=== PATIENT | female | born 1990 ===

== ENCOUNTER 2021-12-29 08:03 | Outpatient (REF) | payer OTHER, SELFPAY ==
[2021-12-30 03:48] LABS: CT PCR DETECTED (Not Detect.); NG PCR NOT DETECTED (Not Detect.)
[2021-12-30 15:27] LABS: BV Int Neg Control Negative (Negative); BV Int Pos Control Positive (Positive)
[2022-01-01 11:43] LABS: HPV mRNA E6/E7 rflx Not Detected (Not Detected)
== END 2021-12-29 08:04 | disposition home or self-care (01) ==
LOC: HO.LAB 08:03
PROVIDERS: Advanced Practice Midwife; PCP Internal Medicine; Referring Provider Internal Medicine; Visit Provider Physician Assistant
DX: Z01.411 Encounter for gynecological examination (general) (routine) with abnormal findings (principal); Z11.51 Encounter for screening for human papillomavirus (HPV); N92.6 Irregular menstruation, unspecified; N91.1 Secondary amenorrhea; E66.01 Morbid (severe) obesity due to excess calories; Z68.43 Body mass index [BMI] 50.0-59.9, adult; J45.909 Unspecified asthma, uncomplicated; Z20.2 Contact with and (suspected) exposure to infections with a predominantly sexual mode of transmission
CPT/HCPCS: 81025; 87480; 87491; 87510; 87591; 87624; 87660; 88142

== ENCOUNTER 2021-12-31 15:42 | Outpatient (REF) | payer OTHER, SELFPAY ==
--- NOTE | ~2021-12-31 | US_ITS ---
EXAMINATION: US PELVIS CLINICAL INFORMATION: Morbid/severe obesity due to excess calories. COMPARISON: None TECHNIQUE: Ultrasound of the pelvis was performed using both transabdominal and transvaginal transducers along with Doppler. Transvaginal imaging was performed due to inadequate visualization transabdominally. FINDINGS: Uterus: The uterus is anteverted, anteflexed and measures 8.2 x 4.9 x 5.4 cm. The double wall endometrial thickness is 0.5 cm. The uterus is smooth in contour and has normal myometrial echogenicity. No visible fibroid. There are small nabothian cysts seen in the cervix. Adnexa: Both ovaries are visualized. There is normal color flow to the adnexa. There is no ovarian torsion. There is no pelvic ascites or fluid collection. Right ovary measures 2.2 x 2.3 x 2.8 cm and volume 7.4 mL. It appears unremarkable. Left ovary measures 2.5 x 1.7 x 1.8 cm and volume 4.0 mL. There is an exophytic anechoic cyst measuring 2.3 x 2.2 x 2.3 cm. Differential diagnosis may represent adnexal cyst. There is no free fluid in cul-de-sac. US/US pelvic and transvaginal IMPRESSION: Multiple small nabothian cysts. The uterus is unremarkable. Exophytic left ovarian or paraovarian cyst.
[2021-12-31 17:29] LABS: Hematocrit 39.2 % (37.0-47.0); Hemoglobin 12.3 g/dl (12.0-16.0); Mean Corpuscular HGB Conc 31.4 g/dl (31.0-35.0); Mean Corpuscular Hemoglobin 26.8 pg (27.0-33.0); Mean Corpuscular Volume 85.4 fL (80.0-98.0); Platelet Count 344 X10*3/uL (160-400); Red Blood Count 4.59 X10*6/uL (4.20-5.50); Red Cell Distribution Width 14.8 % (11.0-16.0); White Blood Count 7.8 X10*3/uL (4.8-10.8)
[2021-12-31 17:42] LABS: Estimated Average Glucose 103 mg/dL; Hemoglobin A1c % 5.2 %
[2021-12-31 18:09] LABS: Syphilis Screen Nonreactive (Nonreactive)
[2021-12-31 18:11] LABS: Thyroid Stimulating Hormone 1.56 uIU/mL (0.32-4.0)
[2022-01-01 08:34] LABS: ~Hepatitis C Antibody Nonreactive (Nonreactive)
[2022-01-01 08:46] LABS: HBsAGNum1 0.17 S/CO (0.00-0.99); HIV AB/AG Nonreactive (Nonreactive); HIV Num 1 0.06 S/CO (0.00-0.99); Hepatitis B Surface Antigen Negative (Negative)
== END 2021-12-31 15:43 | disposition home or self-care (01) ==
LOC: HO.US 15:42
PROVIDERS: PCP Internal Medicine; Visit Provider Advanced Practice Midwife
DX: Z01.419 Encounter for gynecological examination (general) (routine) without abnormal findings (principal); E66.01 Morbid (severe) obesity due to excess calories; N91.1 Secondary amenorrhea; N92.6 Irregular menstruation, unspecified; J45.909 Unspecified asthma, uncomplicated; Z20.2 Contact with and (suspected) exposure to infections with a predominantly sexual mode of transmission
CPT/HCPCS: 36415; 76830; 76856; 83036; 84443; 85027; 86780; 86803; 87340; 87389

== ENCOUNTER → 2022-01-02 12:52 | Outpatient (BNVA) | payer OTHER, SELFPAY | PROVIDERS: PCP Internal Medicine; Referring Provider Internal Medicine; Visit Provider Physician Assistant | DX: E66.01 Morbid (severe) obesity due to excess calories (principal); J45.909 Unspecified asthma, uncomplicated; R40.0 Somnolence | CPT/HCPCS: 99202 ==

== ENCOUNTER → 2022-01-07 09:10 | Outpatient (BNVA) | payer OTHER, SELFPAY | PROVIDERS: PCP Internal Medicine; Visit Provider Advanced Practice Midwife | DX: N76.0 Acute vaginitis (principal); B96.89 Other specified bacterial agents as the cause of diseases classified elsewhere; Z30.09 Encounter for other general counseling and advice on contraception; A74.9 Chlamydial infection, unspecified; E66.01 Morbid (severe) obesity due to excess calories; Z68.43 Body mass index [BMI] 50.0-59.9, adult | CPT/HCPCS: 99212 ==

== ENCOUNTER 2022-01-09 08:28 | Outpatient (REF) | payer OTHER, SELFPAY ==
--- NOTE | ~2022-01-09 | XR_ITS ---
EXAMINATION: XR CHEST CLINICAL INFORMATION: Somnolence. COMPARISON: Chest done on 07/06/2017. TECHNIQUE: 2 views of the chest were obtained. FINDINGS: No significant abnormality is noted involving the heart, lungs, mediastinum, bony thorax or soft tissues. No significant change. XR/XR chest 2V IMPRESSION: Unremarkable examination.
[2022-01-09 09:04] LABS: MANUAL DIFF FLAG NO
--- NOTE | 2022-01-09 09:05 | ECG_ITS ---
Test Reason : R40.0 Blood Pressure : / mmHG Vent. Rate : 073 BPM Atrial Rate : 073 BPM P-R Int : 180 ms QRS Dur : 088 ms QT Int : 384 ms P-R-T Axes : 030 032 022 degrees QTc Int : 423 ms Normal sinus rhythm Normal ECG No previous ECGs available Referred By: Ashely Lockhart Electronically Signed By:Davi Loaiza
[2022-01-09 09:24] LABS: Basophils Percent Auto 0.1 % (0-2); Eosinophils Absolute Auto 0.4 X10*3/uL (0.0-0.4); Eosinophils Percent Auto 6.2 % (0-4); Hematocrit 38.3 % (37.0-47.0); Hemoglobin 12.2 g/dl (12.0-16.0); Imm Gran Abs Auto 0.01 X10*3/uL (0.00-0.03); Imm Gran Pct Auto 0.1 % (0.0-0.4); Lymphocytes Percent Auto 29.1 % (20-40); Mean Corpuscular HGB Conc 31.9 g/dl (31.0-35.0); Mean Corpuscular Hemoglobin 26.7 pg (27.0-33.0); Mean Corpuscular Volume 83.8 fL (80.0-98.0); Mean Platelet Volume 8.8 fL (9.4-12.3); Monocytes Absolute Auto 0.5 X10*3/uL (0.1-1.2); Monocytes Percent Auto 6.7 % (2-11); Neutrophils Absolute Auto 3.9 x10*3/uL (2.0-8.3); Neutrophils Percent Auto 57.8 % (45-73); Platelet Count 321 X10*3/uL (160-400); Red Blood Count 4.57 X10*6/uL (4.20-5.50); Red Cell Distribution Width 14.7 % (11.0-16.0); White Blood Count 6.8 X10*3/uL (4.8-10.8)
[2022-01-09 09:29] LABS: Estimated Average Glucose 100 mg/dL; Hemoglobin A1c % 5.1 %
[2022-01-09 09:52] LABS: Alanine Aminotransferase 31 U/L (0-31); Albumin Level 4.2 g/dL (3.5-5.0); Alkaline Phosphatase 51 U/L (39-117); Anion Gap 13 (12-20); Aspartate Amino Transferase 28 U/L (5-31); Bilirubin Total 0.5 mg/dL (0.0-1.0); Blood Urea Nitrogen 14 mg/dL (9-16); C Reactive Protein 0.61 mg/dL (< or = 0.50); Calcium 9.2 mg/dL (8.4-10.2); Carbon Dioxide 23 mmol/L (22-29); Chloride 107 mmol/L (96-108); Cholesterol 165 mg/dL; Estimated Glomerular Filt Rate > 60; Glucose Random 82 mg/dL (60-115); HDL Cholesterol 49 mg/dL; Iron 37 mcg/dL (30-160); LDL Cholesterol Calculated 105 mg/dl; Percent Iron Saturation 8 % (15-50); Potassium 4.8 mmol/L (3.3-5.1); Sodium 138 mmol/L (135-145); Total Iron Binding Capacity 449 mcg/dL (228-428); Total Protein 7.4 g/dL (6.5-8.0); Triglycerides 56 mg/dL; Unsaturated Iron Binding 412 ug/dL
[2022-01-09 10:18] LABS: Ferritin 26 ng/mL (10-122); TSH reflex Free T4 0.71 uIU/mL (0.32-4.0); Vitamin D 25-OH Total 10.1 ng/mL (>30)
[2022-01-09 10:25] LABS: Folate 17.5 ng/mL (> or = 4.0); Vitamin B12 216 pg/mL (200-900)
[2022-01-09 10:44] LABS: Insulin 11 uU/mL (2-29)
[2022-01-12 13:56] LABS: Calcium (PTHI) 9.5 mg/dL (8.6-10.2); PTHI 132 pg/mL (16-77)
[2022-01-13 16:01] LABS: Zinc 76 mcg/dL (60-130)
[2022-01-14 08:56] LABS: Vitamin A 61 mcg/dL (38-98)
[2022-01-17 12:12] LABS: Vitamin B1 9 nmol/L (8-30)
== END 2022-01-09 08:29 | disposition home or self-care (01) ==
LOC: HO.LAB 08:28
PROVIDERS: PCP Internal Medicine; Visit Provider Physician Assistant
DX: Z01.818 Encounter for other preprocedural examination (principal); E66.01 Morbid (severe) obesity due to excess calories; J45.909 Unspecified asthma, uncomplicated; R40.0 Somnolence
CPT/HCPCS: 36415; 71046; 80053; 80061; 82306; 82607; 82728; 82746; 83036; 83525; 83540; 83970; 84425; 84443; 84590; 84630; 85025; 86140; 93005

== ENCOUNTER → 2022-01-23 12:54 | Outpatient (BNVA) | payer OTHER, SELFPAY | PROVIDERS: PCP Internal Medicine; Referring Provider Internal Medicine; Visit Provider Physician Assistant | DX: E66.01 Morbid (severe) obesity due to excess calories (principal); Z68.43 Body mass index [BMI] 50.0-59.9, adult | CPT/HCPCS: 83013; 99211; 99212 ==

== ENCOUNTER 2022-01-23 15:50 | Outpatient (REF) | payer OTHER, SELFPAY ==
[2022-01-25 11:22] LABS: H Pylori Breath Test Positive (Negative)
== END 2022-01-23 15:51 | disposition home or self-care (01) ==
LOC: HO.LNP 15:50
PROVIDERS: Visit Provider Physician Assistant
DX: Z13.89 Encounter for screening for other disorder (principal)
CPT/HCPCS: 83013

== ENCOUNTER → 2022-01-27 12:50 | Outpatient (BNVA) | payer OTHER, SELFPAY | PROVIDERS: PCP Internal Medicine; Referring Provider Internal Medicine; Visit Provider Dietitian, Registered | DX: E66.01 Morbid (severe) obesity due to excess calories (principal) | CPT/HCPCS: 97802 ==

== ENCOUNTER 2022-02-06 11:37 | Outpatient (REF) | payer OTHER, SELFPAY ==
[2022-02-06 17:15] LABS: CT PCR NOT DETECTED (Not Detect.); NG PCR NOT DETECTED (Not Detect.)
[2022-02-07 09:47] LABS: BV Int Neg Control Negative (Negative); BV Int Pos Control Positive (Positive)
[2022-02-27 02:17] LABS: HPV mRNA E6/E7 rflx Not Detected (Not Detected)
== END 2022-02-06 11:38 | disposition home or self-care (01) ==
LOC: HO.LAB 11:37
PROVIDERS: PCP Internal Medicine; Visit Provider Advanced Practice Midwife
DX: Z30.430 Encounter for insertion of intrauterine contraceptive device (principal); A74.9 Chlamydial infection, unspecified; B96.89 Other specified bacterial agents as the cause of diseases classified elsewhere; N76.0 Acute vaginitis; N91.1 Secondary amenorrhea; E66.01 Morbid (severe) obesity due to excess calories
CPT/HCPCS: 58300; 81025; 87480; 87491; 87510; 87591; 87624; 87660; 88142; 99212; J7298

== ENCOUNTER 2022-02-18 09:27 | Outpatient (REF) | payer OTHER, SELFPAY ==
--- NOTE | ~2022-02-18 | US_ITS ---
EXAMINATION: US COMPLETE ABDOMEN WITH LIVER ELASTOGRAPHY CLINICAL INFORMATION: Preoperative exam. Obesity. COMPARISON: Ultrasound abdomen 07/25/2008. TECHNIQUE: Real-time imaging of the abdominal viscera. Noninvasive ultrasound liver fibrosis assessment is performed using John ElastPQ point quantification shear wave elastography (2D-SWE) with a C5-2 MHz transducer. Multiple elastography samples are obtained. FINDINGS: PANCREAS: The visualized pancreatic head and body are normal in appearance. The tail of the pancreas is obscured from visualization by the overlying bowel gas. ABDOMINAL AORTA: The proximal, middle, and distal aortic segments are normal in caliber. INFERIOR VENA CAVA: Visualized portions are normal. LIVER: The liver demonstrates normal size, contour and echogenicity. No focal lesion or intrahepatic biliary duct dilatation. The right lobe measures 16.1 cm in length. The left lobe measures 13.6 cm in length. Portal flow is hepatopetal. Shear wave liver elastography median stiffness is 2.40 m/s (reference: normal median stiffness is 1.3 m/s or less). IQR/median stiffness to assess sampling precision is 0.08 (reference: good quality data set is IQR/median stiffness of 0.15 or less). GALLBLADDER: The gallbladder has been surgically removed. COMMON BILE DUCT: Normal in caliber measuring 0.67 cm in diameter. RIGHT KIDNEY: Normal. No hydronephrosis. No renal calculi or focal parenchymal lesions. The kidney measures 12.1 cm in maximum dimension. LEFT KIDNEY: Normal. No hydronephrosis. No renal calculi or focal parenchymal lesions. The kidney measures 11.5 cm in maximum dimension. SPLEEN: The spleen is enlarged. The spleen measures 15.1 cm in maximum dimension. FREE FLUID: None. US/US abdomen comp w elastography IMPRESSION: 1. Diffuse hepatic steatosis without focal lesion. 2. The rest of the abdominal ultrasound is unremarkable. 3. Liver elastography: Median liver stiffness 2.40 m/s corresponds to cACLD (ruled in). REFERENCE: Society of Radiologists in Ultrasound Liver Stiffness Thresholds (2020): LIVER STIFFNESS THRESHOLDS: *Liver Stiffness equal or less than 1.3 m/s: High probability of being normal. *Liver Stiffness less than 1.7 m/s: In the absence of other known clinical signs, rules out compensated advanced chronic liver disease. *Liver Stiffness 1.7-2.1 m/s: Suggestive of compensated advanced chronic liver disease but need further test for confirmation. *Liver Stiffness over 2.1 m/s: Rules in compensated advanced chronic liver disease. *Liver Stiffness over 2.4 m/s: Suggestive of clinically significant portal hypertension. QUALITY OF DATA SET: *IQR/Median value equal or less than 0.15 implies a quality data set. *IQR/Median value over 0.15 implies a poor quality data set. SIGNIFICANT CHANGE FROM PRIOR EXAM: Significant change if liver stiffness measurement is 10% or greater from prior exam. OTHER CONSIDERATIONS: The stage of liver fibrosis may be overestimated in the setting of acute hepatitis, liver inflammation, elevated liver function tests, hepatic vascular congestion, obstructive cholestasis, non-fasting state, and infiltrative diseases such as amyloidosis and lymphoma. In some patients with NAFLD, the liver stiffness thresholds for compensated advanced chronic liver disease may be lower. In causes other than viral hepatitis and NAFLD, liver stiffness thresholds are not well established.
--- NOTE | ~2022-02-18 | FL_ITS ---
EXAMINATION: XR FLUOROSCOPY UPPER GI WITH AIR CLINICAL INFORMATION: Upper GI air-contrast study. COMPARISON: Obesity. Preop exam. TECHNIQUE: Routine upper GI air-contrast study was performed in upright and lying position. FINDINGS: Following oral administration of thick barium and effervescent granules, there is normal propagation of bolus from the oral cavity through the pharynx, esophagus into stomach without any evidence of obstruction, narrowing or stricture. The course, caliber and peristalsis of the stomach, duodenal bulb and the sweep are normal. The mucosal pattern of the stomach and duodenum is normal. There is no gastroesophageal reflux or hiatal hernia. FLUOROSCOPY TIME: 1.8 minutes DOSE AREA PRODUCT: 70.064 uGy-m2 (microgray-meter squared) FL/FL upper GI w air IMPRESSION: Unremarkable upper GI air-contrast study.
== END 2022-02-18 09:28 | disposition home or self-care (01) ==
LOC: HO.US 09:27
PROVIDERS: Visit Provider Physician Assistant
DX: Z01.818 Encounter for other preprocedural examination (principal); E66.01 Morbid (severe) obesity due to excess calories; R40.0 Somnolence; J45.909 Unspecified asthma, uncomplicated
CPT/HCPCS: 74246; 76705; 76981

== ENCOUNTER 2022-02-25 10:10 | Outpatient (REF) | payer OTHER, SELFPAY | END 2022-02-25 10:11 | disposition home or self-care (01) | LOC: HO.LAB 10:10 | PROVIDERS: Visit Provider Advanced Practice Midwife | DX: Z13.89 Encounter for screening for other disorder (principal) ==

== ENCOUNTER → 2022-02-27 15:03 | Outpatient (BNVA) | payer OTHER, SELFPAY | PROVIDERS: PCP Internal Medicine; Referring Provider Internal Medicine; Visit Provider Physician Assistant | DX: E66.01 Morbid (severe) obesity due to excess calories (principal); A04.8 Other specified bacterial intestinal infections; Z68.43 Body mass index [BMI] 50.0-59.9, adult | CPT/HCPCS: 99212 ==

== ENCOUNTER → 2022-03-06 12:51 | Outpatient (BNVA) | payer OTHER, SELFPAY | PROVIDERS: PCP Internal Medicine; Visit Provider Physician Assistant | DX: Z11.0 Encounter for screening for intestinal infectious diseases (principal) | CPT/HCPCS: 99211 ==

== ENCOUNTER 2022-03-06 15:13 | Outpatient (REF) | payer OTHER, SELFPAY ==
[2022-03-07 13:51] LABS: H Pylori Breath Test Negative (Negative)
== END 2022-03-06 15:14 | disposition home or self-care (01) ==
LOC: HO.LNP 15:13
PROVIDERS: Visit Provider Physician Assistant
DX: Z01.818 Encounter for other preprocedural examination (principal)
CPT/HCPCS: 83013

== ENCOUNTER → 2022-04-06 12:50 | Outpatient (BNVA) | payer OTHER, SELFPAY | PROVIDERS: PCP Internal Medicine; Visit Provider Physician Assistant | DX: E66.01 Morbid (severe) obesity due to excess calories (principal); Z68.43 Body mass index [BMI] 50.0-59.9, adult; I10 Essential (primary) hypertension | CPT/HCPCS: 99212 ==

== ENCOUNTER → 2022-04-27 14:01 | Outpatient (BNVA) | payer OTHER, SELFPAY | PROVIDERS: PCP Internal Medicine; Visit Provider Physician Assistant | DX: E66.01 Morbid (severe) obesity due to excess calories (principal); Z68.43 Body mass index [BMI] 50.0-59.9, adult | CPT/HCPCS: 99212 ==

== ENCOUNTER 2022-06-09 08:08 | Inpatient (IN) | payer OTHER, SELFPAY ==
[2022-05-26 15:23] VITALS: BMI 50.9
[2022-05-27 09:22] LABS: MANUAL DIFF FLAG NO
[2022-05-27 09:37] LABS: Basophils Percent Auto 0.3 % (0-2); Eosinophils Absolute Auto 0.3 X10*3/uL (0.0-0.4); Eosinophils Percent Auto 4.1 % (0-4); Hematocrit 38.4 % (37.0-47.0); Hemoglobin 12.7 g/dl (12.0-16.0); Imm Gran Abs Auto 0.02 X10*3/uL (0.00-0.03); Imm Gran Pct Auto 0.3 % (0.0-0.4); Lymphocytes Absolute Auto 1.6 X10*3/uL (1.2-4.9); Lymphocytes Percent Auto 22.5 % (20-40); Mean Corpuscular HGB Conc 33.1 g/dl (31.0-35.0); Mean Corpuscular Hemoglobin 27.1 pg (27.0-33.0); Mean Corpuscular Volume 81.9 fL (80.0-98.0); Mean Platelet Volume 9.2 fL (9.4-12.3); Monocytes Absolute Auto 0.5 X10*3/uL (0.1-1.2); Monocytes Percent Auto 6.4 % (2-11); Neutrophils Absolute Auto 4.6 x10*3/uL (2.0-8.3); Neutrophils Percent Auto 66.4 % (45-73); Platelet Count 365 X10*3/uL (160-400); Red Blood Count 4.69 X10*6/uL (4.20-5.50); Red Cell Distribution Width 14.2 % (11.0-16.0)
[2022-05-27 09:46] LABS: Estimated Average Glucose 97 mg/dL
[2022-05-27 09:52] LABS: Prothrombin Time 11.7 SEC (10.0-13.1)
[2022-05-27 09:54] LABS: Partial Thromboplastin Time 36.3 SEC (26.0-36.4)
[2022-05-27 10:04] LABS: Alanine Aminotransferase 19 U/L (0-31); Albumin Level 4.5 g/dL (3.5-5.0); Alkaline Phosphatase 49 U/L (39-117); Anion Gap 15 (12-20); Aspartate Amino Transferase 27 U/L (5-31); Bilirubin Total 0.7 mg/dL (0.0-1.0); Blood Urea Nitrogen 20 mg/dL (9-16); C Reactive Protein 0.97 mg/dL (< or = 0.50); Calcium 9.6 mg/dL (8.4-10.2); Carbon Dioxide 23 mmol/L (22-29); Chloride 106 mmol/L (96-108); Cholesterol 186 mg/dL; Creatinine Clr Calc Pharmacy 130.2; Estimated Glomerular Filt Rate > 60; Glucose Random 84 mg/dL (60-115); HDL Cholesterol 44 mg/dL; LDL Cholesterol Calculated 130 mg/dl; Potassium 4.3 mmol/L (3.3-5.1); Sodium 140 mmol/L (135-145); Total Protein 7.5 g/dL (6.5-8.0); Triglycerides 60 mg/dL
[2022-05-27 10:35] LABS: TSH reflex Free T4 0.97 uIU/mL (0.32-4.0)
[2022-05-27 11:10] LABS: Insulin 15 uU/mL (2-29)
--- NOTE | 2022-06-05 20:10 | MHC.SHP ---
Pre-Procedural Eval Section A Date of Service: 06/05/22 The patient is an INPATIENT: Yes The History & Physical has been completed within 30 days and I have reviewed it.: Yes Section B Chief Complaint: obesity Relevant Family History (Specify if Yes): No Relevant Social History: None Present Medications: None Medical History: No relevant PMH History of Previous Operations: No relevant previous surgery Allergies: Allergies Allergy/AdvReac Type Severity Reaction Status Date / Time No Known Allergies Allergy Mild NKA Verified 04/27/22 14:09 Review of Systems Sugical H&P ROS: Negative: Constitution, Cardiovascular, Respiratory, Neurological, Psychiatric, Hem-Onc, Allergic/Immunologic, Gastrointestinal, Genitourinary, Musculoskeletal, Integumentary, Endocrine and Eyes/Ears/Nose/Throat Exam Surgical H&P Exam: Normal: HEENT, Normal: Heart, Normal: Lungs, Normal: Extremities, Normal: Abdomen, Normal: Skin and Normal: Neurological Plan Diagnosis/Plan: Unchanged I have reviewed the history and physical and performed a pertinent physical examination on my patient. No changes have occurred unless specified.
--- NOTE | 2022-06-08 10:34 | P.CONAN_ITS ---
Documented by User: Carmen Zhou NP 06/08/22 10:36 HPI - Anesthesia Eval Consult details Narrative: 32yo F for Gastrectomy Sleeve,Possible diaphragmatic hernia,possible ventral hernia,possible open PMFSH Active Problems Active Problems: All Active Problems (Updated 05/26/22 @ 15:26 by Linda Uriarte RN) Potential exposure to STD (Acute) Well woman exam with routine gynecological exam (Acute) Amenorrhea, secondary (Acute) Menstrual periods irregular (Acute) Obesity, morbid, BMI 50 or higher (Acute) Daytime somnolence (Acute) Pre-op evaluation (Acute) Chlamydia infection (Acute) Bacterial vaginosis (Acute) control counseling (Acute) Cervical cancer screening (Acute) H. pylori infection (Acute) Hypertension (Acute) GERD (gastroesophageal reflux disease) (Acute) Moderate asthma (Acute) Past Medical History Medical History GERD (gastroesophageal reflux disease) HTN (hypertension) Moderate asthma Family History Family History Father Hypertension Glaucoma Mother Hypertension Asthma Son In good health Sister In good health Sister No problems noted. Brother No problems noted. Surgical History Surgical History History of laparoscopic cholecystectomy Social History Social History Are you a primary health care marketing specialist to a significant other at home: No Do you presently have visiting nurse or other home services: No Alcohol intake: current Alcohol intake frequency: holidays/special occasions only Patient Tobacco Use Status: Former Tobacco user Quit Date: 04/27/22 Tobacco use type: Cigarette Cigarettes Per Day: 5 Use of substances other than those prescribed or required for medical reasons: No Have you been hit, kicked, punched, or otherwise hurt by someone within the past year? If so, by whom?: No Are you DNR?: No Advance Directives: No Advance Directives Information Provided: Yes (brochure mailed) Advance Directives on File: No Recently lost weight without trying: No Eating poorly because of decreased appetite: No Nutrition Risks: No Nutritional Risk Patient : No FDLMP: 05/21/22 : No Poor oral hygiene: No Meds Allergies Allergy/AdvReac Type Severity Reaction Status Date / Time No Known Allergies Allergy Mild NKA Verified 04/27/22 14:09 Exam Exam Date and Time: June 08, 2022 1034 Height,Weight and Vital Signs: Height 5 ft 5 in Weight 138.799 kg Pertinent Lab Results Pertinent Lab Results: Laboratory Tests 05/27/22 05/27/22 05/27/22 09:20 09:20 09:20 WBC 7.0 RBC 4.69 Hgb 12.7 Hct 38.4 MCV 81.9 MCH 27.1 MCHC 33.1 RDW 14.2 Plt Count 365 MPV 9.2 L Immature Gran % (Auto) 0.3 Neut % (Auto) 66.4 Lymph % (Auto) 22.5 [place] % (Auto) 6.4 Eos % (Auto) 4.1 H Baso % (Auto) 0.3 Lymph # (Auto) 1.6 [place] # (Auto) 0.5 Eos # (Auto) 0.3 Baso # (Auto) 0.0 Abs Immat Gran (auto) 0.02 Absolute Neuts (auto) 4.6 Absolute Nucleated RBC 0.000 Nucleated RBC % (auto) 0.0 PT 11.7 INR 1.0 APTT 36.3 Sodium 140 Potassium 4.3 Chloride 106 Carbon Dioxide 23 Anion Gap 15 BUN 20 H Creatinine 0.87 Estim Creat Clear Calc 130.2 Estimated GFR > 60 Random Glucose 84 Estimat Average Glucose Hemoglobin A1c % Insulin Level 15 Calcium 9.6 Total Bilirubin 0.7 AST 27 ALT 19 Alkaline Phosphatase 49 C-Reactive Protein 0.97 H Total Protein 7.5 Albumin 4.5 Triglycerides 60 Cholesterol 186 LDL Cholesterol, Calc 130 HDL Cholesterol 44 TSH 0.97 Blood Type Antibody Screen 05/27/22 05/27/22 09:20 09:20 WBC RBC Hgb Hct MCV MCH MCHC RDW Plt Count MPV Immature Gran % (Auto) Neut % (Auto) Lymph % (Auto) [place] % (Auto) Eos % (Auto) Baso % (Auto) Lymph # (Auto) [place] # (Auto) Eos # (Auto) Baso # (Auto) Abs Immat Gran (auto) Absolute Neuts (auto) Absolute Nucleated RBC Nucleated RBC % (auto) PT INR APTT Sodium Potassium Chloride Carbon Dioxide Anion Gap BUN Creatinine Estim Creat Clear Calc Estimated GFR Random Glucose Estimat Average Glucose 97 Hemoglobin A1c % 5.0 Insulin Level Calcium Total Bilirubin AST ALT Alkaline Phosphatase C-Reactive Protein Total Protein Albumin Triglycerides Cholesterol LDL Cholesterol, Calc HDL Cholesterol TSH Blood Type A Positive Antibody Screen NEGATIVE Narrative Narrative: EKG 12/2021 Vent. Rate : 073 BPM ? ? Atrial Rate : 073 BPM ?? P-R Int : 180 ms? QRS Dur : 088 ms ? ? QT Int : 384 ms ? ? ? P-R-T Axes : 030 032 022 degrees ?? QTc Int : 423 ms ? Normal sinus rhythm Normal ECG No previous ECGs available Documented by User: Umesh Wilkinson MD 06/09/22 10:59 PMFSH Past Medical History Medical History GERD (gastroesophageal reflux disease) HTN (hypertension) Moderate asthma Family History Family History Father Hypertension Glaucoma Mother Hypertension Asthma Son In good health Sister In good health Sister No problems noted. Brother No problems noted. Family history of problems with anesthesia: No Surgical History Surgical History History of laparoscopic cholecystectomy History of Problems with Anesthesia: No Social History Social History Are you a primary health care marketing specialist to a significant other at home: No Do you presently have visiting nurse or other home services: No Alcohol intake: current Alcohol intake frequency: holidays/special occasions only Patient Tobacco Use Status: Former Tobacco user Quit Date: 04/27/22 Tobacco use type: Cigarette Cigarettes Per Day: 5 Use of substances other than those prescribed or required for medical reasons: No Have you been hit, kicked, punched, or otherwise hurt by someone within the past year? If so, by whom?: No Are you DNR?: No Advance Directives: No Advance Directives Information Provided: Yes (brochure mailed) Advance Directives on File: No Recently lost weight without trying: No Eating poorly because of decreased appetite: No Nutrition Risks: No Nutritional Risk Patient : No FDLMP: 05/21/22 : No Poor oral hygiene: No Meds Allergies Allergy/AdvReac Type Severity Reaction Status Date / Time No Known Allergies Allergy Mild NKA Verified 04/27/22 14:09 Exam Airway Mallampati Class: III TM Dist: >3cm Neck ROM: Full Loose/Missing/Broken Teeth: No Heart: rrr+[id number] Lungs: cta b/l Assessment and Plan Assessment Anesthesia Assessment: Anesthesia Plan Discussed and Chart Reviewed Final Anesthetic Review Family History of Problems with Anesthesia: No History of Problems with Anesthesia: No NPO: Yes ASA Class: III Final Preanesthetic Review: No Changes in Pt Med Stat, Meds/Allgs Chart Reviewed, Consent Obtained/Reviewed and Anes Risks/Benef Reviewed Patient Risk: Intermediate Procedure Risk: Intermediate Assessment/Block/Sedation in SS: Assess/Block/Sedation-SS Anesthetic Plan Anesthetic Plan: GA and Agree w/ Assess. and Plan Disposition: Standard PACU
[2022-06-08 12:55] LABS: COVID-19 Test Negative (Negative)
[2022-06-09] VITALS (20 sets, daily range): BP systolic 129–167; BP diastolic 65–105; PULSE 85–102; RESP 16–20; TEMP 36.2–37.3; O2SAT 93–99
[2022-06-09 08:26] LABS: UPreg QC Valid YES; Urine Pregnancy NEGATIVE (NEGATIVE)
--- NOTE | 2022-06-09 08:26 | PHA.MEDREC ---
Pharmacy Consult ? Medication Reconciliation Pharmacy has completed the medication reconciliation. Reviewed med rec done by nursing
[2022-06-09] MEDS: Lactated Ringers 1,000 ML 999 ML IV (08:50)
[2022-06-09] MEDS: Lactated Ringers 1,000 ML 100 ML IVCONT ×2 (08:51→14:53)
--- NOTE | 2022-06-09 11:06 | PM.OP ---
Brief Operative Note Date of Service: 06/09/22 Pre-op diagnosis: Morbid obesity and comorbidities (see below) Post-op diagnosis: same Procedure: INITIAL PATIENT BMI ON PRESENTATION AT OUR OFFICE: 57.2 kg/m2 LAST BMI BEFORE SURGERY: 50.2 kg/m2 COMORBIDITIES: asthma, hypertension, liver steatosis, liver fibrosis ?The patient presented to the Weight Management Program with significant obesity that was negatively impacting the patient's comorbidities as listed above.? The program is a phased program with a special focus on preoperative medical weight management to promote substantial weight loss and prepare the patients for the second phase of the program: bariatric surgery. The patient participated in an intensive weekly lifestyle ?intervention and exercise program during which the patient ?has lost between the initial office visit and the last preoperative visit 41.6 lbs, or 12.11% of initial actual body weight. It was deemed appropriate for the patient to now have bariatric surgery. In light of the current Covid-19 pandemic and the well documented strong association of obesity and increased risk of worse outcomes if infected with Covid-19 (REFERENCES:https://pubmed.ncbi.nlm.nih.gov/58213111/,?https://pubmed.ncbi.nlm.nih.gov/38012972/), any delay in undergoing bariatric surgery may lead to the patient's worsening health condition and increased?risk of more severe Covid-19 disease if infected. In addition a recent?study from [facility] published in [employer] on 09/22/2021 ([email or web address]) found that, among patients with obesity, substantial weight loss achieved with surgery was associated with improved outcomes of COVID-19 infection. The findings suggest that obesity can be a modifiable risk factor for the severity of COVID-19 infection. In addition, the patient met the BMI-criteria for bariatric surgery based on the BMI on initial presentation. The patient should not be penalized for achieving such weight loss because ?it is not sustainable long-term without surgical intervention and it was achieved in preparation for bariatric surgery ?under my direction and based on my published research ([email or web address] and?[email or web address].soard.org/article/[email or web address](84)03549-X/pdf) ?that a 10% preoperative weight loss improves long-term weight loss after surgery and reduces perioperative complications.? Insurance carriers such as [facility] have endorsed my recommendations ?and have included in their policies criteria to include a 10% preoperative weight loss requirement. PROCEDURE: Esophago-gastroscopy, laparoscopic lysis of adhesions, laparoscopic sleeve gastrectomy and laparoscopic gastropexy INDICATIONS: This is a 32 year-old female who was electively scheduled for laparoscopic, possibly open sleeve gastrectomy. The risks and complications of the procedure were discussed with the patient in advance, particularly the possibility of ; pulmonary embolism; staple line leak; bleeding; GERD; cardiac, pulmonary, or renal complications; as well as long-term problems such as insufficient weight loss, vitamin deficiency, strictures, or ulcers. The patient understood all the risks, and was in agreement to proceed with surgery. DESCRIPTION OF PROCEDURE: After informed consent was obtained from the patient, the patient was given preoperative antibiotics, and was transferred to the operating room. After successful induction of general anesthesia, pneumatic compression devices were placed on both lower extremities. An upper endoscopy was performed next. The oropharynx and esophagus appeared to be within normal limits. There was no diaphragmatic hernia present consistent with the findings of the preoperative upper GI. The stomach was entered. Then after all fluid and air were suctioned and the stomach was fully decompressed, the scope was withdrawn and secured in the mid esophagus. The patient was then prepped and draped in the usual sterile manner, and abdominal access was established at the right upper quadrant with the Adal technique. A 12 mm blunt port was inserted, and the abdomen was insufflated with CO2 to a pressure of 15 mmHg. Under direct visualization, additional ports were placed, specifically two 5 mm Versi-step ports to the left upper quadrant, and a 5 mm Versi-Step port to the right upper quadrant. 1% lidocaine plain was used to infiltrate all port sites as well as all fascia defects. Following that, the patient was placed in a steep reverse Trendelenburg position. An additional 5 mm port was placed to the right flank for the Mediflex retractor that was used to retract the left lobe of the liver. The gastro-esophageal fat pad was opened with the ultrasonic device (Thunderbeat, Olympus) and the anterior esophagus and hiatus were exposed. The angle of His was opened with the ultrasonic device the fundus of the stomach from any diaphragmatic and splenic attachments. I then opened the gastrocolic ligament between the transverse colon and the greater curvature of the stomach with the ultrasonic device to enter the lesser sac and facilitate the ligation of the short gastric vessels. I started at a mid-point along the greater curvature and using the Thunderbeat, all short gastric vessels were divided all the way to the angle of His until the left otf was completely dissected at its entirety. I then divided the gastro-colic ligament distally to a distance of about 3-4 cm proximal to the pylorus. There were extensive congenital adhesions between the pancreas and posterior gastric wall. Those were lysed completely with the ultrasonic device. Adhesiolysis took approximately 45 min to complete. The stomach was then divided transversely with one Endo JESSIE-45 purple, one JESSIE-45 orange load, one JESSIE-60 purple load and three JESSIE-60 articulating orange loads using the AEON stapler and loads. Every effort was made that the gastric sleeve had a tubular shape and an even caliber throughout. Once the sleeve resection was completed, the staple line of the gastric sleeve was reinforced with Hemoclips. The resected stomach was retrieved without difficulty from the Adal port. A gastropexy was then performed in order to prevent postoperative GERD and partial gastric volvulus. Several interrupted 2.0 Surgidac sutures were placed between the sleeve's staple line and the previously divided greater omentum and gastro-colic ligament using the Endo-Stitch device. ?An upper endoscopy was performed. There was no narrowing at the GE junction. The scope was easily advanced all the way to the pylorus which was clearly visualized. There was no narrowing anywhere and the sleeve's caliber was even throughout. The sleeve's staple line was inspected and there was no evidence of ischemia, bleeding or dehiscence. At that point the gastroscope was withdrawn from the patient?s mouth while we were decompressing the bowel and the stomach from any remaining air. I looked into the lesser sac to see how the sleeve was situating and it was situating well. There was no bleeding from the staple line, spleen, or short gastric vessels. The Mediflex retractor was removed, and the undersurface of the liver was inspected and there was no bleeding. The patient was placed in supine position. I closed the fascial defect of the 12 mm port site with a figure of eight #1 Polysorb suture. Then 30cc Ropivacaine plain with 10 mg of Dexamethasone were used to infiltrate the fascial closure as well as all skin incisions. A total of 7ml of Zynrelef was applied in the Adal wound. At this point, the abdomen was deflated, all ports were removed under direct vision, and no bleeding was noted from any of the port sites. The skin incisions were irrigated with saline and were closed with 4-0 absorbable monofilament sutures. Steri-Strips and OpSites were used to cover all incisions. The patient was extubated and was transferred in stable condition to the recovery room for further care. I was present and performed all cody parts of the procedure. Richy was the educational/development assistant. There were no residents to assist with this case. Xu Newton MD, PhD, FACS Surgeon: Flavio Newton MD Anesthesia: GETA, local and other (TAP block and ml of Zynrelef) Was an Balance Engineer used for this Procedure?: No Balance Engineer: Ashely Lockhart Estimated blood loss (mL): 10 Urine output (mL): 0 (No Patel to record) Pathology: other (Stomach) Condition: stable Disposition: PACU
--- NOTE | 2022-06-09 11:08 | PM.PNGS ---
Subjective Subjective Date of Service: 06/10/22 Interval history: Patient has mild incisional pain, but was able to ambulate and use the incentive spirometer. She is tolerating phase 1 bariatric diet Physical Exam Vital Signs: Vital Signs: Last Vital Signs Temp 97.1 F 06/09/22 08:24 Pulse 98 06/09/22 08:24 Resp 18 06/09/22 08:24 BP 151/88 H 06/09/22 08:24 Pulse Ox 98 06/09/22 08:24 O2 Del Method 06/09/22 08:24 BMI result Body Mass Index 50.9 GI: Inspection: Yes normal to inspection, Yes incision (clean, dry and intact) and Yes obesity Extrem: Right lower extremity: normal to inspection (no calf tenderness) Left lower extremity: normal to inspection (no calf tenderness) Objective Data Active Medications Albuterol Sulfate (Albuterol Sulfate (0.083%) 2.5 Mg/3 Ml Vial.Neb) 2.5 mg INHALE ONCE PRN PRN Reason: Shortness of Breath/Wheezing Fentanyl (Fentanyl Citrate/Pf 100 Mcg/2 Ml Vial) 50 mcg IVPUSH Q5M PRN; Protocol PRN Reason: Pain, Moderate (Pain Scale 4-6 Hydromorphone HCl (Hydromorphone Hcl 0.5 Mg/0.5 Ml Syringe) 0.5 mg IVPUSH Q5M PRN; Protocol PRN Reason: Pain, Severe (Pain Scale 7-10) Lactated Ringer's (Lr) 1,000 mls @ 100 mls/hr IVCONT .Q10H MARY BETH Last Admin: 06/09/22 08:51 Dose: 100 mls/hr Documented By: MICHELLE Promethazine HCl 6.25 mg/ (Sodium Chloride) 50.25 mls @ 201 mls/hr IV ONCE PRN PRN Reason: Nausea and Vomiting Ondansetron HCl (Ondansetron Hcl 4 Mg/2 Ml Vial) 4 mg IVPUSH ONCE PRN PRN Reason: Nausea and Vomiting Labs CBC & Chem 7: 06/10/22 06:03 06/10/22 06:03 Labs: Laboratory Results - last 24 hr 06/08/22 06/09/22 12:28 08:09 Urine Test NEGATIVE COVID-19 (YONIS) Negative COVID-19 Clin Com See Note Procedures Date of Service Date of Service: 06/10/22 Progress Note: A&P Assessment and plan (1) Obesity, morbid, BMI 50 or higher: Status: Acute Assessment and Plan: s/p laparoscopic sleeve gastrectomy, lysis of adhesions and gastropexy Doing well Check am labs. If OK, will discharge home (2) GERD (gastroesophageal reflux disease): Status: Acute (3) Moderate asthma: Status: Acute (4) Hypertension: Status: Acute (5) Steatosis, liver: Status: Acute (6) Liver fibrosis: Status: Acute (7) S/P laparoscopic sleeve gastrectomy: Status: Acute (8) Congenital intra-abdominal adhesions: Status: Acute Time Spent With Patient Time: Total time spent is greater than 50% in coordination of care (as documented) at patient's floor/unit and/or counseling patient: Quality Stroke Does the patient have a stroke diagnosis?: No VTE Prior VTE?: No VTE Risk Level:: Surgical - moderate VTE Device Contraindication: N/A - Device Ordered VTE Drug Contraindication: Treatment Not Indicated
--- NOTE | 2022-06-09 13:53 | P.DS_ITS ---
DS: Providers Provider Date of Service: 06/10/22 Date of admission: 06/09/22 08:08 Primary care physician: Unknown Physician DS: Diagnosis Discharge Diagnosis (1) Obesity, morbid, BMI 50 or higher: Status: Acute (2) GERD (gastroesophageal reflux disease): Status: Acute (3) Moderate asthma: Status: Acute (4) Hypertension: Status: Acute (5) Steatosis, liver: Status: Acute (6) Liver fibrosis: Status: Acute DS: Summary Hospital Course Hospital Course: ADMITTING DIAGNOSIS: morbid obesity, asthma DISCHARGE DIAGNOSIS: same, s/p laparoscopic sleeve gastrectomy PAST SURGICAL HISTORY: lap cholecystectomy PROCEDURE: upper endoscopy, laparoscopic sleeve gastrectomy DISCHARGE SUMMARY: History of Present Illness: The patient is a 32 year-old woman with a BMI of 57.2 kg/m2 and associated co- morbidities as described above. The patient had extensive work-up,lost 32 lbs preoperatively and was electively scheduled for laparoscopic, possible open sleeve gastrectomy and gastropexy. Risks and complications of the surgery were discussed with the patient in advance, particularly the possibility of , pulmonary embolism, anastomotic leak, bleeding, bowel injury, GERD, cardiac, renal or pulmonary complications. The patient understood all the risks and was in agreement with the surgical plan. Hospital Course: The patient underwent an uneventful laparoscopic sleeve gastrectomy with gastropexy on the day of admission. Postoperatively, the patient was transferred to the surgical floor. The patient received IV Acetaminophen and IV dilaudid for pain control. Patient was started on bariatric phase 1 diet POD #0. On postoperative day one, the patient was feeling well without nausea, vomiting, fevers, or tachycardia. The patient had some mild incisional pain and the abdomen was soft. On the morning of postoperative day one, the patient was continued on 1 ounce of water or ice every half hour. During the day, the patient did fairly well, having some incisional pain, but able to ambulate adequately and to tolerate liquids well. Since the patient is doing well, we decided that the patient was ready to be discharged. The patient was given instructions to follow-up with me next week and to call my office for any fever over 101, persistent abdominal pain, nausea, vomiting, GERD, symptoms of DVT such as calf tenderness, or leg swelling, or pulmonary embolism such as chest pain or shortness of breath. The patient was also instructed to drink 40-60 ounces of liquids per day using the 1-ounce cups. The patient had been given prescriptions for Tylenol for pain, Zofran prn for nausea, and pantoprazole and carafate previously. The patient was encouraged to ambulate and use the incentive spirometer. The patient was allowed to shower, but no baths, and encouraged to stay active at home. All of these instructions were given to the patient personally. All questions were answered and the patient understood all instructions, the instructions were also given to the patient in print. Time Spent with Patient Time attestation: Total time spent providing and/or coordinating discharge services: Discharge coordination time: Less than 30 minutes Quality: Safe Use of Opioids Does Pt have an Active Cancer Diagnosis on the Problem List?: No Quality: Stroke Does the patient have a stroke diagnosis?: No Physical Exam Vital Signs: Vital Signs: Last Vital Signs Temp 97.1 F 06/09/22 08:24 Pulse 98 06/09/22 08:24 Resp 18 06/09/22 08:24 BP 151/88 H 06/09/22 08:24 Pulse Ox 98 06/09/22 08:24 O2 Del Method 06/09/22 08:24 BMI result Body Mass Index 50.9 DS: Data Data Completed and Pending Pending studies at discharge: Pending at discharge 06/09/22 12:48 Surgical [PTH] Routine Labs on day of discharge: Laboratory Results - last 24 hr 06/09/22 08:09 Urine Test NEGATIVE Discharge Plan Discharge Anticipated Discharge Date/Time: 06/10/22 10:53 Patient Disposition: Home, Self-Care Discharge Diagnosis: s/p sleeve gastrectomy Referrals: Physician,Unknown J [Primary Care Provider] - 1 Week Discharge Medications: Continued ProAir RespiClick 90 mcg/actuation aerosol powdr breath activated 2 inh inhalation Q4-6H PRN (Reason: shortness of breath or wheezing) 30 Days Qty: 1 6RF Advair HFA 45-21 mcg/actuation HFA aerosol inhaler 2 puff inhalation BID 30 Days Qty: 8 3RF Rx Instructions: administer with spacer sucralfate 100 mg/mL suspension 10 ml PO BID Qty: 400 2RF ondansetron HCl 4 mg tablet 4 mg PO Q6H PRN (Reason: nausea and vomiting) Qty: 20 0RF pantoprazole 40 mg tablet,delayed release (DR/EC) 40 mg PO DAILY Qty: 30 2RF Mirena 20 mcg/24 hours (7 yrs) 52 mg intrauterine device 1 device intrauterine ONCE Qty: 1 0RF Discontinued cholecalciferol (vitamin D3) 50 mcg (2,000 unit) capsule 50 mcg PO DAILY Qty: 30 6RF cyanocobalamin (vitamin B-12) 500 mcg tablet 500 mcg PO DAILY Qty: 30 6RF polyethylene glycol 3350 [Miralax] 17 gram powder in packet 17 g PO DAILY Qty: 14 0RF Discharge Orders: Discharge Order (Routine); Ordered 06/10/22 Ordered By: Ashely Lockhart Activity on Discharge: No heavy lifting Stand Alone Forms: Patient Portal Discharge page Care Plan Goals: weight loss Health Concerns: morbid obesity Plan of Treatment: No tub baths, sex or returning to work until discussed at first post op appointment. No exercise, alcohol, tobacco or illegal drug use. Continue to use incentive spirometer hourly while awake. Walk in home for 5- 10 minutes every 2 hours during the first week. Continue phase 1 diet today and start phase 2 diet tomorrow morning. Follow all instructions in the bariatric handbook and call with any questions. 1. Please call your doctor or come back to the emergency room should any new symptoms arise. 2. You will receive a courtesy call from [facility] 24-48 hours after discharge. 3. Activity: abstain from alcohol, practice limited stair climbing, no bending, no driving, no exercise, no illicit substances, no lifting, no sex, no tub bath, no work. 4. Diet: continue as discussed with bariatric team.. 5. Dressing Change/Wound Care: Do not change or remove surgical dressings unless they are wet or soiled. 6. Call your doctor if: - Your temperature exceeds 101.5 F - You experience excessive pain or swelling - You have an unexpected reaction to medication - You have excessive bleeding - You experience continued vomiting/nausea - Your incision begins to separate - Your incision shows signs of infection such as increased redness, swelling, excessive pain, heat, or drainage (light blood or clear fluid is normal) 7. General instructions: No lifting greater than 5 lbs for the next 4 weeks[address] driving within 24 hours of taking narcotic pain medications. If you do not move your bowels in the next 2 days, please take milk of magnesia over the counter. Please follow the post op diet and do not advance your diet until you are seen in the office in about 2 weeks. Please walk around your home every hour or two to prevent blood clots from forming in your legs. You do not need to wake from sleeping to walk. Please sleep in a bed or couch to prevent kinking at the hips and knees. Please take your incentive spirometer (your lung e marketing specialist) home with you and use it for the next few days to prevent pneumonias. You may shower, no hot tubs, baths or swimming pools. Please call the office with any questions or concerns such as increasing abdominal pain, fever, chills, shortness of breath, chest pain, leg pain or swelling, or redness or drainage from your incisions. Do not hesitate to contact the office with any questions at . The patient's medical history has been reviewed and they are considered low risk for post op DVT and therefore DVT prophylaxis is not considered necessary. Travel after surgery was reviewed. The patient has not disclosed any travel plans during the first 30 days after surgery and they have been advised that within the first 30 days after surgery any bus, plane, train or car travel over 2 hours in duration is contraindicated due to the possibility of developing blood clots from immobility. Any travel, needs to include periods of ambulation of 10 minutes in duration every 2 hours. The patient was instructed to discuss any plans for travel during this period with their bariatric surgeon. Assessment: stable post op sleeve gastrectomy
[2022-06-09 14:31] LABS: Anion Gap 14 (12-20); Blood Urea Nitrogen 9 mg/dL (9-16); Calcium 8.9 mg/dL (8.4-10.2); Carbon Dioxide 23 mmol/L (22-29); Chloride 106 mmol/L (96-108); Creatinine Clr Calc Pharmacy 139.9; Estimated Glomerular Filt Rate > 60; Glucose Random 106 mg/dL (60-115); Potassium 4.7 mmol/L (3.3-5.1); Sodium 138 mmol/L (135-145)
[2022-06-09 14:34] LABS: Hematocrit 39.2 % (37.0-47.0); Hemoglobin 12.9 g/dl (12.0-16.0)
[2022-06-09] MEDS: Famotidine/PF 20 MG/2 ML VIAL IVPUSH ×2 (14:53→20:19)
[2022-06-09] MEDS: ceFAZolin Sodium/Dextrose,Iso 2 GM/50 ML PIGGYBACK IV (17:17)
[2022-06-09] MEDS: ondansetron HCL 4 MG/2 ML VIAL IVPUSH (19:14)
[2022-06-09] MEDS: 0.9 % Sodium Chloride Flush 3 ML SYRINGE IVFLUSH ×2 (19:29→20:19)
[2022-06-09] MEDS: Metoprolol Tartrate 2.5 MG in 0.9 % Sodium Chloride 50 ML 210 MG IV (20:19)
[2022-06-10 01:42] VITALS: BP 141/80; PULSE 95
[2022-06-10] MEDS: ondansetron HCL 4 MG/2 ML VIAL IVPUSH (01:43)
[2022-06-10] MEDS: Metoprolol Tartrate 2.5 MG in 0.9 % Sodium Chloride 50 ML 210 MG IV ×2 (01:43→08:23)
[2022-06-10] MEDS: Lactated Ringers 1,000 ML 100 ML IVCONT (01:44)
[2022-06-10 03:16] VITALS: BP 140/82; PULSE 83; RESP 18; TEMP 36.7; O2SAT 97
[2022-06-10 06:37] LABS: MANUAL DIFF FLAG NO
[2022-06-10 06:39] LABS: Basophils Percent Auto 0.1 % (0-2); Hematocrit 37.9 % (37.0-47.0); Hemoglobin 12.6 g/dl (12.0-16.0); Imm Gran Abs Auto 0.06 X10*3/uL (0.00-0.03); Imm Gran Pct Auto 0.5 % (0.0-0.4); Lymphocytes Absolute Auto 0.8 X10*3/uL (1.2-4.9); Lymphocytes Percent Auto 6.7 % (20-40); Mean Corpuscular HGB Conc 33.2 g/dl (31.0-35.0); Mean Corpuscular Hemoglobin 27.4 pg (27.0-33.0); Mean Corpuscular Volume 82.4 fL (80.0-98.0); Mean Platelet Volume 8.7 fL (9.4-12.3); Monocytes Absolute Auto 0.4 X10*3/uL (0.1-1.2); Monocytes Percent Auto 2.9 % (2-11); Neutrophils Absolute Auto 10.7 x10*3/uL (2.0-8.3); Neutrophils Percent Auto 89.8 % (45-73); Platelet Count 323 X10*3/uL (160-400); Red Cell Distribution Width 14.3 % (11.0-16.0)
[2022-06-10 06:56] LABS: Anion Gap 14 (12-20); Blood Urea Nitrogen 8 mg/dL (9-16); Calcium 8.7 mg/dL (8.4-10.2); Carbon Dioxide 20 mmol/L (22-29); Chloride 108 mmol/L (96-108); Creatinine Clr Calc Pharmacy 157.3; Estimated Glomerular Filt Rate > 60; Glucose Random 105 mg/dL (60-115); Potassium 4.4 mmol/L (3.3-5.1); Sodium 138 mmol/L (135-145)
[2022-06-10 07:55] VITALS: BP 129/60; PULSE 82; RESP 17; TEMP 36.9; O2SAT 97
[2022-06-10] MEDS: Famotidine/PF 20 MG/2 ML VIAL IVPUSH (08:21)
--- NOTE | 2022-06-10 09:20 | MHC.CM.PN ---
This fiction writer met with patient for CM assessment. No services in the home prior to hospitalization. PCP Yamilet Calderon. Friend to transport @ d/c. Plan- home no services.
--- NOTE | 2022-06-10 11:41 | HO.POSTANES ---
Post Anesthesia Evaluation Post Anesthesia Evaluation Vital Signs: Vital Signs Temp Pulse Resp BP Pulse Ox O2 Del Method 06/10/22 07:55 98.5 F 82 17 129/60 97 Room Air 06/10/22 03:16 98.1 F 83 18 140/82 H 97 06/10/22 01:42 95 141/80 H Anesthesia: General Endotracheal-GETA Mental Status: Awake Pain Control: Satisfactory Nausea/Vomiting: None Hydration: Adequate Anesthesia-Related Issues: No Anes. Related Issues
== END 2022-06-10 11:50 | disposition home or self-care (01) | DRG 403 ==
LOC: HO.SSSA 10:55 → HO.S3 16:16
PROVIDERS: Nurse Practitioner; Physician Assistant; Physician Assistant Surgical; Admitting Provider Surgery; PCP Internal Medicine; Visit Provider Surgery
PROC: 0DB64Z3 Excision of Stomach, Percutaneous Endoscopic Approach, Vertical (ICD-10-PCS; CPT 43845; principal; 2022-06-09 10:20)
DX: E66.01 Morbid (severe) obesity due to excess calories (principal); K74.00 Hepatic fibrosis, unspecified; Q43.3 Congenital malformations of intestinal fixation; I10 Essential (primary) hypertension; K76.0 Fatty (change of) liver, not elsewhere classified; J45.909 Unspecified asthma, uncomplicated; K21.9 Gastro-esophageal reflux disease without esophagitis; Z20.822 Contact with and (suspected) exposure to COVID-19; Z68.43 Body mass index [BMI] 50.0-59.9, adult; Z97.5 Presence of (intrauterine) contraceptive device; Z79.51 Long term (current) use of inhaled steroids; Z79.899 Other long term (current) drug therapy
CPT/HCPCS: 36415; 80048; 80053; 80061; 81025; 83036; 83525; 84443; 85014; 85018; 85025; 85610; 85730; 86140; 86850; 86900; 86901; 87635; 88307; 88342; A4649; C9088; J0131; J0690; J1100; J1170; J2250; J2405; J2550; J2795; J3010

== ENCOUNTER → 2022-09-14 12:58 | Outpatient (BNVA) | payer OTHER, SELFPAY | PROVIDERS: PCP Internal Medicine; Visit Provider Physician Assistant | DX: E66.01 Morbid (severe) obesity due to excess calories (principal); Z98.84 Bariatric surgery status; Z68.41 Body mass index [BMI] 40.0-44.9, adult | CPT/HCPCS: 99212 ==

== ENCOUNTER → 2022-10-23 10:55 | Outpatient (BNVA) | payer OTHER, SELFPAY | PROVIDERS: PCP Internal Medicine; Visit Provider Physician Assistant | DX: E66.01 Morbid (severe) obesity due to excess calories (principal); R10.11 Right upper quadrant pain; K21.9 Gastro-esophageal reflux disease without esophagitis; Z68.39 Body mass index [BMI] 39.0-39.9, adult; Z90.49 Acquired absence of other specified parts of digestive tract; Z98.84 Bariatric surgery status | CPT/HCPCS: 99212 ==

== ENCOUNTER → 2022-12-23 15:55 | Outpatient (BNVA) | payer OTHER, SELFPAY | PROVIDERS: PCP Internal Medicine; Visit Provider Physician Assistant | DX: E66.9 Obesity, unspecified (principal); Z98.84 Bariatric surgery status; Z68.37 Body mass index [BMI] 37.0-37.9, adult | CPT/HCPCS: 99212 ==

== ENCOUNTER 2023-01-11 15:44 | Emergency (ER) | payer OTHER, SELFPAY ==
--- NOTE | ~2023-01-11 | XR_ITS ---
EXAMINATION: XR LUMBOSACRAL SPINE CLINICAL INFORMATION: Back pain COMPARISON: None available. TECHNIQUE: Three views of the lumbosacral spine. FINDINGS: Sagittal alignment is maintained. Vertebral body heights are maintained. No evidence of acute compression fractures. Multilevel disc degenerative changes, with anterior marginal osteophytes, more prominent at T12-L1, L1-L2. Multilevel facet degeneration. There are surgical clips in the upper abdomen. IUD projected over the pelvis. SI joints are intact. No abnormal soft tissue calcification. XR/XR lumbar spine 2-3V IMPRESSION: Lumbar spondylosis. Mild-moderate T12-L1 disc degeneration. No evidence of acute fracture.
[2023-01-11 15:56] VITALS: BP 128/85; PULSE 100; RESP 18; TEMP 36.7; O2SAT 99; BMI 33.3
--- NOTE | 2023-01-11 15:58 | ED.GENADULT ---
HPI - General Adult General Stated complaint: lower back pain Related Data Home Medications Medication Instructions Recorded Confirmed mv-mn-iron 22.5 mg-folic ac 400 tab PO DAILY 10/23/22 12/23/22 mcg-vit K 500 [id number] chew tablet (DEKAs Bariatric) Previous Rx's Medication Instructions Recorded albuterol sulfate 90 mcg/actuation 2 inh inhalation Q4-6H PRN 11/25/21 breath activated powder inhaler shortness of breath or wheezing 30 (ProAir RespiClick) days #1 ea calcium citrate 315 mg-vitamin D3 1 tab PO BID #60 tabs 09/14/22 5 mcg (200 unit) tablet (Calcium Citrate + D) fluticasone propionate 45 2 puff inhalation BID 30 days #8 11/09/22 mcg-salmeterol 21 mcg/actuation grams HFA inhaler (Advair HFA) inulin 2 gram chewable tablet 2 g PO BID #60 tabs 12/23/22 (Fiber Gummies) Allergies Allergy/AdvReac Type Severity Reaction Status Date / Time No Known Allergies Allergy Mild NKA Verified 12/23/22 15:59 COUNT INCLUDES THE [facility] Past Medical History Medical History (Updated 12/23/22 @ 16:29 by Ashely Lockhart PA-C) Amenorrhea, secondary Bacterial vaginosis control counseling Cervical cancer screening Chlamydia infection Daytime somnolence GERD (gastroesophageal reflux disease) H. pylori infection HTN (hypertension) Hypertension Menstrual periods irregular Moderate asthma Morbid obesity Obesity, morbid, BMI 50 or higher Potential exposure to STD Pre-op evaluation Well woman exam with routine gynecological exam Surgical History History of laparoscopic cholecystectomy Family History Family History Father Hypertension Glaucoma Mother Hypertension Asthma Son In good health Sister In good health Sister No problems noted. Brother No problems noted. Social History Social History Are you a primary director critical care to a significant other at home: No Do you presently have visiting nurse or other home services: No Alcohol intake: former Patient Tobacco Use Status: Former Tobacco user Quit Date: 04/27/22 Tobacco use type: Cigarette Cigarettes Per Day: 5 Course Course Course Narrative: RME - 32yo female presenting for lower back pain that started 2 weeks ago. Rylee denies trauma or injury. She denies associated urinary symptoms. Plan: pain management, XR Discharge Plan Discharge Prescriptions: No Action ProAir RespiClick 90 mcg/actuation aerosol powdr breath activated 2 inh inhalation Q4-6H PRN (Reason: shortness of breath or wheezing) 30 Days Qty: 1 6RF Advair HFA 45-21 mcg/actuation HFA aerosol inhaler 2 puff inhalation BID 30 Days Qty: 8 3RF Rx Instructions: administer with spacer DEKAs Bariatric 22.5 mg-400 mcg -500 mcg-10 mg tablet,chewable PO DAILY Fiber Gummies 2 gram tablet,chewable 2 g PO BID Qty: 60 11RF Mirena 20 mcg/24 hours (7 yrs) 52 mg intrauterine device 1 device intrauterine ONCE Qty: 1 0RF calcium citrate-vitamin D3 [Calcium Citrate + D] 315 mg-5 mcg (200 unit) tablet 1 tab PO BID Qty: 60 11RF
[2023-01-11] MEDS: Ketorolac Tromethamine 30 MG/ML VIAL IM (16:57)
--- NOTE | 2023-01-11 17:05 | PC.NURSE ---
PT MEDICATED PER NOV FOR 07/06 LOW BACK PAIN
--- NOTE | 2023-01-11 17:49 | ED.GENADULT ---
HPI - General Adult General Chief complaint: Back Pain/Injury Stated complaint: lower back pain Time Seen by Provider: 01/11/23 17:32 Source: patient Mode of arrival: ambulatory Limitations: no limitations History of Present Illness HPI narrative: 32 yold female presents to the ED for lower back pain radiaing down right leg for two weeeks without any trauma. patient denies any abdominal pain, nausea, vomitting, fever, chills, dysuria, or hematuria. Patient states back pain on movement. patient denies any urinay/bowel incontinence Related Data Home Medications Medication Instructions Recorded Confirmed mv-mn-iron 22.5 mg-folic ac 400 tab PO DAILY 10/23/22 12/23/22 mcg-vit K 500 [id number] chew tablet (DEKAs Bariatric) Previous Rx's Medication Instructions Recorded albuterol sulfate 90 mcg/actuation 2 inh inhalation Q4-6H PRN 11/25/21 breath activated powder inhaler shortness of breath or wheezing 30 (ProAir RespiClick) days #1 ea calcium citrate 315 mg-vitamin D3 1 tab PO BID #60 tabs 09/14/22 5 mcg (200 unit) tablet (Calcium Citrate + D) fluticasone propionate 45 2 puff inhalation BID 30 days #8 11/09/22 mcg-salmeterol 21 mcg/actuation grams HFA inhaler (Advair HFA) inulin 2 gram chewable tablet 2 g PO BID #60 tabs 12/23/22 (Fiber Gummies) ketorolac 10 mg tablet 10 mg PO QID PRN pain 5 days #20 01/11/23 tabs prednisone 20 mg tablet 40 mg PO DAILY 5 days #10 tabs 01/11/23 Allergies Allergy/AdvReac Type Severity Reaction Status Date / Time No Known Allergies Allergy Mild NKA Verified 12/23/22 15:59 Review of Systems Review of Systems: Lower back pain Yes all other systems are reviewed and are negative PMFSH Past Medical History Medical History (Updated 01/11/23 @ 19:05 by ALESSANDRA Kwan) Amenorrhea, secondary Bacterial vaginosis control counseling Cervical cancer screening Chlamydia infection Daytime somnolence GERD (gastroesophageal reflux disease) H. pylori infection HTN (hypertension) Hypertension Menstrual periods irregular Moderate asthma Morbid obesity Obesity, morbid, BMI 50 or higher Potential exposure to STD Pre-op evaluation Well woman exam with routine gynecological exam Surgical History History of laparoscopic cholecystectomy Family History Family History Father Hypertension Glaucoma Mother Hypertension Asthma Son In good health Sister In good health Sister No problems noted. Brother No problems noted. Social History Social History Are you a primary critical care unit nurse to a significant other at home: No Do you presently have visiting nurse or other home services: No Alcohol intake: former Patient Tobacco Use Status: Former Tobacco user Quit Date: 04/27/22 Tobacco use type: Cigarette Cigarettes Per Day: 5 Advance Directives: No Advance Directives Information Provided: No Physical Exam ED Vital Signs: Vital Signs - 24 hr 01/11/23 15:56 01/11/23 17:58 Temperature 98.0 F Pulse Rate 100 79 Respiratory Rate 18 16 Blood Pressure 128/85 108/81 Pulse Oximetry 99 96 Oxygen Delivery Method Room Air BMI result Body Mass Index 33.3 Const General: cooperative, healthy appearing, comfortable, no acute distress, well developed, alert, awake and Physically active Orientation/consciousness: oriented to person, oriented to place, oriented to time and patient oriented x3 HENMT Head: Yes normal to inspection, Yes No palpable skull fracture present, Yes normocephalic, Yes atraumatic and No abrasion Eyes General: appearance normal, both eyes and all related structures Neck Neck: Yes normal visual inspection, Yes full ROM, Yes no lymphadenopathy, Yes no meningeal signs, Yes trachea midline, Yes supple, No anterior neck swelling and No tender Chest Chest palpation & inspection: normal inspection of the chest and normal palpation of entire chest wall Resp Effort & Inspection: normal respiratory effort and able to speak in complete sentences Auscultation: clear to auscultation bilaterally Cardio Jugular venous distension: no JVD Heart sounds: S1 normal heart sound present and S2 normal heart sound present GI Inspection: Yes normal to inspection and No abdominal wall ecchymosis Palpation (GI): Soft to palpation, not firm, nontender, no guarding and not rigid General: No CVA tenderness and Yes no CVA tenderness Back/Spine/Pelvis Back: no CVA tenderness, No CVA tenderness and back tenderness (lumbar spine tenderness) Skin General skin exam: no rashes or lesions noted, elasticity normal and turgor normal Neuro General: oriented to person, oriented to place, oriented to time, patient oriented x3, gait normal, tone normal, moves all extremities, Normal light touch and pain sensation, no meningeal signs, no focal motor deficits, CN's II-XI intact bilaterally and normal sensation to monofilament Extrem General: Yes normal to inspection and Yes full ROM Psych Appearance: grossly normal, well kempt and not disheveled Course Course Course Narrative: 32 yold femae with back pain. Toradol and lumbar spine xray ordered Reevaluation(s) Reevaluation #1: Xray shows radiculopahty. negative for fractures. patient safe for dischage. Time: 18:48 Medications Administered Discontinued Medications Generic Name Dose Route Start Last Admin Trade Name Freq PRN Reason Stop Dose Admin Ketorolac Tromethamine 30 mg 01/11/23 16:00 01/11/23 16:57 Ketorolac Tromethamine 30 Mg/Ml Vial IM 01/11/23 16:01 30 mg ONCE ONE Administration Medical Decision Making Medical Decision Making [facility] Narrative: 32 yold female presents to the ED for back pain. Xray shows radiculpathy. patient feels better after pain meds. Not suspecting UTI, epidural abscess, caudina equina, osteomylitits, or fractures. Differential Diagnosis Differential Diagnoses: The differential diagnosis associated with the presentation includes (UTI, epidural abscess, caudina equina, osteomylitits, fractures) Admission/Observation Consideration of admission/observation: Escalation of care including admission/observation considered Radiology Impression Discussion of test interpretation with radiology: I have reviewed the radiologist's reading. Prescription Management I considered prescription management with: Pain Medication Discharge Plan Discharge Clinical Impression: Radiculopathy Patient Disposition: Home, Self-Care Instructions: Lumbar Radiculopathy (ED), Back Pain (ED) Additional Instructions: Regrese al servicio de urgencias de inmediato por cualquier dolor abdominal, n?useas, v?mitos, disuria, hematuria, fiebre, escalofr?os, incontinencia urinaria/intestinal, dolor de espalda intenso, par?lisis de las extremidades inferiores o cualquier otro s?ntoma preocupante. por favor dung un seguimiento con PCP. Prescriptions: New ketorolac 10 mg tablet 10 mg PO QID PRN (Reason: pain) 5 Days Qty: 20 0RF Rx Instructions: patient received toradol 30mg IM in the ED prednisone 20 mg tablet 40 mg PO DAILY 5 Days Qty: 10 0RF No Action ProAir RespiClick 90 mcg/actuation aerosol powdr breath activated 2 inh inhalation Q4-6H PRN (Reason: shortness of breath or wheezing) 30 Days Qty: 1 6RF Advair HFA 45-21 mcg/actuation HFA aerosol inhaler 2 puff inhalation BID 30 Days Qty: 8 3RF Rx Instructions: administer with spacer DEKAs Bariatric 22.5 mg-400 mcg -500 mcg-10 mg tablet,chewable PO DAILY Fiber Gummies 2 gram tablet,chewable 2 g PO BID Qty: 60 11RF Mirena 20 mcg/24 hours (7 yrs) 52 mg intrauterine device 1 device intrauterine ONCE Qty: 1 0RF calcium citrate-vitamin D3 [Calcium Citrate + D] 315 mg-5 mcg (200 unit) tablet 1 tab PO BID Qty: 60 11RF Stand Alone Forms: Work/School Release Interventions: ED Discharge Assessment Last Done: 01/11/23 19:18 Discharge Date/Time: 01/11/23 19:19 Print Language: [place]
[2023-01-11 17:58] VITALS: BP 108/81; PULSE 79; RESP 16; O2SAT 96
== END 2023-01-11 19:19 | disposition home or self-care (01) ==
PROVIDERS: Emergency Provider Emergency Medicine; PCP Internal Medicine
DX: M54.16 Radiculopathy, lumbar region (principal); M54.50 Low back pain, unspecified; I10 Essential (primary) hypertension
CPT/HCPCS: 72100; 96372; 99284; J1885

== ENCOUNTER → 2023-01-14 13:53 | Outpatient (BNVA) | payer OTHER, SELFPAY | PROVIDERS: PCP Internal Medicine; Visit Provider Dietitian, Registered | DX: E66.9 Obesity, unspecified (principal); Z68.36 Body mass index [BMI] 36.0-36.9, adult | CPT/HCPCS: 97803 ==

== ENCOUNTER 2023-03-02 09:37 | Outpatient (REF) | payer OTHER, SELFPAY ==
[2023-03-02 14:32] LABS: CT PCR NOT DETECTED (Not Detect.); NG PCR NOT DETECTED (Not Detect.)
[2023-03-03 12:36] LABS: BV Int Neg Control Negative (Negative); BV Int Pos Control Positive (Positive)
== END 2023-03-02 09:38 | disposition home or self-care (01) ==
LOC: HO.LNP 09:37
PROVIDERS: PCP Internal Medicine; Visit Provider Advanced Practice Midwife
DX: N89.8 Other specified noninflammatory disorders of vagina (principal); Z20.2 Contact with and (suspected) exposure to infections with a predominantly sexual mode of transmission
CPT/HCPCS: 0353U; 87480; 87510; 87660

== ENCOUNTER 2023-03-08 10:41 | Outpatient (REF) | payer OTHER, SELFPAY ==
[2023-03-08 11:02] LABS: MANUAL DIFF FLAG NO
[2023-03-08 11:58] LABS: Basophils Percent Auto 0.4 % (0-2); Eosinophils Absolute Auto 0.3 X10*3/uL (0.0-0.4); Eosinophils Percent Auto 5.4 % (0-4); Hematocrit 39.3 % (37.0-47.0); Imm Gran Abs Auto 0.02 X10*3/uL (0.00-0.03); Imm Gran Pct Auto 0.4 % (0.0-0.4); Lymphocytes Absolute Auto 1.9 X10*3/uL (1.2-4.9); Lymphocytes Percent Auto 34.6 % (20-40); Mean Corpuscular HGB Conc 33.1 g/dl (31.0-35.0); Mean Corpuscular Hemoglobin 28.6 pg (27.0-33.0); Mean Corpuscular Volume 86.6 fL (80.0-98.0); Mean Platelet Volume 9.2 fL (9.4-12.3); Monocytes Absolute Auto 0.3 X10*3/uL (0.1-1.2); Monocytes Percent Auto 6.1 % (2-11); Neutrophils Percent Auto 53.1 % (45-73); Platelet Count 278 X10*3/uL (160-400); Red Blood Count 4.54 X10*6/uL (4.20-5.50); Red Cell Distribution Width 13.6 % (11.0-16.0); White Blood Count 5.6 X10*3/uL (4.8-10.8)
[2023-03-08 12:12] LABS: Estimated Average Glucose 91 mg/dL; Hemoglobin A1C 100.9633 umol/L; Hemoglobin A1c % 4.8 %
[2023-03-08 12:44] LABS: Alanine Aminotransferase 10 U/L (0-31); Alkaline Phosphatase 45 U/L (39-117); Anion Gap 12 (12-20); Aspartate Amino Transferase 14 U/L (5-31); Bilirubin Total 0.8 mg/dL (0.0-1.0); Blood Urea Nitrogen 13 mg/dL (9-16); C Reactive Protein 0.12 mg/dL (< or = 0.50); Calcium 9.5 mg/dL (8.4-10.2); Carbon Dioxide 23 mmol/L (22-29); Chloride 110 mmol/L (96-108); Cholesterol 150 mg/dL; Estimated Glomerular Filt Rate > 60; Glucose Random 81 mg/dL (60-115); HDL Cholesterol 46 mg/dL; Iron 100 mcg/dL (30-160); LDL Cholesterol Calculated 93 mg/dl; Percent Iron Saturation 31 % (15-50); Potassium 4.6 mmol/L (3.3-5.1); Sodium 140 mmol/L (135-145); Total Iron Binding Capacity 318 mcg/dL (228-428); Total Protein 6.7 g/dL (6.5-8.0); Triglycerides 55 mg/dL; Unsaturated Iron Binding 218 ug/dL
[2023-03-08 13:15] LABS: Ferritin 24 ng/mL (10-122); Folate 16.7 ng/mL (> or = 4.0); Insulin 8 uU/mL (2-29); TSH reflex Free T4 1.28 uIU/mL (0.32-4.0); Vitamin B12 301 pg/mL (200-900); Vitamin D 25-OH Total 32.1 ng/mL (>30)
[2023-03-09 12:39] LABS: Calcium (PTHI) 9.2 mg/dL (8.6-10.2); PTHI 54 pg/mL (16-77)
[2023-03-13 00:14] LABS: Zinc 93 mcg/dL (60-130)
[2023-03-13 08:14] LABS: Vitamin B1 17 nmol/L (8-30)
[2023-03-15 01:37] LABS: Vitamin A 46 mcg/dL (38-98)
== END 2023-03-08 10:42 | disposition home or self-care (01) ==
LOC: HO.LAB 10:41
PROVIDERS: PCP Internal Medicine; Visit Provider Physician Assistant
DX: E66.9 Obesity, unspecified (principal); Z98.84 Bariatric surgery status
CPT/HCPCS: 36415; 80053; 80061; 82306; 82607; 82728; 82746; 83036; 83525; 83540; 83970; 84425; 84443; 84590; 84630; 85025; 86140

== ENCOUNTER 2023-07-30 10:52 | Outpatient (AMB) | payer OTHER, SELFPAY ==
[2023-07-30 10:53] VITALS: BP 112/86; PULSE 76; O2SAT 98; BMI 38.1
--- NOTE | 2023-07-30 10:53 | MHC.PC.OV ---
Vital Signs 07/30/23 10:53 Height 5 ft 5 in Weight 229 lb BMI 38.1 BP 112/86 Blood Pressure Location Lt brachial Position Sitting Pulse 76 Pulse Source Pulse Oximeter Pulse Oximetry (%) 98 Oxygen Delivery Method Room Air Intake Visit Reasons: PE Director Of Strategic Initiatives Required: Yes Director Of Strategic Initiatives Language: Optometric Technician Name: Swetha [id number] Information Interpreted: non-clinical & clinical Allergies No Known Allergies Allergy (Mild, Verified 07/30/23 10:54) NKA Tobacco use date assessed: 07/30/23 Dental Screening Dental Screen Date: 07/30/23 Did you have a dental visit in the last 12 months?: No Did you have a dental problem in the last 6 months where you did not have access to dental care?: No HPI HPI Comments History of Present Illness Details 33-year-old Mohawk speaking female new patient presents today to [facility] care, previous patient of Dr. Calderon last seen in February. Past medical history significant for hypertension, moderate asthma, GERD, obesity, s/p laparoscopic sleeve gastrectomy in May 2022. Patient presents today for physical exam. Patient denies chest pain, palpitations, shortness of breath and syncope. Patient requesting refill on fluticasone, and allergy medication Rx sent to pharmacy. Patient also reports dry itchy skin behind left ear lobe x1 month, states his using kamq-lna-[id number] lotion with no improvement. Will statin 1% hydrocortisone cream b.i.d. times 14 days for this. Pap smear: January 2022 eye exam: Referral Flu shot given, TD 2018 Labs reviewed from February. [facility] Medical History Morbid obesity HTN (hypertension) GERD (gastroesophageal reflux disease) Hypertension H. pylori infection Cervical cancer screening control counseling Bacterial vaginosis Chlamydia infection Pre-op evaluation Daytime somnolence Obesity, morbid, BMI 50 or higher Menstrual periods irregular Amenorrhea, secondary Well woman exam with routine gynecological exam Potential exposure to STD Moderate asthma Surgical History S/P laparoscopic sleeve gastrectomy History of laparoscopic cholecystectomy Family History (Updated 03/09/23 @ 11:00 by LOS Baez) Father Hypertension Glaucoma Mother Hypertension Asthma Alzheimer's disease Son In good health Sister In good health Sister No problems noted. Brother No problems noted. Social History Household Members: Children Housing: House Are you a primary hospice care consultant to a significant other at home: No Do you presently have visiting nurse or other home services: No Alcohol intake: current Alcohol intake frequency: holidays/special occasions only Patient Tobacco Use Status: Current everyday Tobacco user Tobacco use type: Cigarette Cigarettes Per Day: 5 e-Cigarette/Vaping Use: Never Used service: No Current occupational status: employed Cognitive needs: No Hearing needs: No Vision needs: No Female Reproductive History Menstrual Age of Menarche: 11 Questionnaire PHQ-9 Over the last 2 weeks, how often have you been bothered by any of the following problems? 1. Little interest or pleasure in doing things: not at all 2. Feeling down, depressed, or hopeless: nearly every day 3. Trouble falling or staying asleep, or sleeping too much: more than half the days 4. Feeling tired or having little energy: more than half the days 5. Poor appetite or overeating: not at all 6. Feeling bad about yourself - or that you are a failure or have let yourself or your family down: not at all 7. Trouble concentrating on things, such as reading the newspaper or watching television: not at all 8. Moving or speaking so slowly that other people could have noticed. Or the opposite - being so fidgety or restless that you have been moving around a lot more than usual: not at all 9. Thoughts that you would be better off or of hurting yourself in some way: not at all Total score: 7 Depression Screening Interpretation: Positive Depression Screening Follow-up: Other (will refer to counselor ) Depression Screening Done: Yes Source: Developed by Drs. Kirill Walsh, Stacy Mart, Josef Munroe and colleagues, with an educational марина from [employer]. Thrive Questionnaire Date Thrive assessed: 07/30/23 I am a: Patient What is your living situation today?: I have a steady place to live Within the past 12 months, did the food you bought not last and you didn't have the money to get more?: Never true Within the past 12 months, did you worry whether your food would run out before you got money to buy more?: Never true Do you have trouble paying for medicines?: No Do you have trouble getting transportation to medical appointments?: No Do you have trouble paying your heating and electricity bill?: No Do you have trouble taking care of your child, family member or friend?: No Do you have trouble with day-to-day activities such as bathing, preparing meals, shopping, managing finances, etc.?: No Are you currently unemployed and looking for a job?: No Are you interested in more education?: No Please select the resources that you would like help with: None Currently or been in a relationship where the following occur: no concerns reported AUDIT C Alcohol Use Questionnaire (AUDIT-C) 1. How often do you have a drink containing alcohol?: Monthly or less 2. How many drinks containing alcohol do you have on a typical day when you are drinking?: 1 or 2 3. How often do you have six or more drinks on one occasion?: Never Total Score: 1 NAYLA-7 AMB Questionnaire NAYLA-7 Date NAYLA - 7 assessed: 07/30/23 Feeling nervous, anxious, or on edge: 1 = Several days Not being able to stop or control worryin = Several days Worrying too much about different things: 1 = Several days Trouble relaxin = Several days Being so restless that it is hard to sit still: 1 = Several days Becoming easily annoyed or irritable: 1 = Several days Feeling afraid as if something awful might happen: 3 = Nearly every day Total NAYLA-7 score (0-4 normal; 5-9 mild; 10-14 moderate; 15-21 severe): 9 Source: Developed by Drs. Kirill Walsh, Stacy Mart, Josef Munroe and colleagues, with an educational марина from [employer]. NAYLA-7 Assessment Billing NAYLA-7 Assessment Tool: NAYLA-7 Assessment 10509 Review of Systems Const Denies chills, Denies fatigue, Denies fever(s) and Denies poor appetite Eyes Denies no additional complaints ENT Reports Normal hearing present Card Denies chest pain, Denies syncope, Denies rapid heart rate and Denies dyspnea Resp Denies cough and Denies dyspnea GI Denies change in stool character, Denies constipation, Denies diarrhea, Denies nausea and Denies vomiting Denies urinary frequency, Denies dysuria and Denies urinary urgency Neuro Reports Normal hearing present, Denies confusion and Denies syncope Psych Denies confusion Endo Denies fatigue Physical exam (Primary Care) Vital Signs: Last Vital Signs Pulse 76 07/30/23 10:53 BP 112/86 07/30/23 10:53 Pulse Ox 98 07/30/23 10:53 Oxygen Delivery Method Room Air 07/30/23 10:53 BMI result Body Mass Index 38.1 Tobacco/Smoking Status: Tobacco use Status Tobacco use date assessed 07/30/23 07/30/23 10:58 Patient Tobacco Use Status Current everyday Tobacco 07/30/23 10:58 Tobacco use type Cigarette 07/30/23 10:58 e-Cigarette/Vaping Use Never Used 07/30/23 10:58 PHQ-9: PHQ-9 Score PHQ-9: Total score 7 07/30/23 11:14 Depression Screening Interpretation: Positive Depression Screening Follow-up: Other (will refer to counselor ) Thrive Assessment: Date of Thrive Assessment Date Thrive assessed 07/30/23 07/30/23 10:58 Currently or been in a relationship where the following occur: no concerns reported Const General: No confusion Orientation/consciousness: No confusion HENMT Head: Yes normocephalic and Yes atraumatic Ears: external ears normal and TM's normal bilaterally General nose exam: Normal external nose present and Normal nasal mucous membranes and turbinates present Face and sinus: Yes normal facial exam and Yes sinuses nontender Mouth: moist mucous membranes Throat: Yes tonsils normal Eyes Conjunctivae: conjunctivae normal Sclerae: sclerae normal Pupils: Equal, round and reactive pupils present and Pupils normal by confrontation EOM: EOMs intact bilaterally Direct Ophthalmoscopy: normal light reflex Neck Neck: Yes no lymphadenopathy and Yes supple Thyroid: Thyroid normal Chest Chest palpation & inspection: normal inspection of the chest Resp Effort & Inspection: normal respiratory effort Auscultation: clear to auscultation bilaterally, no crackles, no rhonchi and no wheezes Cardio Rate: regular rate Rhythm: regular rhythm Peripheral pulses: radial pulses present and dorsalis pedis present GI Inspection: Yes normal to inspection Palpation (GI): Soft to palpation, nontender and No hepatosplenomegaly present Auscultation: normoactive bowel sounds Skin General skin exam: no rashes or lesions noted Neuro General: No confusion Cranial nerves: Yes Equal, round and reactive pupils present and Yes Normal hearing present Cognition (Neuro): normal cognition Gait exam (Neuro): Normal gait present Motor exam (neuro): 5/5 motor strength present throughout Deep tendon reflexes (DTR's): Right brachioradialis reflex intensity grade: 2+, Left brachioradialis reflex intensity grade: 2+, Right patellar reflex intensity grade: 2+ and Left patellar reflex intensity grade: 2+ Extrem General: No edema Office Procedures Flu Questionnaire Does the patient have a severe egg allergy?: No Does the patient have severe life threatening allergies?: No Does the patient have a fever or illness today?: No Has the patient ever had Guillain-Humptulips Syndrome?: No Has the patient ever had any past reaction to a flu shot?: No Immunizations flu vacc [id number] 6mos up(PF) 60 mcg(15 mcgx4)/0.5 mL IM syringe Performing Provider: LOS Baez [facility] Administered by: ROSEMARY Mejia on 07/30/23 11:06 Dose Route Admin Location Dispensed Lot Number Expiration Date NDC Restrooms Or Lounges Maid 0.5 mL IM Left Deltoid 0.5 mL [id number] 03/26/24 [id number] [employer] VIS Given Date VIS Provided VIS Publication Date 07/30/23 Single Vaccine 21 Eligibility Eligibility Date Funding Source Not [facility] Eligible 07/30/23 Private Assessment and Plan Assessment & Plan (1) Moderate asthma: Comment: has rescue inhaler-well controlled at this time Code(s): J45.909 - Unspecified asthma, uncomplicated Plan: Continue on Advair, albuterol rescue inhaler. (2) GERD (gastroesophageal reflux disease): Code(s): K21.9 - Gastro-esophageal reflux disease without esophagitis Plan: Avoid the foods that cause that, usually spicy foods, tomato products, juices, coffee, soda and foods that you're sensitive to.? After eating do not lie down, allow 3-4 hours before lying down. And keep the head of the bed above 30 degrees to avoid the acid from going up. (3) Physical exam, annual: Code(s): Z00.00 - Encounter for general adult medical examination without abnormal findings Plan: Follow-up in 1 year. (4) Acute dermatitis: Comment: behind left ear Code(s): L30.9 - Dermatitis, unspecified Plan: 1% hydrocortisone cream b.i.d. sent to patient's pharmacy. Patient advised to follow up if no improvement. Plan Follow-up in 1 year or sooner if needed. Orders: Orders Influenza [id number] Immunization Today Z23 - Encounter for immunization Medications: New hydrocortisone 1% (Anti-Itch (hydrocortisone)) apply twice daily x 2 weeks then stop. 1 appl topical BID 28.35 grams 0RF skin irritation L30.9 - Dermatitis, unspecified Refilled fluticasone propion-salmeterol 45-21 mcg/actuation (Advair HFA) administer with spacer 2 puffs inhalation BID 30 days 8 grams 3RF albuterol sulfate 90 mcg/actuation (ProAir RespiClick) 2 inhalations inhalation Q4-6H 30 days PRN 1 ea 6RF shortness of breath or wheezing ibuprofen 600 mg PO Q8H PRN 20 tabs 0RF pain loratadine 10 mg PO DAILY 30 tabs 0RF J30.2 - Other seasonal allergic rhinitis Coding Level of Care Code Est Pt Prev Care 18-39y(90644) Diagnoses Moderate asthma J45.909 GERD (gastroesophageal reflux disease) K21.9 Physical exam, annual Z00.00 Acute dermatitis L30.9 Additional Codes NAYLA-7 Assessment Billing - NAYLA-7 Assessment Tool: NAYLA-7 Assessment 06143 ([id number])
== END 2023-07-30 11:22 | disposition home or self-care (01) ==
PROVIDERS: PCP Internal Medicine; Visit Provider Nurse Practitioner Family
DX: Z00.00 Encounter for general adult medical examination without abnormal findings (principal); J45.909 Unspecified asthma, uncomplicated; K21.9 Gastro-esophageal reflux disease without esophagitis; L30.9 Dermatitis, unspecified; Z23 Encounter for immunization
CPT/HCPCS: 90471; 90686; 99395

== ENCOUNTER 2023-08-12 10:54 | Outpatient (REF) | payer OTHER, SELFPAY ==
[2023-08-12 15:50] LABS: CT PCR NOT DETECTED (Not Detect.); NG PCR NOT DETECTED (Not Detect.)
[2023-08-13 08:57] LABS: BV Int Neg Control Negative (Negative); BV Int Pos Control Positive (Positive)
== END 2023-08-12 10:55 | disposition home or self-care (01) ==
LOC: HO.LNP 10:54
PROVIDERS: PCP Internal Medicine; Visit Provider Advanced Practice Midwife
DX: Z30.432 Encounter for removal of intrauterine contraceptive device (principal); Z20.2 Contact with and (suspected) exposure to infections with a predominantly sexual mode of transmission
CPT/HCPCS: 0353U; 58301; 81025; 87480; 87510; 87660

== ENCOUNTER 2023-08-12 10:54 | Outpatient (AMB) | payer OTHER, SELFPAY ==
--- NOTE | 2023-08-12 11:07 | MHC.OFFVIS ---
Intake Vital Signs 08/12/23 11:13 Height 5 ft 5 in Weight 232 lb BMI 38.6 Intake Visit Reasons: mirena removal Intake Note: would like to remove IUD because she would like to have another child and also things that she is thinking Police Superintendent Required: Yes Police Superintendent Language: Fijian Information Interpreted: non-clinical & clinical Office Messenger Helper: Office Messenger Helper Present (Aidyn) Allergies No Known Allergies Allergy (Mild, Verified 08/12/23 11:14) NKA Medication List - Last Reconciled 08/12/23 by Sharee Walker CNM albuterol sulfate 90 mcg/actuation (Ventolin HFA) 2 puffs inhalation Q4-6H PRN calcium citrate-vitamin D3 315 mg-5 mcg (200 unit) (Calcium Citrate + D) 1 tab PO BID fluticasone propion-salmeterol 45-21 mcg/actuation (Advair HFA) 2 puffs inhalation BID 30 days hydrocortisone 1% (Anti-Itch (hydrocortisone)) 1 appl topical BID ibuprofen 600 mg PO Q8H PRN loratadine 10 mg PO DAILY [id number] 22.5 mg-400 mcg -500 mcg-10 mg (DEKAs Bariatric) tabs PO DAILY Is last menstrual period known: Yes Last menstrual period: 08/02/23 Post menopausal: No HPI mirena removal HPI Details Patient is here because she wants to get the Mirena removed she would like to have a baby and also this is a good time for her to take it out. 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 She has no other concerns she says she is still overall losing weight after her bariatric surgery. she was not worried about STDs, but since I was going to be doing a speculum and exam she asked for cultures to check just in case PFSH Medical History Morbid obesity HTN (hypertension) GERD (gastroesophageal reflux disease) Hypertension H. pylori infection Cervical cancer screening control counseling Bacterial vaginosis Chlamydia infection Pre-op evaluation Daytime somnolence Obesity, morbid, BMI 50 or higher Menstrual periods irregular Amenorrhea, secondary Well woman exam with routine gynecological exam Potential exposure to STD Moderate asthma Surgical History S/P laparoscopic sleeve gastrectomy History of laparoscopic cholecystectomy Family History (Updated 03/09/23 @ 11:00 by LOS Baez) Father Hypertension Glaucoma Mother Hypertension Asthma Alzheimer's disease Son In good health Sister In good health Sister No problems noted. Brother No problems noted. Social History Household Members: Children Housing: House Are you a primary nursing care attendant to a significant other at home: No Do you presently have visiting nurse or other home services: No Alcohol intake: current Alcohol intake frequency: holidays/special occasions only Patient Tobacco Use Status: Current everyday Tobacco user Tobacco use type: Cigarette Cigarettes Per Day: 5 e-Cigarette/Vaping Use: Never Used service: No Current occupational status: employed Cognitive needs: No Hearing needs: No Vision needs: No Female Reproductive History Menstrual Age of Menarche: 11 Duration of menses: 6-7 days Date of last menstrual period: 08/02/23 control method: progestin IUCD Total pregnancies: 1 Full term: 1 Number of Living Children: 1 Date of last pap smear: 02/09/22 (negative) History of abnormal pap smear: No Physical Exam Vital Signs: BMI result Body Mass Index 38.6 External Female Exam: normal external appearance and normal appearance of the urethra Speculum Exam - Vagina: normal appearance of the vagina and normal vaginal discharge Speculum Exam - Cervix: normal appearance of the cervix (Fairly normal appearing mucus Mirena strings visible strings grasped and re) and Cervical os closed Office Procedures IUD Insert/Removal Details Details: ---Patient is here for her IUD removal . .. I did offer the patient testing for STIs and she thought about it and decided to have them done though she is not worried. The IUD strings were grasped with ring forceps, and as patient coughed the IUD was removed easily with 1 tug. [id number] Removal Procedure code (CPT) selection complete Results AMB Test Urine AMB Test Urine Negative Last Edit by ROSEMARY Hammond on 08/12/23 11:21 Results Reviewed Results Reviewed: Name: Joyce Carvajal Age/Sex: 31/F Attending: Ashely Lockhart PA-C : 1990 Submitted by: Sharee Walker CNM Copies to: Ashely Lockhart PA-C MR #: [id number] Gale Dickey MD Status: DEP REF Collected: 12/29/21 Location: .LAB Received: 12/30/21 Interpretation Unsatisfactory Scant cellularity. HPV mRNA E6/E7: NOT DETECTED This assay detects E6/E7 viral messenger RNA (mRNA) from 14 high-risk HPV types (16, 18, 31, 33, 35, 39, 45, 51, 52, 56, 58, 59, 66, 68) HPV testing performed by [facility], [place], [place]. See reference laboratory pion of the EMR for entire report. Clinical Information LMP:10/10/21 Previous PAP test:2013,WNL Material Received ThinPrep-Cervical Copies To Ashely Lockhart PA-C [address] [place] [address] [place] [address] Sharee Walker CNM [address] [place] [address] Gale Dickey MD [address] [place] [id number] Electronically Signed By: GARRICK Thayer (ASCP) 01/13/22 5421 Patient: Joyce Carvajal Age/Sex: 31/F MR#: [id number] Page 1 of 2 Gynecologic Cytology [id number] The Pap Test is a screening procedure with the inherent possibility of both false negative and false positive results. Results should be interpreted in the context of historic and current clinical findings. Reliability of the Pap Test is enhanced by performing the test on a regular repetitive basis. Patient: Joyce Carvajal Age/Sex: 31/F MR#: [id number] e: Joyce Carvajal Age/Sex: 31/F Attending: Sharee Walker CNM : 1990 Submitted by: Sharee Walker CNM Copies to: Gale Dickey MD MR #: [id number] Status: DEP REF Collected: 02/06/22 Location: .LAB Received: 02/09/22 Interpretation Satisfactory for evaluation. Blood. Negative for intraepithelial lesion or malignancy. Clinical Information LMP: 01/2022 Previous PAP test: Unknown Date, WNL Material Received ThinPrep Cervical Copies To Sharee Walker CNM [address] [place] [address] [address]. [address] [address] Gale Dickey MD [address] [place] [address] [address] [place] [id number] Electronically Signed By: GARRICK Thayer (ASCP) 02/19/22 1231 The Pap Test is a screening procedure with the inherent possibility of both false negative and false positive results. Results should be interpreted in the context of historic and current clinical findings. Reliability of the Pap Test is enhanced by performing the test on a regular repetitive basis. Patient: Joyce Carvajal Age/[facility]: 31[id number] MR#: [id number] Page 1 of 1 Also negative HIV hepatitis B hepatitis C and syphilis in December of 2021. Assessment & Plan Assessment & Plan (1) Encounter for IUD removal: Comment: Pham IU S removed at her request today 08/12/2023. Code(s): Z30.432 - Encounter for removal of intrauterine contraceptive device Plan Reviewed her recent Paps reviewed previous HIV and hep B and syphilis labs in chart which were negative she excepted testing for GC chlamydia trich today but was not really worried and declined blood work testing. I wished her well with her continued efforts to lose weight for her own health. And I also wished her well in the hard work she is doing caring for her mother which is very valuable. Orders: Orders AMB HCG Urine Test Today Z32.02 - Encounter for test, result negative AMB IUD Insertion/Removal - Patient Supply Today Z30.432 - Encounter for removal of intrauterine contraceptive device Coding Level of Care Code Est Pt Level 3 (52239) Diagnoses Encounter for IUD removal Z30.432 CPT Codes Details - CPT: 95281-MFQ Removal ([id number])
[2023-08-12 11:13] VITALS: BMI 38.6
== END 2023-08-12 11:39 | disposition home or self-care (01) ==
LOC: HO.HWS 10:54
PROVIDERS: PCP Internal Medicine; Visit Provider Advanced Practice Midwife
DX: Z30.432 Encounter for removal of intrauterine contraceptive device (principal); Z32.02 Encounter for pregnancy test, result negative
CPT/HCPCS: 58301

== ENCOUNTER 2023-12-20 09:12 | Emergency (ER) | payer OTHER, SELFPAY ==
[2023-12-20 09:22] VITALS: BP 129/80; PULSE 81; RESP 18; TEMP 36.4; O2SAT 100; BMI 38.9
--- NOTE | 2023-12-20 09:50 | ED_ITS ---
HPI - General Adult General Chief complaint: General Medical Stated complaint: rash stuffy nose Time Seen by Provider: 12/20/23 09:28 Source: patient and saddle cutter Mode of arrival: ambulatory Limitations: language barrier History of Present Illness HPI narrative: Patient is a 33-year-old [place]an-speaking female presenting to the emergency department with complaint of pruritic rash to the back of her neck for the past month as well as swelling to right nare for the past 2 months. She states that she was prescribed a cream by her PCP for the rash which did not improve her symptoms. She is unsure which cream this was. Also states she has been using [id number] sinus medication for her nasal congestion without improvement. Denies fevers. Denies sinus pain. MD complaint: Rash, congestion Onset (ago): month(s) Location: neck Relieving factors: none Associated symptoms: denies other symptoms Treatments prior to arrival: other Related Data Home Medications Medication Instructions Recorded Confirmed mv-mn-iron 22.5 mg-folic ac 400 tab PO DAILY 10/23/22 08/12/23 mcg-vit K 500 [id number] chew tablet (DEKAs Bariatric) Previous Rx's Medication Instructions Recorded calcium citrate 315 mg-vitamin D3 1 tab PO BID #60 tabs 09/14/22 5 mcg (200 unit) tablet (Calcium Citrate + D) fluticasone propionate 45 2 puff inhalation BID 30 days #8 07/30/23 mcg-salmeterol 21 mcg/actuation grams HFA inhaler (Advair HFA) hydrocortisone 1 % topical cream 1 appl topical BID skin irritation 07/30/23 (Anti-Itch (hydrocortisone)) #28.35 grams ibuprofen 600 mg tablet 600 mg PO Q8H PRN pain #20 tabs 07/30/23 loratadine 10 mg tablet 10 mg PO DAILY #30 tabs 08/06/23 albuterol sulfate 90 mcg/actuation 2 puff inhalation Q4-6H PRN 11/01/23 aerosol inhaler (Ventolin HFA) shortness of breath or wheezing #8.5 grams azithromycin 250 mg tablet See Rx Instructions PO .COMPLEX #6 12/20/23 tabs clotrimazole 1 % topical cream 1 appl topical BID 4 weeks #15 12/20/23 (Antifungal (clotrimazole)) grams fluticasone propionate 50 2 spray intranasal DAILY #16 grams 12/20/23 mcg/actuation nasal spray,suspension Allergies Allergy/AdvReac Type Severity Reaction Status Date / Time No Known Allergies Allergy Mild NKA Verified 08/12/23 11:14 Review of Systems Review of Systems: As per HPI. Yes all other systems are reviewed and are negative Constitutional: Constitutional: Reports as per HPI [facility] Past Medical History Medical History Morbid obesity HTN (hypertension) GERD (gastroesophageal reflux disease) Hypertension H. pylori infection Cervical cancer screening control counseling Bacterial vaginosis Chlamydia infection Pre-op evaluation Daytime somnolence Obesity, morbid, BMI 50 or higher Menstrual periods irregular Amenorrhea, secondary Well woman exam with routine gynecological exam Potential exposure to STD Moderate asthma Surgical History S/P laparoscopic sleeve gastrectomy History of laparoscopic cholecystectomy Family History Family History Father Hypertension Glaucoma Mother Hypertension Asthma Alzheimer's disease Son In good health Sister In good health Sister No problems noted. Brother No problems noted. Social History Social History Household Members: Children Housing: House Are you a primary critical care unit manager to a significant other at home: No Do you presently have visiting nurse or other home services: No Alcohol intake: current Alcohol intake frequency: holidays/special occasions only Patient Tobacco Use Status: Current everyday Tobacco user Tobacco use type: Cigarette Cigarettes Per Day: 5 e-Cigarette/Vaping Use: Never Used Advance Directives: No Advance Directives Information Provided: No service: No Current occupational status: employed Cognitive needs: No Hearing needs: No Vision needs: No Physical Exam ED Vital Signs: Vital Signs - 24 hr 12/20/23 09:22 Temperature 97.5 F Pulse Rate 81 Respiratory Rate 18 Blood Pressure 129/80 Pulse Oximetry 100 Oxygen Delivery Method Room Air BMI result Body Mass Index 38.9 Vital signs have been reviewed and appear to be correct. Blood pressure normal. Heart rate normal. Respiratory rate normal. Temperature normal. Oxygen saturation normal. Const General: cooperative, healthy appearing and no acute distress Orientation/consciousness: oriented to person, oriented to place, oriented to time and patient oriented x3 Limitations: no limitations HENMT Head: Yes normocephalic and Yes atraumatic Ears: external ears normal General nose exam: Normal external nose present, Normal septum present, Nasal discharge present purulent on the right and Nasal polyp present on the right Face and sinus: Yes sinuses nontender and Yes face symmetric Mouth: oropharynx normal and moist mucous membranes Throat: Yes uvula midline Eyes Pupils: Equal, round and reactive pupils present Neck Neck: Yes normal visual inspection and Yes supple Resp Effort & Inspection: normal respiratory effort and able to speak in complete sentences Auscultation: clear to auscultation bilaterally Cardio Rate: regular rate Rhythm: regular rhythm Heart sounds: S1 normal heart sound present and S2 normal heart sound present GI Palpation (GI): Soft to palpation and nontender Auscultation: normoactive bowel sounds General: Yes no CVA tenderness Back/Spine/Pelvis Back: no CVA tenderness Skin Other: erythematous scaly patch approx 4x6cm to posterior neck without surrounding erythema or warmth General skin exam: elasticity normal and turgor normal Neuro General: oriented to person, oriented to place, oriented to time, patient oriented x3, moves all extremities, no focal motor deficits and CN's II-XI intact bilaterally Cranial nerves: Yes Equal, round and reactive pupils present Cognition (Neuro): normal cognition Extrem General: Yes full ROM, Yes no pedal edema and Yes no calf tenderness Psych Mental Status: mental status grossly normal Affect: normal affect Thought process: Normal thought process present Medical Decision Making Medical Decision Making MDM Narrative: Patient is a 33-year-old [place]an-speaking female presenting to the emergency department with complaint of pruritic rash to the back of her neck for the past month as well as swelling to right nare for the past 2 months. On exam patient is awake, A+Ox3, VS WNL, afebrile, normal neurological exam without focal deficits, physical exam findings as above. Given reported symptoms and physical exam findings, initial differential includes nasal polyp, sinusitis, contact dermatitis, tinea corporis, eczema. Review of EMR shows patient's rash was previously treated with hydrocortisone cream. Will treat with clotrimazole cream for tinea and refer to dermatology. Will prescribe Flonase and course of azithromycin, refer to ENT. All prescriptions, return precautions, and plan of care discussed with patient at bedside via saddle cutter and patient verbalized understanding of and agreement with plan. Differential Diagnosis Differential Diagnoses: The differential diagnosis associated with the presentation includes As per MDM. External Record Review External record reviewed: Inpatient record, Office record and Outpatient record Prescription Management I considered prescription management with: Antibiotic and Other Discharge Plan Discharge Clinical Impression: Nasal polyp, Sinusitis, Tinea corporis Patient Disposition: Home, Self-Care Instructions: Tinea Corporis (ED), Rhinosinusitis (DC), Nasal Polyps (ED), Nasal Polypectomy (DC), Nasal Endoscopy (DC) Additional Instructions: You were evaluated in the emergency department for congestion and swelling to the right side of your nose. You are being treated with an antibiotic and nasal spray and being referred to an Ear, Nose, and Throat specialist. Please call their office to schedule an appointment. You are being treated for a tinea infection on your neck, please use the cream as prescribed. Follow-up with your primary care provider this week. Return to the emergency department with any new or concerning symptoms. Prescriptions: New clotrimazole [Antifungal (clotrimazole)] 1 % cream 1 appl topical BID 28 Days Qty: 15 0RF fluticasone propionate 50 mcg/actuation spray,suspension 2 spray intranasal DAILY Qty: 16 0RF Rx Instructions: administer into each nostril azithromycin 250 mg tablet See Rx Instructions .ROUTE .COMPLEX Qty: 6 0RF Rx Instructions: For 250 mg dose pack: take 500 mg today (day 1), then 250 mg for 4 days (days 2-5) No Action loratadine 10 mg tablet 10 mg PO DAILY Qty: 30 3RF albuterol sulfate [Ventolin HFA] 90 mcg/actuation HFA aerosol inhaler 2 puff inhalation Q4-6H PRN (Reason: shortness of breath or wheezing) Qty: 8.5 0RF ibuprofen 600 mg tablet 600 mg PO Q8H PRN (Reason: pain) Qty: 20 0RF hydrocortisone [Anti-Itch (HC)] 1 % cream 1 appl topical BID Qty: 28.35 0RF Rx Instructions: apply twice daily x 2 weeks then stop. fluticasone propion-salmeterol [Advair HFA] 45-21 mcg/actuation HFA aerosol inhaler 2 puff inhalation BID 30 Days Qty: 8 3RF Rx Instructions: administer with spacer DEKAs Bariatric 22.5 mg-400 mcg -500 mcg-10 mg tablet,chewable PO DAILY Mirena 20 mcg/24 hours (7 yrs) 52 mg intrauterine device 1 device intrauterine ONCE Qty: 1 0RF calcium citrate-vitamin D3 [Calcium Citrate + D] 315 mg-5 mcg (200 unit) tablet 1 tab PO BID Qty: 60 11RF Referrals: [facility] [Provider Group] [facility] [Provider Group] [facility] [Provider Group] Osmani Perez [Physician] -
[2023-12-20 10:20] VITALS: BP 118/76; PULSE 74; RESP 16; TEMP 36.6; O2SAT 99
== END 2023-12-20 10:21 | disposition home or self-care (01) ==
PROVIDERS: Emergency Provider Emergency Medicine; PCP Internal Medicine
DX: B35.4 Tinea corporis (principal); J33.9 Nasal polyp, unspecified; J32.9 Chronic sinusitis, unspecified; I10 Essential (primary) hypertension; J45.909 Unspecified asthma, uncomplicated
CPT/HCPCS: 99283

== ENCOUNTER 2024-03-23 10:01 | Outpatient (REF) | payer OTHER, SELFPAY ==
[2024-03-24 11:36] LABS: Bacterial Vaginosis PCR NEGATIVE (Negative); Candida Group PCR NOT DETECTED (Not Detect); Candida glab krusei PCR NOT DETECTED (Not Detect); Trichomonas vaginalis PCR NOT DETECTED (Not Detect)
[2024-03-24 13:35] LABS: CT PCR NOT DETECTED (Not Detect.); NG PCR NOT DETECTED (Not Detect.)
== END 2024-03-23 10:02 | disposition home or self-care (01) ==
LOC: HO.LAB 10:01
PROVIDERS: PCP Internal Medicine; Visit Provider Advanced Practice Midwife
DX: Z01.419 Encounter for gynecological examination (general) (routine) without abnormal findings (principal); N89.8 Other specified noninflammatory disorders of vagina; Z20.2 Contact with and (suspected) exposure to infections with a predominantly sexual mode of transmission
CPT/HCPCS: 0352U; 87491; 87591; 99395

== ENCOUNTER 2024-03-23 10:01 | Outpatient (AMB) | payer OTHER, SELFPAY ==
[2024-03-23 10:24] VITALS: BP 122/70; BMI 38.8
--- NOTE | 2024-03-23 10:24 | MHC.OFFVIS ---
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 Present Allergies No Known Allergies Allergy (Mild, Verified 03/23/24 10:26) NKA Medication List - Last Reconciled 03/23/24 by Sharee Walker CNM albuterol sulfate 90 mcg/actuation (Ventolin HFA) 2 puffs PO Q4-6H PRN 30 days calcium citrate-vitamin D3 315 mg-5 mcg (200 unit) (Calcium Citrate + D) 1 tab PO BID clotrimazole 1% (Antifungal (clotrimazole)) 1 appl topical BID 4 weeks fluticasone propion-salmeterol 45-21 mcg/actuation (Advair HFA) 2 puffs inhalation BID 30 days fluticasone propionate 50 mcg/actuation 2 sprays intranasal DAILY hydrocortisone 1% (Anti-Itch (hydrocortisone)) 1 appl topical BID ibuprofen 600 mg PO Q8H PRN loratadine 10 mg PO DAILY [id number] 22.5 mg-400 mcg -500 mcg-10 mg (DEKAs Bariatric) tabs PO DAILY Is last menstrual period known: Yes Last menstrual period: 02/28/24 Patient : No 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 She is open to her 1 child is 16 years old that she delivered in [place]. She did not know that the birthing center [facility] had closed and I did inform her of this. She does exercises at home on a little this she and tries to stay in shape. She has not exactly sure when she ovulates. [facility] Medical History (Updated 03/23/24 @ 11:10 by Sharee Walker CNM) Well woman exam with routine gynecological exam Morbid obesity HTN (hypertension) GERD (gastroesophageal reflux disease) Hypertension H. pylori infection Cervical cancer screening control counseling Bacterial vaginosis Chlamydia infection Pre-op evaluation Daytime somnolence Obesity, morbid, BMI 50 or higher Menstrual periods irregular Amenorrhea, secondary Potential exposure to STD Moderate asthma Surgical History S/P laparoscopic sleeve gastrectomy History of laparoscopic cholecystectomy Family History Father Hypertension Glaucoma Mother Hypertension Asthma Alzheimer's disease Son In good health Sister In good health Sister No problems noted. Brother No problems noted. Social History Household Members: Children Housing: House Are you a primary care director rn to a significant other at home: No Do you presently have visiting nurse or other home services: No Alcohol intake: current Alcohol intake frequency: holidays/special occasions only Patient Tobacco Use Status: Current everyday Tobacco user Tobacco use type: Cigarette Cigarettes Per Day: 5 e-Cigarette/Vaping Use: Never Used service: No Current occupational status: employed Cognitive needs: No Hearing needs: No Vision needs: No Female Reproductive History Menstrual Age of Menarche: 11 Date of last menstrual period: 02/28/24 control method: none Total pregnancies: 1 Full term: 1 Date of last pap smear: 02/09/22 (negative, previous pap unsatisfactory) History of abnormal pap smear: No Physical Exam Vital Signs: Last Vital Signs BP 122/70 03/23/24 10:24 BMI result Body Mass Index 38.8 Const General: healthy appearing, comfortable, no acute distress, well developed and alert Nutritional Appearance: average body habitus Orientation/consciousness: patient oriented x3 Limitations: no limitations HEENT Head: Yes normocephalic Neck Neck: Yes normal visual inspection Thyroid: Thyroid normal Chest Chest palpation & inspection: normal inspection of the chest Breast/axilla inspection: normal inspection of the breasts and normal inspection of the axillae Breast/axilla palpation: normal palpation of the breasts and normal palpation of the axillae Resp Effort & Inspection: normal respiratory effort GI Inspection: Yes normal to inspection, No Abdominal wall edema and No distended Palpation (GI): Soft to palpation and nontender Other: External exam within normal limits vagina pink and moist cervix multiparous pink with normal appearing discharge consistent with around midcycle. Uterus midposition mobile nontender adnexa nontender good tone with Kegel. General: Yes bladder normal to palpation External Female Exam: normal external appearance and normal appearance of the urethra Speculum Exam - Vagina: normal appearance of the vagina, normal palpation and normal vaginal discharge Speculum Exam - Cervix: normal appearance of the cervix, normal palpation and nontender Bimanual exam- vagina & uterus: normal bimanual exam, normal palpation, uterine size normal, bladder normal to palpation, consistency normal, normal palpation, uterine mobility normal, uterine shape normal, No Cervical tenderness present, non-tender and no cervical motion tenderness Bimanual Exam- Adnexa, other: normal adnexae, no masses, normal and No adnexal tenderness Neuro General: patient oriented x3 Assessment & Plan Assessment & Plan (1) Potential exposure to STD: Code(s): Z20.2 - Contact with and (suspected) exposure to infections with a predominantly sexual mode of transmission Category: Medical (2) Cervical cancer screening: Comment: 12/29/21 pap=unsatisfactory, hpv neg- --repeat-- repeat pap= neg/ neg HPV. Code(s): Z12.4 - Encounter for screening for malignant neoplasm of cervix Category: Medical (3) Patient desires : Code(s): Z31.9 - Encounter for procreative management, unspecified Category: Medical (4) Well woman exam with routine gynecological exam: Code(s): Z01.419 - Encounter for gynecological examination (general) (routine) without abnormal findings Category: Medical Plan -----Discussed in this visit the following: healthy balanced diet, regular and consistent exercise, getting recommended health screens, doing the best she can for her particular health concerns, kegel exercises, pap smear screening and followup recommendations, mammography screening and SBE, normal changes in cycles in her life stage--- . Discussed being in her best health if she is interested in being also shared that the birthing center was close since the beginning of the pandemic and that anyone with any complications such as somebody who might need increased surveillance in a over 35 would need to get all care at [facility]. She is taking multivitamins with folic acid so that is good. She will be awaiting referral for ENT evaluation of what ever is in her nasal cavity causing her to mouth breathe and be congested. Testing offered and a septic for blood work for STIs and she can do at her discretion. Orders: Orders Hepatitis C Antibody Today Z01.419 - Encounter for gynecological examination (general) (routine) without abnormal findings, Z12.4 - Encounter for screening for malignant neoplasm of cervix, Z20.2 - Contact with and (suspected) exposure to infections with a predominantly sexual mode of transmission, Z31.9 - Encounter for procreative management, unspecified Hepatitis B Surface Antigen Today Z01.419 - Encounter for gynecological examination (general) (routine) without abnormal findings, Z12.4 - Encounter for screening for malignant neoplasm of cervix, Z20.2 - Contact with and (suspected) exposure to infections with a predominantly sexual mode of transmission, Z31.9 - Encounter for procreative management, unspecified HIV Ab/Ag Today Z01.419 - Encounter for gynecological examination (general) (routine) without abnormal findings, Z12.4 - Encounter for screening for malignant neoplasm of cervix, Z20.2 - Contact with and (suspected) exposure to infections with a predominantly sexual mode of transmission, Z31.9 - Encounter for procreative management, unspecified Syphilis Screen Today Z01.419 - Encounter for gynecological examination (general) (routine) without abnormal findings, Z12.4 - Encounter for screening for malignant neoplasm of cervix, Z20.2 - Contact with and (suspected) exposure to infections with a predominantly sexual mode of transmission, Z31.9 - Encounter for procreative management, unspecified Coding Level of Care Code Est Pt Prev Care [id number]) Diagnoses Potential exposure to STD Z20.2 Cervical cancer screening Z12.4 Patient desires Z31.9 Well woman exam with routine gynecological exam Z01.419
== END 2024-03-23 11:08 | disposition home or self-care (01) ==
LOC: HO.HWSM 10:01
PROVIDERS: PCP Internal Medicine; Visit Provider Advanced Practice Midwife
DX: Z01.419 Encounter for gynecological examination (general) (routine) without abnormal findings (principal); Z20.2 Contact with and (suspected) exposure to infections with a predominantly sexual mode of transmission; Z12.4 Encounter for screening for malignant neoplasm of cervix; Z31.9 Encounter for procreative management, unspecified
CPT/HCPCS: 99395

== ENCOUNTER 2024-07-31 10:17 | Outpatient (AMB) | payer OTHER, SELFPAY ==
--- NOTE | 2024-07-31 10:21 | MHC.PC.OV ---
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 Accompanied by: Self / Same As Patient Allergies No Known Allergies Allergy (Mild, Verified 07/31/24 10:33) NKA Medication List - Last Reconciled 07/31/24 by Gale Howard MD albuterol sulfate 90 mcg/actuation (Ventolin HFA) 2 puffs PO Q4-6H PRN 30 days calcium citrate-vitamin D3 315 mg-5 mcg (200 unit) (Calcium Citrate + D) 1 tab PO BID clotrimazole 1% (Antifungal (clotrimazole)) 1 appl topical BID 4 weeks fluticasone propion-salmeterol 45-21 mcg/actuation (Advair HFA) 2 puffs inhalation BID 30 days fluticasone propionate 50 mcg/actuation 2 sprays intranasal DAILY hydrocortisone 1% (Anti-Itch (hydrocortisone)) 1 appl topical BID ibuprofen 600 mg PO Q8H PRN loratadine 10 mg PO DAILY [id number]-FA-vit [id number] 22.5 mg-400 mcg -500 mcg-10 mg (DEKAs Bariatric) tabs PO DAILY Tobacco use date assessed: 07/31/24 Dental Screening Dental Screen Date: 07/31/24 Did you have a dental visit in the last 12 months?: No Did you have a dental problem in the last 6 months where you did not have access to dental care?: No Was dental information given to patient?: Patient has dentist HPI HPI Comments History of Present Illness Details This is 34-year-old female with mild major depression that comes for her physical exam. She would like to go to counseling for her depression. Pap smear done 2021 was normal. She is a smoker and was advised to quit. She is obese with a BMI of 38.9 and was advised to do diet and exercise to reach BMI goal less than 30. She complains of nasal obstruction secondary to right nasal polyp that has been present for a year and would like to be refer urgently for ENT. [facility] Medical History Well woman exam with routine gynecological exam Morbid obesity HTN (hypertension) GERD (gastroesophageal reflux disease) Hypertension H. pylori infection Cervical cancer screening control counseling Bacterial vaginosis Chlamydia infection Pre-op evaluation Daytime somnolence Obesity, morbid, BMI 50 or higher Menstrual periods irregular Amenorrhea, secondary Potential exposure to STD Moderate asthma Surgical History S/P laparoscopic sleeve gastrectomy History of laparoscopic cholecystectomy Family History Father Hypertension Glaucoma Mother Hypertension Asthma Alzheimer's disease Son In good health Sister In good health Sister No problems noted. Brother No problems noted. Social History (Updated 07/31/24 @ 10:43 by Gale Howard MD) Household Members: Children Housing: House Are you a primary career professional to a significant other at home: No Do you presently have visiting nurse or other home services: No Alcohol intake: current Alcohol intake frequency: holidays/special occasions only Alcohol type: beer Patient Tobacco Use Status: Current everyday Tobacco user Tobacco use type: Cigarette Cigarettes Per Day: 5 e-Cigarette/Vaping Use: Never Used Second Hand Smoke Exposure: No service: No Current occupational status: employed Current occupational exposures/hazards: No Cognitive needs: No Hearing needs: No Vision needs: No Female Reproductive History Menstrual Age of Menarche: 11 Questionnaire PHQ-9 Over the last 2 weeks, how often have you been bothered by any of the following problems? 1. Little interest or pleasure in doing things: not at all 2. Feeling down, depressed, or hopeless: several days 3. Trouble falling or staying asleep, or sleeping too much: several days 4. Feeling tired or having little energy: nearly every day 5. Poor appetite or overeating: not at all 6. Feeling bad about yourself - or that you are a failure or have let yourself or your family down: not at all 7. Trouble concentrating on things, such as reading the newspaper or watching television: not at all 8. Moving or speaking so slowly that other people could have noticed. Or the opposite - being so fidgety or restless that you have been moving around a lot more than usual: not at all 9. 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 Kirill Walsh, Stacy Mart, Josef Munroe and colleagues, with an educational марина from [employer]. Thrive Questionnaire Date Thrive assessed: 07/31/24 I am a: Patient What is your living situation today?: I have a steady place to live Within the past 12 months, did the food you bought not last and you didn't have the money to get more?: Never true Within the past 12 months, did you worry whether your food would run out before you got money to buy more?: Never true Do you have trouble paying for medicines?: No Do you have trouble getting transportation to medical appointments?: No Do you have trouble paying your heating and electricity bill?: No Do you have trouble taking care of your child, family member or friend?: No Do you have trouble with day-to-day activities such as bathing, preparing meals, shopping, managing finances, etc.?: No Are you currently unemployed and looking for a job?: No Are you interested in more education?: No Please select the resources that you would like help with: None Currently or been in a relationship where the following occur: No concerns reported THRIVE Score: 0 AUDIT C Alcohol Use Questionnaire (AUDIT-C) 1. How often do you have a drink containing alcohol?: Monthly or less 2. How many drinks containing alcohol do you have on a typical day when you are drinking?: 3 or 4 3. How often do you have six or more drinks on one occasion?: Never Total Score: 2 Score Reviewed/Action Taken: No NAYLA-7 AMB Questionnaire NAYLA-7 Date NAYLA - 7 assessed: 07/31/24 Feeling nervous, anxious, or on edge: 0 = Not at all Not being able to stop or control worryin = Not at all Worrying too much about different things: 0 = Not at all Trouble relaxin = Not at all Being so restless that it is hard to sit still: 1 = Several days Becoming easily annoyed or irritable: 1 = Several days Feeling afraid as if something awful might happen: 1 = Several days Total NAYLA-7 score (0-4 normal; 5-9 mild; 10-14 moderate; 15-21 severe): 3 Source: Developed by Drs. Kirill Walsh, Stacy Mart, Josef Munroe and colleagues, with an educational марина from [employer]. NAYLA-7 Assessment Billing NAYLA-7 Assessment Tool: NAYLA-7 Assessment 47993 Review of Systems Const All systems reviewed & are unremarkable except as noted in HPI and below Card Denies chest pain at rest, Denies chest pain with activity, Denies edema, Denies irregular heart rhythm, Denies claudication, Denies dyspnea, Denies dyspnea on exertion, Denies orthopnea, Denies paroxysmal nocturnal dyspnea and Denies slow heart rate Resp Denies cough, Denies dyspnea and Denies dyspnea on exertion GI Denies abdominal pain, Denies change in bowel habits, Denies excessive flatus, Denies nausea and Denies vomiting Denies urinary incontinence, Denies urinary hesitancy and Denies urinary urgency Musc Denies abnormal gait, Denies atrophy, Denies deformity and Denies limited range of motion Skin/Breast Denies bleeding lesions, Denies changing lesions and Denies rash Neuro Denies abnormal gait, Denies behavioral changes and Denies lack of coordination Psych Denies behavioral changes Physical exam (Primary Care) Vital Signs: Last Vital Signs BP 122/80 07/31/24 10:22 BMI result Body Mass Index 38.9 BMI Assessment/Plan discussion: High BMI High, discussed plan: lifestyle, weight reduction, dietary, physical activity and alcohol moderation Tobacco/Smoking Status: Tobacco use Status Tobacco use date assessed 07/31/24 07/31/24 10:33 Patient Tobacco Use Status Current everyday Tobacco 07/31/24 10:43 Tobacco use type Cigarette 07/31/24 10:43 e-Cigarette/Vaping Use Never Used 07/31/24 10:43 Are you ready to quit: No Tobacco cessation counseling provided: Yes Items discussed: [employer]uitWorks Relapse Prevention: discussed the importance of a supportive environment, discussed negative mood or depression after quitting, weight gain after smoking is common and discussed dietary, exercise and/or lifestyle changes Number of minutes spent counselin CPT code: 76303 - 4-10 Minutes PHQ-9: PHQ-9 Score PHQ-9: Total score 5 07/31/24 11:02 Depression Screening Interpretation: Positive Depression Screening Follow-up: Existing condition, Community Mental Health Worker F/U and Follow-up Visit Requested Thrive Assessment: Date of Thrive Assessment Date Thrive assessed 07/31/24 07/31/24 10:33 Currently or been in a relationship where the following occur: No concerns reported [facility] Head: Yes normal to inspection, Yes normocephalic and Yes atraumatic Ears: external ears normal General nose exam: Nasal polyp present on the right Eyes General: appearance normal, both eyes and all related structures Eyelids: Yes eyelids normal Conjunctivae: conjunctivae normal Neck Neck: Yes normal visual inspection and Yes supple Resp Effort & Inspection: normal respiratory effort Auscultation: clear to auscultation bilaterally Cardio Jugular venous distension: no JVD Rate: regular rate Rhythm: regular rhythm Heart sounds: S1 normal heart sound present and S2 normal heart sound present GI Inspection: Yes normal to inspection Palpation (GI): Soft to palpation and nontender Auscultation: normal bowel sounds Skin General skin exam: no rashes or lesions noted Neuro General: no focal motor deficits Extrem General: Yes full ROM Psych Appearance: grossly normal Office Procedures Flu Questionnaire Does the patient have a severe egg allergy?: No Does the patient have severe life threatening allergies?: No Does the patient have a fever or illness today?: No Has the patient ever had Guillain-[place] Syndrome?: No Has the patient ever had any past reaction to a flu shot?: No Immunizations Fluarix Triv [id number] (PF) 45 mcg (15 mcg x 3)/0.5 mL IM syringe Performing Provider: Gale Howard MD Performing Location: [facility] – [place] [facility] Administered by: ROSEMARY Casanova on 07/31/24 11:02 Dose Route Admin Location Dispensed Lot Number Expiration Date [facility] Public Health Veterinarian 0.5 mL IM Left Deltoid 0.5 mL [id number] 03/26/25 [id number] [employer] - ASO VIS Given Date VIS Provided VIS Publication Date 07/31/24 Single Vaccine 21 Eligibility Eligibility Date Funding Source Not [facility] Eligible 07/31/24 Private Coding Level of Care Code Est Pt Level 3 (47850) Est Pt Prev Care 18-39y(80332) Diagnoses Physical exam Z00.00 Nasal polyps J33.9 Mild major depression F32.0 Additional Codes NAYLA-7 Assessment Billing - NAYLA-7 Assessment Tool: NAYLA-7 Assessment 47988 ([id number]) Vital Signs *Quality* - CPT code: 26499 - 4-10 Minutes ([id number]) Time Spent (min) 35 Assessment & Plan Assessment & Plan (1) Physical exam: Code(s): Z00.00 - Encounter for general adult medical examination without abnormal findings Category: Medical Plan: Repeat in a year. (2) Nasal polyps: Code(s): J33.9 - Nasal polyp, unspecified Category: Medical Plan: Referred to ENT. (3) Mild major depression: Code(s): F32.0 - Major depressive disorder, single episode, mild Category: Medical Plan: Referral for counseling. Orders: Orders Influenza [id number] Immunization Today Z23 - Encounter for immunization Referrals Ear/Nose/Throat Referral J33.9 - Nasal polyp, unspecified, J34.89 - Other specified disorders of nose and nasal sinuses Counseling Referral F32.0 - Major depressive disorder, single episode, mild Medications: New prednisone Take 4 tabs for 2 days, then 3 tabs for 2 days, then 2 tabs for 2 days, then 1 tab for 2 days 10 mg PO DIRECTED 20 tabs 0RF 8 days pseudoephedrine HCl ER 120 mg PO Q12H PRN 10 tabs 0RF nasal congestion 5 days
[2024-07-31 10:22] VITALS: BP 122/80; BMI 38.9
== END 2024-07-31 11:01 | disposition home or self-care (01) ==
LOC: HO.HMCH 10:18
PROVIDERS: PCP Internal Medicine; Visit Provider Internal Medicine
DX: Z00.00 Encounter for general adult medical examination without abnormal findings (principal); J33.9 Nasal polyp, unspecified; F32.0 Major depressive disorder, single episode, mild; Z23 Encounter for immunization

== ENCOUNTER → 2024-07-31 10:17 | Outpatient (BNVA) | payer OTHER, SELFPAY | PROVIDERS: PCP Internal Medicine; Visit Provider Internal Medicine | DX: Z00.01 Encounter for general adult medical examination with abnormal findings (principal); Z23 Encounter for immunization; J33.9 Nasal polyp, unspecified; F32.0 Major depressive disorder, single episode, mild | CPT/HCPCS: 90471; 90656; 96127; 99212; 99395 ==

== ENCOUNTER 2024-11-21 09:18 | Outpatient (AMB) | payer OTHER, SELFPAY ==
--- NOTE | 2024-11-21 09:29 | MHC.PC.OV ---
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 Accompanied by: Self / Same As Patient Allergies No Known Allergies Allergy (Mild, Verified 11/21/24 09:44) NKA Medication List - Last Reconciled 11/21/24 by Gale Howard MD albuterol sulfate 90 mcg/actuation (Ventolin HFA) 2 puffs PO Q4-6H PRN 30 days calcium citrate-vitamin D3 315 mg-5 mcg (200 unit) (Calcium Citrate + D) 1 tab PO BID clotrimazole 1% (Antifungal (clotrimazole)) 1 appl topical BID 4 weeks fluticasone propion-salmeterol 45-21 mcg/actuation (Advair HFA) 2 puffs inhalation BID 30 days fluticasone propionate 50 mcg/actuation 2 sprays intranasal DAILY hydrocortisone 1% (Anti-Itch (hydrocortisone)) 1 appl topical BID ibuprofen 600 mg PO Q8H PRN loratadine 10 mg PO DAILY nn-[id number]-ladr-FA-vit [id number] 22.5 mg-400 mcg -500 mcg-10 mg (DEKAs Bariatric) tabs PO DAILY Tobacco use date assessed: 11/21/24 Dental Screening Dental Screen Date: 11/21/24 Did you have a dental visit in the last 12 months?: No Did you have a dental problem in the last 6 months where you did not have access to dental care?: No Was dental information given to patient?: Patient has dentist HPI HPI Comments History of Present Illness Details This is a 34-year-old female with seasonal allergies, moderate asthma, mild major depression in remission and obesity that comes today for follow-up on her conditions. On antihistamines as needed for allergies. On long-acting inhaler for asthma but is still wheezing and will be referred to pulmonology. Mild depression is in remission and no need for medication at the moment. She is obese with a BMI of 38.9 and had bariatric surgery 3 years ago. Was advised to do diet and exercise to reach BMI goal less than 30 and I did refer her to weight management again. [facility] Medical History (Updated 11/21/24 @ 09:55 by Gale Howard MD) Well woman exam with routine gynecological exam Morbid obesity HTN (hypertension) GERD (gastroesophageal reflux disease) Hypertension H. pylori infection Cervical cancer screening control counseling Bacterial vaginosis Chlamydia infection Pre-op evaluation Daytime somnolence Obesity, morbid, BMI 50 or higher Menstrual periods irregular Amenorrhea, secondary Potential exposure to STD Moderate asthma Surgical History S/P laparoscopic sleeve gastrectomy History of laparoscopic cholecystectomy Family History Father Hypertension Glaucoma Mother Hypertension Asthma Alzheimer's disease Son In good health Sister In good health Sister No problems noted. Brother No problems noted. Social History Household Members: Children Housing: House Are you a primary childcare attendant to a significant other at home: No Do you presently have visiting nurse or other home services: No Alcohol intake: current Alcohol intake frequency: holidays/special occasions only Alcohol type: beer Patient Tobacco Use Status: Current everyday Tobacco user Tobacco use type: Cigarette Cigarettes Per Day: 5 e-Cigarette/Vaping Use: Never Used Second Hand Smoke Exposure: No service: No Current occupational status: employed Current occupational exposures/hazards: No Cognitive needs: No Hearing needs: No Vision needs: No Female Reproductive History Menstrual Age of Menarche: 11 Questionnaire PHQ-9 Over the last 2 weeks, how often have you been bothered by any of the following problems? 1. Little interest or pleasure in doing things: not at all 2. Feeling down, depressed, or hopeless: not at all 3. Trouble falling or staying asleep, or sleeping too much: not at all 4. Feeling tired or having little energy: not at all 5. Poor appetite or overeating: not at all 6. Feeling bad about yourself - or that you are a failure or have let yourself or your family down: not at all 7. Trouble concentrating on things, such as reading the newspaper or watching television: not at all 8. Moving or speaking so slowly that other people could have noticed. Or the opposite - being so fidgety or restless that you have been moving around a lot more than usual: not at all 9. Thoughts that you would be better off or of hurting yourself in some way: not at all Total score: 0 Depression Screening Interpretation: Negative Depression Screening Done: Yes 02087 - PHQ-9 Billing: Yes Source: Developed by Drs. Kirill Walsh, Stacy Mart, Josef Munroe and colleagues, with an educational марина from [employer]. Thrive Questionnaire Date Thrive assessed: 11/21/24 I am a: Patient What is your living situation today?: I have a steady place to live Within the past 12 months, did the food you bought not last and you didn't have the money to get more?: Never true Within the past 12 months, did you worry whether your food would run out before you got money to buy more?: Never true Do you have trouble paying for medicines?: No Do you have trouble getting transportation to medical appointments?: No Do you have trouble paying your heating and electricity bill?: No Do you have trouble taking care of your child, family member or friend?: No Do you have trouble with day-to-day activities such as bathing, preparing meals, shopping, managing finances, etc.?: No Are you currently unemployed and looking for a job?: No Are you interested in more education?: No Please select the resources that you would like help with: None Currently or been in a relationship where the following occur: No concerns reported THRIVE Score: 0 AUDIT C Alcohol Use Questionnaire (AUDIT-C) 1. How often do you have a drink containing alcohol?: Monthly or less 2. How many drinks containing alcohol do you have on a typical day when you are drinking?: 1 or 2 3. How often do you have six or more drinks on one occasion?: Never Total Score: 1 Score Reviewed/Action Taken: No NAYLA-7 AMB Questionnaire NAYLA-7 Date NAYLA - 7 assessed: 11/21/24 Feeling nervous, anxious, or on edge: 0 = Not at all Not being able to stop or control worryin = Not at all Worrying too much about different things: 0 = Not at all Trouble relaxin = Not at all Being so restless that it is hard to sit still: 0 = Not at all Becoming easily annoyed or irritable: 0 = Not at all Feeling afraid as if something awful might happen: 0 = Not at all Total NAYLA-7 score (0-4 normal; 5-9 mild; 10-14 moderate; 15-21 severe): 0 Source: Developed by Drs. Kirill Walsh, Stacy Mart, Josef Munroe and colleagues, with an educational марина from [employer]. NAYLA-7 Assessment Billing NAYLA-7 Assessment Tool: NAYLA-7 Assessment 47094 Review of Systems Const All systems reviewed & are unremarkable except as noted in HPI and below Card Denies chest pain at rest, Denies chest pain with activity, Denies edema, Denies irregular heart rhythm, Denies claudication, Denies dyspnea, Denies dyspnea on exertion, Denies orthopnea, Denies paroxysmal nocturnal dyspnea and Denies slow heart rate Resp Denies cough, Denies dyspnea and Denies dyspnea on exertion GI Denies abdominal pain, Denies change in bowel habits, Denies excessive flatus, Denies nausea and Denies vomiting Denies urinary incontinence, Denies urinary hesitancy and Denies urinary urgency Musc Denies abnormal gait, Denies atrophy, Denies deformity and Denies limited range of motion Skin/Breast Denies bleeding lesions, Denies changing lesions and Denies rash Neuro Denies abnormal gait, Denies behavioral changes and Denies lack of coordination Psych Denies behavioral changes Physical exam (Primary Care) Vital Signs: Last Vital Signs BP 136/82 11/21/24 09:30 BMI result Body Mass Index 38.9 BMI Assessment/Plan discussion: High BMI High, discussed plan: lifestyle, weight reduction, dietary and physical activity Tobacco/Smoking Status: Tobacco use Status Tobacco use date assessed 11/21/24 11/21/24 09:35 Patient Tobacco Use Status Current everyday Tobacco 11/21/24 09:35 Tobacco use type Cigarette 11/21/24 09:35 e-Cigarette/Vaping Use Never Used 11/21/24 09:35 PHQ-9: PHQ-9 Score PHQ-9: Total score 0 11/21/24 09:45 Depression Screening Interpretation: Negative Thrive Assessment: Date of Thrive Assessment Date Thrive assessed 11/21/24 11/21/24 09:35 Currently or been in a relationship where the following occur: No concerns reported Resp Effort & Inspection: normal respiratory effort Auscultation: clear to auscultation bilaterally Cardio Jugular venous distension: no JVD Rate: regular rate Rhythm: regular rhythm Heart sounds: S1 normal heart sound present and S2 normal heart sound present Extrem General: Yes full ROM Coding Level of Care Code Est Pt Level 4 (72886) Complex EM visit Add On G2211 Diagnoses Mild major depression F32.0 Class 2 obesity with body mass index (BMI) of 38.0 to 38.9 in adult E66.812; Z68.38 Moderate asthma J45.909 Seasonal allergies J30.2 Additional Codes NAYLA-7 Assessment Billing - NAYLA-7 Assessment Tool: NAYLA-7 Assessment 37355 ([id number]) PHQ-9 - 27700 - PHQ-9 Billing: Yes ([id number]) Time Spent (min) 23 Assessment & Plan Assessment & Plan (1) Mild major depression: Code(s): F32.0 - Major depressive disorder, single episode, mild Category: Medical Plan: In remission. (2) Class 2 obesity with body mass index (BMI) of 38.0 to 38.9 in adult: Code(s): E66.812 - Obesity, class 2; Z68.38 - Body mass index [BMI] 38.0-38.9, adult Category: Medical Plan: Referred to weight management. BMI goal is less than 30. (3) Moderate asthma: Comment: has rescue inhaler-well controlled at this time Code(s): J45.909 - Unspecified asthma, uncomplicated Category: Medical Plan: Continue long-acting inhaler. Use rescue inhaler as needed. Referred to pulmonology. (4) Seasonal allergies: Code(s): J30.2 - Other seasonal allergic rhinitis Category: Medical Plan: Continue antihistamines as needed. Orders: Orders Lipid Panel 9 Months E6.81 - Obesity, class 2, E78.5 - Hyperlipidemia, unspecified, Z68.38 - Body mass index [BMI] 38.0-38.9, adult Comprehensive Met. Panel 9 Months E66.812 - Obesity, class 2, Z68.38 - Body mass index [BMI] 38.0-38.9, adult Complete Blood Count Auto Diff 9 Months E66.812 - Obesity, class 2, Z68.38 - Body mass index [BMI] 38.0-38.9, adult Referrals Medical Weight Management Referral E6.812 - Obesity, class 2, Z68.38 - Body mass index [BMI] 38.0-38.9, adult Pulmonology Referral J45.909 - Unspecified asthma, uncomplicated
[2024-11-21 09:30] VITALS: BP 136/82; BMI 38.9
--- OUTSIDE RECORDS SUMMARY | 2024-11-21 10:13 | XMS_ITS | Data Portability ---
Author Organization [place] - [facility], Allergy Address [address] [place] [address] Care Team Providers Care Director Of Home Economics Name Role Phone XI GONZALEZ Primary Care Provider Assessment No assessment recorded. Plan of Treatment Reminders Order Date Submit Date Provider Last Modified By Organization Details Last Modified Time Details Appointments Test Results 15 2024 08:15A M MEL Ta MD Not available Not available Not available Lab None recorded. Referral None recorded. Procedures None recorded. Surgeries None recorded. Imaging CT, sinuses, w/o contrast - to be done here at f/u 2024 025 [facility] [place], [address] [facility] [address], [place], [address], 11/17/2024 10:38:08 Medication Orders prednison e 10 mg tablet 2024 025 [facility], [address] [place] [address], [id number], 11/07/2024 11:21:46 doxycycli ne hyclate 100 mg tablet 2024 025 [facility], [address] [place] [address], [id number], 11/07/2024 11:21:46 fluticaso ne propionat e 50 mcg/actua tion nasal spray,dion pension 2024 025 [facility], [address] [place] [address], [id number], 11/07/2024 11:21:46 Patient TargetsNo targets recorded. Patient InstructionsNo instructions recorded. Reason for Referral None Reported. Results Created Date Observation Date Name Description Value Unit Range Abnormal Flag Note LastModifiedBy Organization Detail LastModifiedTime 11/17/1911/16/2024 CT, sinus es, w/o contr ast No observ ation record ed. re[facility] [place] [address] [facility] [address], [place], [address], 11/20/2024 14:46:34 Result Notes None recorded. Problems Name Problem SNOMED Code Status Onset Date Resolution Date Notes Provider Name and Address Organization Details Recorded Time Nasal congestion 16739550 Active 025 MEL Ta MD [address] [place] [address], [place], [address], [facility] - [facility] [place] 5 11:05:36 Chronic sinusitis 13711681 Active 025 MEL Ta MD [address] [place] [address], [place], [address], [facility] - [facility] [place] 5 11:05:39 Seasonal allergic rhinitis 279573110 Active 025 MEL Ta MD [address] [place] [address], [place], [address], [facility] - [facility] [place] 5 11:05:43 Polyp of nasal cavity 944155597 Active 025 MEL Ta MD [address] [place] [address], [place], [address], [facility] - [facility] [place] 5 11:10:36 Problem Notes None recorded. Procedures Surgical History Date Name Laterality Status Provider Name and Address Organization Details Recorded Time 11/07/2024 NasalEndos copy_DP completed MEL RESTREPO MD [address] [place] [address], [phone], [facility] - [facility] [place] 11/07/2024 11:05:57 Imaging Results Imaging Date Name Status LastModified by Organiz ation Details LastModified Time 11/16/2024 CT, sinuses, w/o contrast [facility] [place] [address] [facility] [address], [place], [address], 11/20/2024 14:46:34 Procedure Notes None recorded. Medical Equipment None Reported. Medications Name Sig Start Date Stop Date Status Note LastModified by Organization Details LastModified Time prednisone 10 mg tablet TAKE 4 TABLETS BY MOUTH EVERY DAY FOR 3 DAYS, THEN DECREASE TO 2 TABLETS DAILY FOR 3 DAYS, THEN 1 TABLET DAILY FOR 3 DAYS, THEN STOP active Not Available Not Available No t Available azithromycin 250 mg tablet TAKE 2 TABLETS BY MOUTH ON DAY 1, THEN TAKE 1 TABLET DAILY ON DAYS 2-5 active Not Available Not Available No t Available fluticasone propionate 50 mcg/actuatio n nasal spray,suspen emigdio INSTILL 2 SPRAYS IN EACH NOSTRIL ONCE DAILY active Not Available Not Available N ot Available clotrimazole 1 % topical cream APPLY 1/4 GRAM TOPICALLY TO AFFECTED AREA(S) TWICE DAILY DIRECTED FOR quatro WEEKS active Not Available Not Available No t Available doxycycline hyclate 100 mg tablet TAKE 1 TABLET BY MOUTH TWICE DAILY FOR 10 DAYS active Not Available Not Available No t Available loratadine 10 mg tablet TAKE 1 TABLET BY MOUTH EVERY DAY active Not Available Not Available No t Available Ventolin HFA 90 mcg/actuatio n aerosol inhaler INHALE 2 PUFFS BY MOUTH EVERY 4 TO 6 HOURS NEEDED FOR WHEEZING active Not Available Not Available No t Available Advair HFA 45 mcg-21 mcg/actuatio n aerosol inhaler INHALE 2 PUFFS BY MOUTH TWICE DAILY. ADMINISTER WITH SPACER. active Not Available Not Available No t Available Vitals Date Recorded Body height Body mass index (BMI) Body weight Provider Name and Address Organization Details Last Updated DateTime 11/07/2024 165.1 cm 37.9 kg/m2 584786.06 g Mónica Kenny [place] - [facility] 11/07/2024 11:00:30 Social History None recorded. Functional Status None recorded. Mental Status None recorded. Family History Nothing Reported. Medical History No medical history recorded. Gynecological HistoryNo gynecological history recorded. Obstetrics History GPAL:G 0 P 0 0 0 0 Past Encounters Encounter ID Performer Location Encounter Start Date Encounter Closed Date Diagnosis/Indication Diagnosis SNOMED-CT Code Diagnosis ICD10 Code Diagnosis Note [id number] MEL RESTREPO MD [facility] [address] [place] [address] 11/07/2024 10:49:49 11/07/2024 11:15:59 Nasal congestion 31889983 R09.81 due to polyps Chronic sinusitis 764485 00 J32.9 see below Polyp of nasal cavity 73 1457539 J33.0 She has bilateral polyps which are 100% obstructiv e. I recommend maximal medical therapy with doxy, prednisone and flonase. We will have her f/u with a CT sinus and assess improvemen t and the need for surgery. Health Concerns Section Related Observation LastModified by Organization Detai ls LastModified Time None Recorded Concern Status LastModified by Organization Details LastModified Time None Recorded Advance Directives Directive None Recorded Payers Encounter Date Sequence Insurance Name Policy Number Policy Banuelos Covered Member ID Banuelos Member ID Guarantor Name 11/07/2024 1 [facility] - HEALTH NET PLAN (MEDICAID HMO) JUSTA Carvajal [id number] Clifford Carvajal Notes Date Note Type Note Provider Name and Address Organization Details Recorded Time 11/07/2024 text/html She reports nasal blockage for 2 years. She feels like something is inside her nose blocking her breathing. She was treated for sinusitis once in the last year. She reports she has no sense of smell. She has some facial pain over the bridge of her nose. She uses claritin. Can't use nasal sprays she says because they don't go into her nose when she sprays. She does smoke. MEL RESTREPO MD [address], [address], [facility] - [facility] 11/07/2024 11:13:34 OBGyn Episode No OBEpisode recorded.
== END 2024-11-21 09:53 | disposition home or self-care (01) ==
PROVIDERS: PCP Internal Medicine; Visit Provider Internal Medicine
DX: F32.0 Major depressive disorder, single episode, mild (principal); E66.812 Obesity, class 2; Z68.38 Body mass index [BMI] 38.0-38.9, adult; J45.909 Unspecified asthma, uncomplicated; J30.2 Other seasonal allergic rhinitis

== ENCOUNTER → 2024-11-21 09:18 | Outpatient (BNVA) | payer OTHER, SELFPAY | PROVIDERS: PCP Internal Medicine; Visit Provider Internal Medicine | DX: F32.0 Major depressive disorder, single episode, mild (principal); E66.812 Obesity, class 2; Z68.38 Body mass index [BMI] 38.0-38.9, adult; J45.909 Unspecified asthma, uncomplicated; Z71.3 Dietary counseling and surveillance | CPT/HCPCS: 96127; 99212 ==

== ENCOUNTER 2024-12-05 14:29 | Outpatient (AMB) | payer OTHER, SELFPAY ==
--- NOTE | 2024-12-05 14:32 | MHC.OFFVISWM ---
VS Expanded 12/05/24 14:48 BP 134/84 Blood Pressure Location Rt brachial Blood Pressure Position Sitting Pulse 90 Pulse Source Pulse Oximeter Temp 97.9 F Temperature Source Temporal Artery Scan Pulse Oximetry 99 Oxygen Delivery Method Room Air Height 5 ft 5 in Weight 221 lb 3.2 oz BMI 36.8 Body Fat % 43.1 Body Fat Mass 95.2 Fat Free Mass 125.8 Visceral Fat Rating 10.0 Body Water % 40.8 Body Water Mass 90.2 Muscle Mass/Score 119.4 Basal Metabolic Rate/Score 1,773 Intake Visit Reasons: (OV) PO LSG 06/09/22 [employer] Required: Yes [employer] Services: [employer] Present [employer] Name: [facility] Allergies No Known Allergies Allergy (Mild, Verified 12/05/24 14:47) NKA Medication List - Last Reconciled 12/05/24 by ALESSANDRA Asher albuterol sulfate 90 mcg/actuation (Ventolin HFA) 2 puffs PO Q4-6H PRN 30 days clotrimazole 1% (Antifungal (clotrimazole)) 1 appl topical BID 4 weeks fluticasone propion-salmeterol 45-21 mcg/actuation (Advair HFA) 2 puffs inhalation BID 30 days fluticasone propionate 50 mcg/actuation 2 sprays intranasal DAILY hydrocortisone 1% (Anti-Itch (hydrocortisone)) 1 appl topical BID loratadine 10 mg PO DAILY HPI Comments Details: This?a?34?yo female who is s/p LSG without hiatal hernia repair on?06/09/2022. Presents for 2 year six-month post op visit. She was last seen in the office in 01/14/2023 with a weight of 218 lb. Weight today is 221.2 pounds, with a BMI of 36.8. There has been a 122.4 pound weight loss,(initial weight 343.6 pounds) since starting the program on 01/02/2022 reflecting a 35.6 % total body weight loss and a weight loss of 84.1 pounds since surgery (operative weight 305.3 pounds) reflecting a 27.5 % TBWL since surgery. No complaints of nausea, emesis, abdominal pain or reflux. Reports infrequent but normal bowel movements everyday. Present meal plan includes: nothing formal ? Exercise routine includes: treadmill, stationary bike and weight at home. treadmill, 300 calories, 2 hours, no incline, 2 days per week stationary bike 30 min, 120 calories, 2 days per week [facility] Medical History (Updated 11/21/24 @ 09:55 by Gale Howard MD) Well woman exam with routine gynecological exam Morbid obesity HTN (hypertension) GERD (gastroesophageal reflux disease) Hypertension H. pylori infection Cervical cancer screening control counseling Bacterial vaginosis Chlamydia infection Pre-op evaluation Daytime somnolence Obesity, morbid, BMI 50 or higher Menstrual periods irregular Amenorrhea, secondary Potential exposure to STD Moderate asthma Surgical History (Updated 12/05/24 @ 15:12 by ALESSANDRA Asher) S/P laparoscopic sleeve gastrectomy History of laparoscopic cholecystectomy Family History Father Hypertension Glaucoma Mother Hypertension Asthma Alzheimer's disease Son In good health Sister In good health Sister No problems noted. Brother No problems noted. Social History Household Members: Children Housing: House Are you a primary associate director career services to a significant other at home: No Do you presently have visiting nurse or other home services: No Alcohol intake: current Alcohol intake frequency: holidays/special occasions only Alcohol type: beer Patient Tobacco Use Status: Current everyday Tobacco user Tobacco use type: Cigarette Cigarettes Per Day: 5 e-Cigarette/Vaping Use: Never Used Second Hand Smoke Exposure: No service: No Current occupational status: employed Current occupational exposures/hazards: No Cognitive needs: No Hearing needs: No Vision needs: No Female Reproductive History Menstrual Age of Menarche: 11 Physical Exam Vital Signs: Last Vital Signs Temp 97.9 F 12/05/24 14:48 Const General: healthy appearing and no acute distress Resp Effort & Inspection: normal respiratory effort Auscultation: clear to auscultation bilaterally Cardio Rate: regular rate Rhythm: regular rhythm GI Auscultation: normal bowel sounds Extrem General: Yes normal to inspection Assessment & Plan Assessment & Plan (1) S/P laparoscopic sleeve gastrectomy: Comment: May 2022 Code(s): Z98.84 - Bariatric surgery status Category: Surgical Plan: Discussed the importance of following a meal plan. She was given information regarding the right BMI jose antonio. discussed the importance of following the meal plan exactly, drinking her shakes over 2 hours. Measuring her food with a dinner fork. Additionally, discussed the importance of exercise. She has exercise equipment at home including a treadmill and stationary bike. Unfortunately to treadmill is small and does not incline however she is using this and it is free. Encouraged to continue exercise with a goal of burning 300 calories per day, 7 days a week. We will check postop labs. We will have her return to the office in approximately 6 weeks. Orders: Orders Lipid Panel Today K74.00 - Hepatic fibrosis, unspecified, Z98.84 - Bariatric surgery status Vitamin B12 and Folate Today K74.00 - Hepatic fibrosis, unspecified, Z98.84 - Bariatric surgery status Zinc Today K74.00 - Hepatic fibrosis, unspecified, Z98.84 - Bariatric surgery status C Reactive Protein Today K74.00 - Hepatic fibrosis, unspecified, Z98.84 - Bariatric surgery status Vitamin B1 Today K74.00 - Hepatic fibrosis, unspecified, Z98.84 - Bariatric surgery status TSH reflex Free T4 Today K74.00 - Hepatic fibrosis, unspecified, Z98.84 - Bariatric surgery status Ferritin Today K74.00 - Hepatic fibrosis, unspecified, Z98.84 - Bariatric surgery status Vitamin D 25-OH Total Today K74.00 - Hepatic fibrosis, unspecified, Z98.84 - Bariatric surgery status Insulin Today K74.00 - Hepatic fibrosis, unspecified, Z98.84 - Bariatric surgery status Hemoglobin A1c Today K74.00 - Hepatic fibrosis, unspecified, Z98.84 - Bariatric surgery status Complete Blood Count Auto Diff Today K74.00 - Hepatic fibrosis, unspecified, Z98.84 - Bariatric surgery status IRON PROFILE Today K74.00 - Hepatic fibrosis, unspecified, Z98.84 - Bariatric surgery status Comprehensive Met. Panel Today K74.00 - Hepatic fibrosis, unspecified, Z98.84 - Bariatric surgery status Vitamin A Today K74.00 - Hepatic fibrosis, unspecified, Z98.84 - Bariatric surgery status
[2024-12-05 14:48] VITALS: BP 134/84; PULSE 90; TEMP 36.6; O2SAT 99; BMI 36.8
--- OUTSIDE RECORDS SUMMARY | 2024-12-05 17:46 | XMS_ITS | Data Portability ---
Author Organization [place] - [facility], Allergy Address [address] [place] [address] Care Team Providers Care Vacuum Metalizing Supervisor Name Role Phone XI GONZALEZ Primary Care Provider [phone] Assessment No assessment recorded. Plan of Treatment [...] be done here at f/u 2024 025 [facility] [place], [address] [facility], [facility] [address], [place], [address], 11/17/2024 10:38:08 Medication Orders prednison e 10 mg tablet 2024 025 [facility], [address] [place] [address], [id number], 11/07/2024 11:21:46 doxycycli ne hyclate 100 mg tablet 2024 025 [facility], [address] [place] [address], [id number], 11/07/2024 11:21:46 fluticaso ne propionat e 50 mcg/actua tion nasal spray,dion pension 2024 025 [facility], [address] [place] [address], [id number], 11/07/2024 11:21:46 Patient TargetsNo targets recorded. Patient InstructionsNo instructions recorded. Reason for Referral None Reported. Results Created Date Observation Date Name Description Value Unit Range Abnormal Flag Note LastModifiedBy Organization Detail LastModifiedTime 11/17/1911/16/2024 CT, sinus es, w/o contr ast No observ ation record ed. [facility] [place] [address] [facility] [address], [place], [address], 11/20/2024 14:46:34 Result Notes None recorded. Problems Name Problem SNOMED Code Status Onset Date Resolution Date Notes Provider Name and Address Organization Details Recorded Time Nasal congestion 71938844 Active 025 MEL Ta MD [address] [place] [address], [place], [address], [facility] - [facility] [place] 5 11:05:36 Chronic sinusitis 32133727 Active 025 MEL Ta MD [address] [place] [address], [place], [address], [facility] - [facility] [place] 5 11:05:39 Seasonal allergic rhinitis 695367777 Active 025 MEL Ta MD [address] [place] [address], [place], [address], [facility] - [facility] [place] 5 11:05:43 Polyp of nasal cavity 122272616 Active 025 MEL Ta MD [address] [place] [address], [place], [address], [facility] - [facility] [place] 5 11:10:36 Problem Notes None recorded. Procedures Surgical History Date Name Laterality Status Provider Name and Address Organization Details Recorded Time 11/07/2024 NasalEndos copy_DP completed MEL RESTREPO MD [address] [place] [address], [phone], [facility] - [facility] [place] 11/07/2024 11:05:57 Imaging Results Imaging Date Name Status LastModified by Organiz ation Details LastModified Time 11/16/2024 CT, sinuses, w/o contrast [facility] [place] [address] [facility] [address], [place], [address], 11/20/2024 14:46:34 Procedure Notes None recorded. Medical [...] Updated DateTime 11/07/2024 165.1 cm 37.9 kg/m2 909809.06 g Mónica Kenny [place] - [facility] 11/07/2024 11:00:30 Social History None recorded. Functional Status None recorded. Mental Status None recorded. Family History Nothing Reported. Medical History No medical history recorded. Gynecological HistoryNo gynecological history recorded. Obstetrics History GPAL:G 0 P 0 0 0 0 Past Encounters Encounter ID Performer Location Encounter Start Date Encounter Closed Date Diagnosis/Indication Diagnosis SNOMED-CT Code Diagnosis ICD10 Code Diagnosis Note [id number] MEL RESTREPO MD [facility] [address] [place] [address] 11/07/2024 10:49:49 11/07/2024 11:15:59 Nasal congestion 20188393 R09.81 due to polyps Chronic sinusitis 741202 00 J32.9 see below Polyp of nasal cavity 73 4233187 J33.0 She has bilateral polyps which are [...] Banuelos Member ID Guarantor Name 11/07/2024 1 [facility] - HEALTH NET PLAN (MEDICAID HMO) JUSTA Carvajal [id number] Clifford Carvajal Notes Date Note Type Note [...] sprays. She does smoke. MEL RESTREPO MD [address] [place] [address], [phone], [facility] - [facility] 11/07/2024 11:13:34 OBGyn Episode No OBEpisode recorded.
--- OUTSIDE RECORDS SUMMARY | 2024-12-05 17:46 | XMS_ITS | Continuity of Care Document ---
Author Organization [place] - [facility], [facility] Address [address] [place] [address] Care Team Providers Care Supervisor Pole Yard Name Role Phone XI GONZALEZ Primary Care [...] be done here at f/u 2024 025 [facility] [place], [address] [facility] [address], [place], [address], 11/17/2024 10:38:08 Medication Orders prednison e 10 mg tablet 2024 025 [facility], [address] [place] [address], [id number], 11/07/2024 11:21:46 doxycycli ne hyclate 100 mg tablet 2024 025 [facility], [address] [place] [address], [id number], 11/07/2024 11:21:46 fluticaso ne propionat e 50 mcg/actua tion nasal spray,dion pension 2024 025 [facility], [address] [place] [address], [id number], 11/07/2024 11:21:46 Patient TargetsNo targets recorded. Patient InstructionsNo instructions recorded. Reason for Referral None Reported. Results Created Date Observation Date Name Description Value Unit Range Abnormal Flag Note LastModifiedBy Organization Detail LastModifiedTime 11/17/1911/16/2024 CT, sinus es, w/o contr ast No observ ation record ed. reppsteiner [facility] [place] [address] [facility] [address], [place], [address], 11/20/2024 14:46:34 Result Notes None recorded. Problems Name Problem SNOMED Code Status Onset Date Resolution Date Notes Provider Name and Address Organization Details Recorded Time Nasal congestion 89344754 Active 025 MEL Ta MD [address] [place] [address], [place], [address], [facility] - [facility] 5 11:05:36 Chronic sinusitis 24643526 Active 025 MEL Ta MD [address] [place] [address], [place], [address], [facility] - [facility] [place] 11:05:39 Seasonal allergic rhinitis 639487215 Active 025 MEL Ta MD [address] [place] [address], [place], [address], [facility] - [facility] [place] 5 11:05:43 Polyp of nasal cavity 626680549 Active 025 MEL Ta MD [address] [place] [address], [place], [address], [facility] - [facility] [place] 5 11:10:36 Problem Notes None recorded. Procedures Surgical History Date Name Laterality Status Provider Name and Address Organization Details Recorded Time 11/07/2024 NasalEndos copy_DP completed MEL RESTREPO MD [address] [place] [address], [phone], [facility] - [facility] [place] 11/07/2024 11:05:57 Imaging Results None recorded. Procedure Notes None recorded. Medical Equipment None [...] Updated DateTime 11/07/2024 165.1 cm 37.9 kg/m2 765006.06 g Mónica Kenny [place] - [facility] 11/07/2024 11:00:30 Social History None recorded. Functional Status None recorded. Mental Status None recorded. Family History Nothing Reported. Medical History No medical history recorded. Gynecological HistoryNo gynecological history recorded. Obstetrics History GPAL:G 0 P 0 0 0 0 Past Encounters Encounter ID Performer Location Encounter Start Date Encounter Closed Date Diagnosis/Indication Diagnosis SNOMED-CT Code Diagnosis ICD10 Code Diagnosis Note [id number] MEL RESTREPO MD [facility] [address] [address] 11/07/2024 10:49:49 11/07/2024 11:15:59 Nasal congestion 15875310 R09.81 due to polyps Chronic sinusitis 789133 00 J32.9 see below Polyp of nasal cavity 73 7212458 J33.0 She has bilateral polyps which are 100% obstructiv e. I recommend maximal medical therapy with doxy, prednisone and flonase. We will have her f/u with a CT sinus and assess improvemen t and the need for surgery. Health Concerns Section Related Observation LastModified by Organization Detai ls LastModified Time None Recorded Concern Status LastModified by Organization Details LastModified Time None Recorded Payers Encounter Date Sequence Insurance Name Policy Number Policy Banuelos Covered Member ID Banuelos Member ID Guarantor Name 11/07/2024 1 [facility] - HEALTH NET PLAN (MEDICAID HMO) JUSTA Carvajal [id number] Clifofrd Carvajal Notes Date Note Type Note Provider [...] sprays. She does smoke. MEL RESTREPO MD [address] [place] [address], [place], [address], [facility] - [facility] 11/07/2024 11:13:34 OBGyn Episode No OBEpisode recorded.
== END 2024-12-05 15:16 | disposition home or self-care (01) ==
LOC: HO.HBS 14:30
PROVIDERS: PCP Internal Medicine; Visit Provider Physician Assistant Surgical
DX: E66.812 Obesity, class 2 (principal); Z68.36 Body mass index [BMI] 36.0-36.9, adult; Z90.3 Acquired absence of stomach [part of]; Z98.84 Bariatric surgery status
CPT/HCPCS: 99214

== ENCOUNTER → 2024-12-05 14:29 | Outpatient (BNVA) | payer OTHER, SELFPAY | PROVIDERS: PCP Internal Medicine; Visit Provider Physician Assistant Surgical | DX: Z98.84 Bariatric surgery status (principal) | CPT/HCPCS: 99212 ==

== ENCOUNTER 2024-12-06 14:28 | Outpatient (AMB) | payer OTHER, SELFPAY ==
[2024-12-06 14:35] VITALS: BP 132/78; PULSE 93; O2SAT 95; BMI 37.4
--- NOTE | 2024-12-06 14:35 | MHC.OFFVIS ---
Vital Signs 12/06/24 14:35 Height 5 ft 5 in Weight 225 lb BMI 37.4 BP 132/78 Blood Pressure Location Rt brachial Position Sitting Pulse 93 Pulse Source Pulse Oximeter Pulse Oximetry (%) 95 Oxygen Delivery Method Room Air Intake Visit Reasons: Asthma Combatant Diver Officer Required: Yes Combatant Diver Officer Services: Combatant Diver Officer Present Combatant Diver Officer Name: cristian [id number] Information Interpreted: non-clinical & clinical Marketing Budget Analyst: Marketing Budget Analyst offered & declined Accompanied by: Self / Same As Patient Allergies No Known Allergies Allergy (Mild, Verified 12/06/24 14:38) NKA Medication List - Last Reconciled 12/06/24 by Hanane Marie LPN albuterol sulfate 90 mcg/actuation (Ventolin HFA) 2 puffs PO Q4-6H PRN 30 days clotrimazole 1% (Antifungal (clotrimazole)) 1 appl topical BID 4 weeks fluticasone propion-salmeterol 45-21 mcg/actuation (Advair HFA) 2 puffs inhalation BID 30 days fluticasone propionate 50 mcg/actuation 2 sprays intranasal DAILY hydrocortisone 1% (Anti-Itch (hydrocortisone)) 1 appl topical BID loratadine 10 mg PO DAILY HPI HPI Asthma: Details: Joyce is a pleasant 34 year old female, current minimal smoker, with less than 5 pack year history with underlying asthma, seasonal allergies and nasal polyps. She was referred by PCP for pulmonary evaluation. She has been suboptimally controlled on Advair 45mcg using albuterol MDI on a daily basis with good effect. She continues with dyspnea, dry cough and wheezing. She reports asthma dx as a child, never requiring intubation. She endorses seasonal allergies, no recent allergy testing. She reports mother and brother with asthma. She denies any occupational exposures. [facility] Medical History (Updated 12/06/24 @ 15:08 by Madison Rainey NP) Well woman exam with routine gynecological exam Morbid obesity HTN (hypertension) GERD (gastroesophageal reflux disease) Hypertension H. pylori infection Cervical cancer screening control counseling Bacterial vaginosis Chlamydia infection Pre-op evaluation Daytime somnolence Obesity, morbid, BMI 50 or higher Menstrual periods irregular Amenorrhea, secondary Potential exposure to STD Moderate asthma Surgical History (Updated 12/05/24 @ 15:12 by ALESSANDRA Asher) S/P laparoscopic sleeve gastrectomy History of laparoscopic cholecystectomy Family History Father Hypertension Glaucoma Mother Hypertension Asthma Alzheimer's disease Son In good health Sister In good health Sister No problems noted. Brother No problems noted. Social History Household Members: Children Housing: House Are you a primary rehab care assistant to a significant other at home: No Do you presently have visiting nurse or other home services: No Alcohol intake: current Alcohol intake frequency: holidays/special occasions only Alcohol type: beer Patient Tobacco Use Status: Current everyday Tobacco user Tobacco use type: Cigarette Cigarettes Per Day: 5 e-Cigarette/Vaping Use: Never Used Second Hand Smoke Exposure: No service: No Current occupational status: employed Current occupational exposures/hazards: No Cognitive needs: No Hearing needs: No Vision needs: No Female Reproductive History Menstrual Age of Menarche: 11 Review of Systems Const Denies chills, Denies excessive sweating, Denies fever(s), Denies headache(s) and Denies night sweats Eyes Denies dry eyes, Denies irritation and Denies itchy eyes ENT Reports Normal hearing present, Denies headache(s), Denies nasal discharge and Denies sore throat Card Denies chest pain, Denies chest pain at rest, Denies chest pain with activity, Denies claudication, Denies leg edema, Denies dyspnea, Denies orthopnea and Denies paroxysmal nocturnal dyspnea Resp Denies chest congestion, Denies excessive phlegm production, Denies pain on inspiration, Denies pain with cough, Denies dyspnea and Denies stridor Musc Denies myalgias Neuro Reports Normal hearing present and Denies headache(s) Endo Denies excessive sweating Chandler/Lymph Denies lymphadenopathy Aller/Immun Denies itchy eyes Physical Exam Vital Signs: Last Vital Signs Pulse 93 12/06/24 14:35 BP 132/78 12/06/24 14:35 Pulse Ox 95 12/06/24 14:35 Oxygen Delivery Method Room Air 12/06/24 14:35 BMI result Body Mass Index 37.4 Const General: cooperative, healthy appearing, comfortable, no acute distress, well developed and alert Orientation/consciousness: patient oriented x3 Limitations: no limitations HEENT Head: Yes normal to inspection, Yes normocephalic and Yes atraumatic Ears: hearing grossly normal bilaterally and external ears normal Eyes General: appearance normal, both eyes and all related structures Eyelids: Yes eyelids normal Sclerae: sclerae normal EOM: EOMs intact bilaterally Neck Neck: Yes normal visual inspection and Yes no lymphadenopathy Lymphatic: no lymphadenopathy noted Chest Chest palpation & inspection: normal inspection of the chest Resp Effort & Inspection: normal respiratory effort, able to speak in complete sentences, no audible wheezes, no cough, no stridor, not tachypneic, no tripod positioning and no use of accessory muscles Auscultation: clear to auscultation bilaterally Cardio Jugular venous distension: no JVD Rate: regular rate Rhythm: regular rhythm Skin Other: warm, dry General skin exam: no rashes or lesions noted Neuro General: patient oriented x3 Cranial nerves: Yes Normal hearing present Cognition (Neuro): normal cognition Gait exam (Neuro): Normal gait present Extrem General: Yes normal to inspection, Yes capillary refill normal, Yes no clubbing, cyanosis or edema and Yes no pedal edema Psych Appearance: grossly normal and well kempt Speech and movement: Normal speech and movement present and Clear speech present Affect: normal affect Attitude: cooperative Thought process: Normal thought process present Thought content: Normal thought content present Insight: Good insight present (Psych) Judgement: Good judgement present (Psych) Assessment & Plan Assessment & Plan (1) Asthma: Code(s): J45.909 - Unspecified asthma, uncomplicated Category: Medical (2) Environmental allergies: Code(s): Z91.09 - Other allergy status, other than to drugs and biological substances Category: Medical (3) Cough: Code(s): R05.9 - Cough, unspecified Category: Medical Plan Joyce's symptoms are likely related to poorly controlled asthma. Will increase Advair to 115 mcg. Will send for PFT to assess severity of obstructive defect and RAST to assess for an allergic component. Will also send for CXR to assess for any underlying parenchymal condition contributing to symptoms. All questions were answered and patient is in agreement of plan. Will follow up in 6-8 weeks or sooner if needed. Orders: Orders Immunoglobulin E Today Z91.09 - Other allergy status, other than to drugs and biological substances Resp Allergy Profile Region I Today Z91.09 - Other allergy status, other than to drugs and biological substances XR chest 2V Today R05.9 - Cough, unspecified PFT pulmonary function test Today J45.909 - Unspecified asthma, uncomplicated Medications: New fluticasone propion-salmeterol 115-21 mcg/actuation (Advair HFA) 2 puffs inhalation Q12H 12 grams 3RF Discontinued fluticasone propion-salmeterol 45-21 mcg/actuation (Advair HFA) administer with spacer Discontinued Reason: Patient Completed Course 2 puffs inhalation BID 30 days 8 grams 3RF Coding Level of Care Code New Pt Level 4 (77222) Diagnoses Asthma J45.909 Environmental allergies Z91.09 Cough R05.9
== END 2024-12-06 15:06 | disposition home or self-care (01) ==
LOC: HO.HPSW 14:30
PROVIDERS: PCP Internal Medicine; Referring Provider Internal Medicine; Visit Provider Nurse Practitioner Family
DX: J45.909 Unspecified asthma, uncomplicated (principal); Z91.09 Other allergy status, other than to drugs and biological substances; R05.9 Cough, unspecified
CPT/HCPCS: 99204

== ENCOUNTER → 2024-12-06 14:28 | Outpatient (BNVA) | payer OTHER, SELFPAY | PROVIDERS: PCP Internal Medicine; Referring Provider Internal Medicine; Visit Provider Nurse Practitioner Family | DX: J45.909 Unspecified asthma, uncomplicated (principal); Z91.09 Other allergy status, other than to drugs and biological substances; R05.9 Cough, unspecified | CPT/HCPCS: 99202 ==

== ENCOUNTER 2024-12-06 15:11 | Outpatient (REF) | payer OTHER, SELFPAY ==
--- OUTSIDE RECORDS SUMMARY | 2024-12-06 17:56 | XMS_ITS | Data Portability ---
Author Organization [place] [facility], Allergy Address [address] [place] [phone] Care Team Providers Care Commercial Lease Administrator Name Role Phone XI GONZALEZ Primary Care Provider Assessment No assessment recorded. Plan of Treatment Reminders Order Date Submit Date Provider Last Modified By Organization Details Last Modified Time Details Appointments Test Results 15 2024 08:15A M MEL aT MD Not available Not available Not available Lab None recorded. Referral None recorded. Procedures None recorded. Surgeries None recorded. Imaging CT, sinuses, w/o contrast - to be done here at f/u 2024 025 [facility] [place], [address] [facility], [facility] [address], [place], [address], 11/17/2024 10:38:08 Medication Orders prednison e 10 mg tablet 2024 025 [facility], [address] [place] [address], [id number], 11/07/2024 11:21:46 doxycycli ne hyclate 100 mg tablet 2024 025 [facility], [address] [place] [address], [id number], 11/07/2024 11:21:46 fluticaso ne propionat e 50 mcg/actua tion nasal spray,dion pension 2024 025 [facility], [address] [place] [address], [id number], 11/07/2024 11:21:46 Patient TargetsNo targets recorded. Patient InstructionsNo instructions recorded. Reason for Referral None Reported. Results Created Date Observation Date Name Description Value Unit Range Abnormal Flag Note LastModifiedBy Organization Detail LastModifiedTime 11/17/1911/16/2024 CT, sinus es, w/o contr ast No observ ation record ed. reppsteiner [facility] [place] [address] [facility] [address], [place], [address], 11/20/2024 14:46:34 Result Notes None recorded. Problems Name Problem SNOMED Code Status Onset Date Resolution Date Notes Provider Name and Address Organization Details Recorded Time Nasal congestion 94783891 Active 025 MEL Ta MD [address] [place] [address], [place], [phone], [facility] - [facility] [place] 5 11:05:36 Chronic sinusitis 33122751 Active 025 MEL Ta MD [address] [place] [address], [place], [phone], [facility] - [facility] [place] 5 11:05:39 Seasonal allergic rhinitis 971775662 Active 025 MEL Ta MD [address] [place] [address], [place], [phone], [facility] - [facility] 5 11:05:43 Polyp of nasal cavity 184682926 Active 025 MEL Ta MD [address] [place] [address], [place], [phone], [facility] - [facility] 5 11:10:36 Problem Notes None recorded. Procedures Surgical History Date Name Laterality Status Provider Name and Address Organization Details Recorded Time 11/07/2024 NasalEndos copy_DP completed MEL RESTREPO MD [address] [place] [address], [phone], [facility] - [facility] 11/07/2024 11:05:57 Imaging Results Imaging Date Name Status LastModified by Organiz ation Details LastModified Time 11/16/2024 CT, sinuses, w/o contrast [facility] [place] [address] [facility] [address], [place], [address], 11/20/2024 14:46:34 Procedure Notes None recorded. Medical [...] Updated DateTime 11/07/2024 165.1 cm 37.9 kg/m2 812220.06 g Mónica Kenny [place] [facility] 11/07/2024 11:00:30 Social History None recorded. Functional Status None recorded. Mental Status None recorded. Family History Nothing Reported. Medical History No medical history recorded. Gynecological HistoryNo gynecological history recorded. Obstetrics History GPAL:G 0 P 0 0 0 0 Past Encounters Encounter ID Performer Location Encounter Start Date Encounter Closed Date Diagnosis/Indication Diagnosis SNOMED-CT Code Diagnosis ICD10 Code Diagnosis Note [id number] MEL RESTREPO MD [facility] [address] [place] [address] 11/07/2024 10:49:49 11/07/2024 11:15:59 Nasal congestion 07493118 R09.81 due to polyps Chronic sinusitis 782245 00 J32.9 see below Polyp of nasal cavity 73 3101035 J33.0 She has bilateral polyps which are [...] Banuelos Member ID Guarantor Name 11/07/2024 1 [facility] - HEALTH NET PLAN (MEDICAID HMO) JUSTA Carvajal [id number] Clifford Carvajal Notes Date Note Type Note [...] sprays. She does smoke. MEL RESTREPO MD [address] [place] [address], [phone], [facility] - [facility] 11/07/2024 11:13:34 OBGyn Episode No OBEpisode recorded.
--- OUTSIDE RECORDS SUMMARY | 2024-12-06 17:56 | XMS_ITS | Continuity of Care Document ---
Author Organization [place] - [facility], [facility] Address [address] [place] [address] Care Team Providers Care Volunteer Recruiter Name Role Phone XI GONZALEZ Primary Care Provider [phone] Assessment No assessment recorded. Plan of Treatment [...] done here at f/u 2024 025 [facility] [place], [address] [facility] [address], [place], [address], 11/17/2024 10:38:08 Medication Orders prednison e 10 mg tablet 2024 025 [facility], [address] [place] [address], [id number], 11/07/2024 11:21:46 doxycycli ne hyclate 100 mg tablet 2024 025 [facility], [address] [place] [address], [id number], 11/07/2024 11:21:46 fluticaso ne propionat e 50 mcg/actua tion nasal spray,dion pension 2024 025 [facility], [address] [place] [address], [id number], 11/07/2024 11:21:46 Patient TargetsNo targets recorded. Patient InstructionsNo instructions recorded. Reason for Referral None Reported. Results Created Date Observation Date Name Description Value Unit Range Abnormal Flag Note LastModifiedBy Organization Detail LastModifiedTime 11/17/1911/16/2024 CT, sinus es, w/o contr ast No observ ation record ed. reppsteiner [facility] [place] [address] [facility] [address], [place], [address], 11/20/2024 14:46:34 Result Notes None recorded. Problems Name Problem SNOMED Code Status Onset Date Resolution Date Notes Provider Name and Address Organization Details Recorded Time Nasal congestion 94120486 Active 025 MEL Ta MD [address] [place] [address], [place], [phone], [facility] - [facility] 5 11:05:36 Chronic sinusitis 81151340 Active 025 MEL Ta MD [address] [place] [address], [place], [address], [facility] - [facility] [place] 11:05:39 Seasonal allergic rhinitis 823673344 Active 025 MEL Ta MD [address] [place] [address], [place], [address], [facility] - [facility] [place] 5 11:05:43 Polyp of nasal cavity 612626930 Active 025 MEL Ta MD [address] [place] [address], [place], [address], [facility] - [facility] [place] 5 11:10:36 Problem Notes None recorded. Procedures Surgical History Date Name Laterality Status Provider Name and Address Organization Details Recorded Time 11/07/2024 NasalEndos copy_DP completed MEL RESTREPO MD [address] [place] [address], [phone], [facility] - [facility] [place] 11/07/2024 11:05:57 Imaging Results None recorded. Procedure [...] Updated DateTime 11/07/2024 165.1 cm 37.9 kg/m2 331369.06 g Mónica Kenny [place] [facility] 11/07/2024 11:00:30 Social History None recorded. Functional Status None recorded. Mental Status None recorded. Family History Nothing Reported. Medical History No medical history recorded. Gynecological HistoryNo gynecological history recorded. Obstetrics History GPAL:G 0 P 0 0 0 0 Past Encounters Encounter ID Performer Location Encounter Start Date Encounter Closed Date Diagnosis/Indication Diagnosis SNOMED-CT Code Diagnosis ICD10 Code Diagnosis Note [id number] MEL RESTREPO MD [facility] [address] [address] 11/07/2024 10:49:49 11/07/2024 11:15:59 Nasal congestion 18526485 R09.81 due to polyps Chronic sinusitis 532113 00 J32.9 see below Polyp of nasal cavity 73 6102779 J33.0 She has bilateral polyps which are [...] Member ID Guarantor Name 11/07/2024 1 [facility] - HEALTH NET PLAN (MEDICAID HMO) JUSTA Carvajal [id number] Clifford Carvajal Notes Date Note Type Note [...] sprays. She does smoke. MEL RESTREPO MD [address] [place] [address], [place], [phone], [facility] - [facility] 11/07/2024 11:13:34 OBGyn Episode No OBEpisode recorded.
[2024-12-06 18:10] LABS: MANUAL DIFF FLAG NO
[2024-12-06 18:24] LABS: Basophils Percent Auto 0.4 % (0-2); Eosinophils Absolute Auto 0.1 X10*3/uL (0.0-0.4); Eosinophils Percent Auto 2.4 % (0-4); Hematocrit 36.5 % (37.0-47.0); Hemoglobin 12.5 g/dl (12.0-16.0); Imm Gran Abs Auto 0.01 X10*3/uL (0.00-0.03); Imm Gran Pct Auto 0.2 % (0.0-0.4); Lymphocytes Absolute Auto 1.4 X10*3/uL (1.2-4.9); Mean Corpuscular HGB Conc 34.2 g/dl (31.0-35.0); Mean Corpuscular Hemoglobin 28.7 pg (27.0-33.0); Mean Corpuscular Volume 83.7 fL (80.0-98.0); Monocytes Absolute Auto 0.3 X10*3/uL (0.1-1.2); Monocytes Percent Auto 4.7 % (2-11); Neutrophils Absolute Auto 3.7 x10*3/uL (2.0-8.3); Neutrophils Percent Auto 66.3 % (45-73); Platelet Count 259 X10*3/uL (160-400); Red Blood Count 4.36 X10*6/uL (4.20-5.50); Red Cell Distribution Width 13.6 % (11.0-16.0); White Blood Count 5.5 X10*3/uL (4.8-10.8)
[2024-12-06 18:59] LABS: Alanine Aminotransferase 12 U/L (0-31); Alkaline Phosphatase 43 U/L (39-117); Anion Gap 11 (12-20); Aspartate Amino Transferase 15 U/L (5-31); Bilirubin Total 0.6 mg/dL (0.0-1.0); Blood Urea Nitrogen 13 mg/dL (9-16); Calcium 9.6 mg/dL (8.4-10.2); Carbon Dioxide 21 mmol/L (22-29); Chloride 112 mmol/L (96-108); Cholesterol 164 mg/dL (<200); Estimated Glomerular Filt Rate > 60; Glucose Random 100 mg/dL (60-115); HDL Cholesterol 46 mg/dL (>40); Iron 37 mcg/dL (30-160); LDL Cholesterol Calculated 108 mg/dL (<100); Percent Iron Saturation 12 % (15-50); Sodium 140 mmol/L (135-145); Total Iron Binding Capacity 306 mcg/dL (228-428); Triglycerides 52 mg/dL (<150); Unsaturated Iron Binding 269 ug/dL
[2024-12-06 19:08] LABS: Ferritin 27 ng/mL (10-122); TSH reflex Free T4 0.54 uIU/mL (0.32-4.0); Vitamin D 25-OH Total 14.4 ng/mL (>30)
[2024-12-06 19:15] LABS: Folate 15.7 ng/mL (> or = 4.0); Vitamin B12 328 pg/mL (200-900)
[2024-12-06 19:21] LABS: Insulin 32 uU/mL (2-29)
[2024-12-07 03:48] LABS: Syphilis Screen Nonreactive (Nonreactive)
[2024-12-07 04:13] LABS: HBsAGNum1 0.31 S/CO (0.00-0.99); HIV AB/AG Nonreactive (Nonreactive); HIV Num 1 0.67 S/CO (0.00-0.99); Hepatitis B Surface Antigen Negative (Negative); ~HepC Num1 0.23 S/CO (0.00-0.79); ~Hepatitis C Antibody Nonreactive (Nonreactive)
[2024-12-07 06:02] LABS: Estimated Average Glucose 100 mg/dL; Hemoglobin A1c % 5.1 % (<6.0)
[2024-12-08 19:33] LABS: Immunoglobulin E 365 kU/L (<OR=114)
[2024-12-09 23:54] LABS: Vitamin A 29 mcg/dL (38-98)
[2024-12-12 08:48] LABS: Class Alternaria alternata 0; Class Aspergillus fumigatus 0; Class Bermuda Grass 0; Class Birch 0; Class Cat Dander 4; Class Cladosporium herbarum 0; Class Cockroach 0; Class Common Ragweed 0; Class Cottonwood 0; Class Derm. pterony 2; Class Dermatophagoides farinae 2; Class Dog Dander 4; Class Elm 0; Class Maple Box Elder 0; Class Mountain Cedar 0; Class Mouse Urine Protein 3; Class Mugwort 0; Class Oak 2; Class Penicillium crysogenum 0; Class Rough Pigweed 0; Class Sheep Sorrel 0; Class Sycamore 0; Class Timothy Grass 0; Class Walnut Tree 0; Class White Ash 0; Class White Mulberry 0; D001 IgE D pteronyssinus 2.57 kU/L; D002 - IgE D farinae 1.08 kU/L; E072-IgE Mouse Urine 4.67 kU/L; G002 IgE Bermuda Grass <0.10 kU/L; G006 - IgE Timothy Grass <0.10 kU/L; I006-IgE Cockroach, German <0.10 kU/L; Immunoglobulin E 341 kU/L (<OR=114); M001 IgE Penicillium chrysogen <0.10 kU/L; M002 - IgE Cladosporium herbar <0.10 kU/L; M003 - IgE Aspergillus fumigat <0.10 kU/L; M006 - IgE Alternaria alternat <0.10 kU/L; T001 IgE Maple/Box Elder <0.10 kU/L; T003 IgE Common Silver Birch <0.10 kU/L; T006 - IgE Cedar, Mountain <0.10 kU/L; T007 - IgE Oak, White 2.26 kU/L; T008 IgE Elm, American <0.10 kU/L; T010 - IgE Walnut <0.10 kU/L; T011 - IgE Maple Leaf Sycamore <0.10 kU/L; T014 - IgE Cottonwood <0.10 kU/L; T015 - IgE Ash, White <0.10 kU/L; T070 - IgE White Mulberry <0.10 kU/L; W001 - IgE Ragweed, Short <0.10 kU/L; W006 - IgE Mugwort <0.10 kU/L; W014 IgE Pigweed, Common <0.10 kU/L; W018 IgE Sheep Sorrel <0.10 kU/L
[2024-12-15 16:39] LABS: Vitamin B1 12 nmol/L (8-30)
== END 2024-12-06 15:12 | disposition home or self-care (01) ==
LOC: HO.WFDLDS 15:11
PROVIDERS: Advanced Practice Midwife; Referring Provider Physician Assistant Surgical; Visit Provider Nurse Practitioner Family
DX: Z01.419 Encounter for gynecological examination (general) (routine) without abnormal findings (principal); Z20.2 Contact with and (suspected) exposure to infections with a predominantly sexual mode of transmission; Z98.84 Bariatric surgery status; K74.00 Hepatic fibrosis, unspecified; Z91.09 Other allergy status, other than to drugs and biological substances
CPT/HCPCS: 36415; 80053; 80061; 82306; 82607; 82728; 82746; 82785; 83036; 83525; 83540; 84425; 84443; 84590; 85025; 86003; 86140; 86780; 86803; 87340; 87389

== ENCOUNTER 2025-01-25 15:42 | Outpatient (REF) | payer OTHER, SELFPAY ==
--- NOTE | 2025-01-25 15:47 | PFT_ITS ---
Spirometry [] Lung Volumes [] Diffusion Capacity [] Methacholine Challenge [] Flow Volume Loops [] MVV [] MIP/MEP(Max inspiratory pressure/Max expiratory pressure) [] 6 Minute Walk Test [] ABG [] Interpretation [] MTDD
[2025-01-25 16:24] VITALS: PULSE 86; O2SAT 100
--- OUTSIDE RECORDS SUMMARY | 2025-01-25 17:19 | XMS_ITS | Data Portability ---
Author Organization [place] - [facility], Allergy Address [address] [place] [address] Care Team Providers Care Career Services Representative Name Role Phone XI GONZALEZ Primary Care Provider Assessment No assessment recorded. Plan of Treatment Reminders Order Date Submit Date Provider Last Modified By Organization Details Last Modified Time Details Appointments FOLLOW UP 30 2024 11:30A M MEL Ta MD Not available Not available Not available Lab None recorded. Referral None recorded. Procedures None recorded. Surgeries None recorded. Imaging CT, sinuses, w/o contrast - to be done here at f/u 2024 025 [place] [facility] [place], [address] [facility], [facility] [address], [place], [address], 11/17/2024 10:38:08 Medication Orders budesonid e 0.5 mg/2 mL suspensio n for nebulizat ion 2024 025 [facility], [address] [place] [address], [id number], 01/02/2025 09:25:54 prednison e 10 mg tablet 2024 025 [facility], [address] [place] [address], [id number], 11/07/2024 11:21:46 doxycycli ne hyclate 100 mg tablet 2024 025 [facility], [address] [place] [address], [id number], 11/07/2024 11:21:46 fluticaso ne propionat e 50 mcg/actua tion nasal spray,dion pension 2024 025 [facility], [address] [place], [place], [id number], 11/07/2024 11:21:46 Patient TargetsNo targets recorded. Patient InstructionsNo instructions recorded. Reason for Referral None Reported. Results Created Date Observation Date Name Description Value Unit Range Abnormal Flag Note LastModifiedBy Organization Detail LastModifiedTime 11/17/1911/16/2024 CT, sinus es, w/o contr ast No observ ation record ed. reppsteiner [facility] [place] [address] [address], [place], [address], 11/20/2024 14:46:34 Result Notes None recorded. Problems Name Problem SNOMED Code Status Onset Date Resolution Date Notes Provider Name and Address Organization Details Recorded Time Nasal congestion 74663554 Active 025 MEL Ta MD [address] [address], [place], [address], [facility] - [facility] 5 11:05:36 Chronic sinusitis 35975691 Active 025 MEL Ta MD [address] [address], [place], [address], [facility] - [facility] 5 11:05:39 Seasonal allergic rhinitis 394059820 Active 025 MEL Ta MD [address] [address], [place], [address], [facility] - [facility] [place] 5 11:05:43 Polyp of nasal cavity 947548838 Active 025 MEL Ta MD [address] [place] [address], [place], [address], [facility] - [facility] [place] 5 11:10:36 Problem Notes None recorded. Procedures Surgical History Date Name Laterality Status Provider Name and Address Organization Details Recorded Time 01/02/2025 NasalEndos copy_DP completed MEL RESTREPO MD [address] [address], [place], [address], [facility] 01/02/2025 08:44:55 11/07/2024 NasalEndos copy_DP completed MEL RESTREPO MD [address] [facility] [address], [place], [address], [facility] 11/07/2024 11:05:57 Imaging Results Imaging Date Name Status LastModified by Organiz ation Details LastModified Time 11/16/2024 CT, sinuses, w/o contrast [email or web address] [place] [address] [facility] [address], [place], [address], 11/20/2024 14:46:34 Procedure Notes None recorded. Medical [...] Not Available Not Available No t Available vitamin A 3,000 mcg (10,000 unit) capsule TAKE 1 CAPSULE BY MOUTH EVERY DAY active Not Available Not Available No t Available budesonide 0.5 mg/2 mL suspension for nebulization active Not Available Not Available Not Available fluticasone propionate 50 mcg/actuatio n nasal [...] Not Available No t Available Advair HFA 115 mcg-21 mcg/actuatio n aerosol inhaler INHALE 2 PUFFS BY MOUTH EVERY TWELVE HOURS, RINSE MOUTH AFTER USING. active Not Available Not Available No t Available Vitals Date Recorded Body height Body mass index (BMI) Body weight Provider Name and Address Organization Details Last Updated DateTime 01/02/2025 165.1 cm 36.6 kg/m2 07273.32 [facility] 01/02/2025 08:29:05 Date Recorded Body height Body mass index (BMI) Body weight Provider Name and Address Organization Details Last Updated DateTime 11/07/2024 165.1 cm 37.9 kg/m2 187199.06 g [facility] 11/07/2024 11:00:30 Social History None recorded. Functional Status None recorded. Mental Status None recorded. Family History Nothing Reported. Medical History Condition Response Allergies/Hayfever N Heart Problems N Anxiety N Tonsil Infections N Emphysema N Migraines Y Thyroid Problems N Glaucoma N Depression N COPD N Developmental Delay N Nasal or Sinus Problems Y Anemia N Immune System Disorder N Anesthesia Complications N Heart Attack ([place]) N Other Skin Condition N Diabetes N Rhinitis N Bleeding Disorder N Food Allergy N Arthritis N Hearing Loss N Hyperlipidemia N Cancer N Stroke N Dementia N Nasal polyps Y Asthma Y Sleep Disorder N GERD/Reflux N High Cholesterol N Liver Disease N Headaches N Fibromyalgia N Hypertension Y Speech Delay N Kidney Disease N Gynecological HistoryNo gynecological history recorded. Obstetrics History GPAL:G 0 P 0 0 0 0 Past Encounters Encounter ID Performer Location Encounter Start Date Encounter Closed Date Diagnosis/Indication Diagnosis SNOMED-CT Code Diagnosis ICD10 Code Diagnosis Note [id number] MEL RESTREPO MD [facility] [address] [address] 11/07/2024 10:49:49 11/07/2024 11:15:59 Nasal congestion 77602365 R09.81 due to polyps Chronic sinusitis 046685 00 J32.9 see below Polyp of nasal cavity 73 3460087 J33.0 She has bilateral polyps which are 100% obstructiv e. I recommend maximal medical therapy with doxy, prednisone and flonase. We will have her f/u with a CT sinus and assess improvemen t and the need for surgery. [id number] MEL RESTREPO MD [facility] [address] [place] [address] 01/02/2025 08:21:47 01/02/2025 08:42:29 Nasal congestion 07484042 R09.81 due to polyps Chronic sinusitis 830288 [address] scan demonstrat es pansinusit is. She also has 100% obstructiv e nasal polyps on nasal endoscopy again today. She is a candidate for surgery. The patient has failed medical therapy and is a candidate for FESS. The surgical plan will including: bilateral maxillary antrostomy , total ethmoidect yoon and frontal sinusotomy I discussed the risks, benefits and alternativ es to endoscopic sinus surgery including but not limited to damage to the orbit or optic nerve resulting in vision loss, double vision, or blindness. I also discussed the risk of CSF leak. I discussed the risk of recurrence of sinus disease or polyps requiring additional procedures , change in sense of smell, septal perforatio n, bleeding and infection including risks to damaging the internal carotid artery. I discussed the risk of damage to the tear duct with excessive tearing. I discussed the possible need for septoplast y for access. I discussed the risks, benefits and alternativ es to septoplast y. Specifical ly, I discussed the risk of bleeding (which may require more procedures or packing), infection, septal perforatio n, septal hematoma which if unrecogniz ed can lead to cosmetic nasal deformity, CSF leak, persistent nasal obstructio n despite surgery, change in appearance of nose if structural support is disrupted, change in sense of smell, and the possibilit y of predisposi tion of future sinus infections . I also discussed the possible need for nasal splints. The patient understand s the risks and would like to continue medical management for now. She may require septoplast y due to left septal deviation if surgery is pursued in the future. Polyp of nasal cavity 73 1872579 J33.0 She has bilateral polyps which are 100% obstructiv e.She only benefited slightly from maximal medical therapy. I discussed the off label use of budesonide rinses. She is interested in this. We will continue medical therapy with topical steroids and I will reassess in 4 months. She likely will need surgery at some point. Health Concerns Section Related Observation LastModified by Organization Detai ls LastModified Time None Recorded Concern Status LastModified by Organization Details LastModified Time None Recorded Advance Directives Directive None Recorded Payers Encounter Date Sequence Insurance Name Policy Number Policy Banuelos Covered Member ID Banuelos Member ID Guarantor Name 11/07/2024 1 [facility] PLAN (MEDICAID HMO) JUSTA Carvajal [id number] Clifford Carvajal 01/02/2025 1 [facility] (MEDICAID HMO) HAKEEMRUDYShane Clifford Levy Diane [id number] Clifford Carvajal Notes Date Note Type Note Provider Name and Address Organization Details Recorded Time 11/07/2024 text/html She reports nasa l blockage for 2 years. She feels like [...] sprays. She does smoke. MEL RESTREPO MD [address] [place] [address], [address], [place] - [facility] 11/07/2024 11:13:34 01/02/2025 text/html She reports nasa l blockage for 2 years. At the last visit nasal polyps were noted on nasal endoscopy. I sent her prednisone and antibiotics. She reports some mild symptomatic improvement with less facial pressure and slightly improved breathing and sense of smell. She continues to use Flonase. I personally reviewed her CT sinus which was obtained since the last visit which showed pansinusitis and nasal polyps. MEL RESTREPO MD [address] [place] [address],[address], [address], [facility] - [facility] 01/02/2025 08:48:05 OBGyn Episode No OBEpisode recorded.
== END 2025-01-25 15:43 | disposition home or self-care (01) ==
LOC: HO.RESP 15:42
PROVIDERS: PCP Internal Medicine; Visit Provider Nurse Practitioner Family
DX: J45.909 Unspecified asthma, uncomplicated (principal)
CPT/HCPCS: 94010; 94640; 94727; 94729

== ENCOUNTER → 2025-01-25 15:47 | Outpatient (BNV) | payer OTHER, SELFPAY | PROVIDERS: PCP Internal Medicine; Visit Provider Internal Medicine Pulmonary Disease | DX: J45.909 Unspecified asthma, uncomplicated (principal) | CPT/HCPCS: 94060; 94727; 94729 ==

== ENCOUNTER → 2025-01-26 13:30 | Outpatient (BNV) | payer OTHER, SELFPAY | PROVIDERS: PCP Internal Medicine; Visit Provider Internal Medicine | DX: Z12.31 Encounter for screening mammogram for malignant neoplasm of breast (principal) | CPT/HCPCS: 77063; 77067 ==

== ENCOUNTER 2025-01-26 13:38 | Outpatient (REF) | payer OTHER, SELFPAY | END 2025-01-26 13:39 | disposition home or self-care (01) | LOC: HO.MAMMO 13:38 | PROVIDERS: PCP Internal Medicine; Visit Provider Internal Medicine | DX: Z12.31 Encounter for screening mammogram for malignant neoplasm of breast (principal) | CPT/HCPCS: 77063; 77067 ==

== ENCOUNTER 2025-02-01 09:23 | Outpatient (AMB) | payer OTHER, SELFPAY ==
--- NOTE | 2025-02-01 09:25 | A.OFFVIS_ITS ---
VS Expanded 02/01/25 09:33 BP 119/71 Blood Pressure Location Rt brachial Blood Pressure Position Sitting Pulse 76 Pulse Source Pulse Oximeter Temp 96.9 F Temperature Source Temporal Artery Scan Pulse Oximetry 100 Oxygen Delivery Method Room Air Height 5 ft 5 in Weight 230 lb 12.8 oz BMI 38.4 Body Fat % 43.2 Body Fat Mass 99.6 Fat Free Mass 131.0 Visceral Fat Rating 10.0 Body Water % 40.7 Body Water Mass 94.0 Muscle Mass/Score 124.4 Basal Metabolic Rate/Score 1,845 Intake Visit Reasons: (OV) PO LSG 06/09/22 [employer]ocket [employer] Component Mechanic Required: Yes Rocket Engine Component Mechanic Services: Rocket Engine Component Mechanic Present Rocket Engine Component Mechanic Name: hospital cmi Allergies No Known Allergies Allergy (Mild, Verified 02/01/25 09:29) NKA Medication List - Last Reconciled 02/01/25 by ALESSANDRA Asher albuterol sulfate 90 mcg/actuation (Ventolin HFA) 2 puffs PO Q4-6H PRN 30 days clotrimazole 1% (Antifungal (clotrimazole)) 1 appl topical BID 4 weeks fluticasone propion-salmeterol 115-21 mcg/actuation (Advair HFA) 2 puffs inhalation Q12H fluticasone propionate 50 mcg/actuation 2 sprays intranasal DAILY hydrocortisone 1% (Anti-Itch (hydrocortisone)) 1 appl topical BID loratadine 10 mg PO DAILY vitamin A palmitate 3,000 mcg PO DAILY 90 days HPI Comments Details: This?a?34?yo female who is s/p LSG without hiatal hernia repair on?06/09/2022. Presents for 2 year 8 month post op visit. She was last seen in the office 12/05/2024 with a weight of 221.2 lb, prior to that she had not been seen in the office since December 2022 with a weight of 218 lb. Weight today is 230.8 lb with a BMI of 38.4. She has gained 9.6 lb since her last visit. There has been a 112.8 pound weight loss,(initial weight 343.6 pounds) since starting the program on 01/02/2022 reflecting a 32.8 % total body weight loss and a weight loss of 74.5 pounds since surgery (operative weight 305.3 pounds) reflecting a 24.4 % TBWL since surgery. No complaints of nausea, emesis, abdominal pain or reflux. Reports infrequent but normal bowel movements everyday. She states that since last visit she does not know why she gained weight. She went onto the right BMI jose antonio but was unable to translated to [place]. She did not communicate with me her difficulty. She states she has stress and anxiety and eats sweets at at night. Present meal plan includes: premier protein rtd meal rice, meat ? Exercise routine includes: treadmill, stationary bike and weight at home. PF treadmill 3 days per week, 300 emre stationary bike at home 30 min, 100 calories, 2 days per week PFSH Medical History (Updated 12/06/24 @ 15:08 by Madison Rainey NP) Well woman exam with routine gynecological exam Morbid obesity HTN (hypertension) GERD (gastroesophageal reflux disease) Hypertension H. pylori infection Cervical cancer screening control counseling Bacterial vaginosis Chlamydia infection Pre-op evaluation Daytime somnolence Obesity, morbid, BMI 50 or higher Menstrual periods irregular Amenorrhea, secondary Potential exposure to STD Moderate asthma Surgical History S/P laparoscopic sleeve gastrectomy History of laparoscopic cholecystectomy Family History Father Hypertension Glaucoma Mother Hypertension Asthma Alzheimer's disease Son In good health Sister In good health Sister No problems noted. Brother No problems noted. Social History Household Members: Children Housing: House Are you a primary director of health care marketing to a significant other at home: No Do you presently have visiting nurse or other home services: No Alcohol intake: current Alcohol intake frequency: holidays/special occasions only Alcohol type: beer Patient Tobacco Use Status: Current everyday Tobacco user Tobacco use type: Cigarette Cigarettes Per Day: 5 e-Cigarette/Vaping Use: Never Used Second Hand Smoke Exposure: No service: No Current occupational status: employed Current occupational exposures/hazards: No Cognitive needs: No Hearing needs: No Vision needs: No Female Reproductive History Menstrual Age of Menarche: 11 Physical Exam Const General: healthy appearing and no acute distress Resp Effort & Inspection: normal respiratory effort Auscultation: clear to auscultation bilaterally Cardio Rate: regular rate Rhythm: regular rhythm GI Auscultation: normal bowel sounds Extrem General: Yes normal to inspection Assessment & Plan Assessment & Plan (1) S/P laparoscopic sleeve gastrectomy: Comment: May 2022 Code(s): Z98.84 - Bariatric surgery status Category: Surgical Plan: Discussed the importance of following the plans. Discussed the importance of communicating with me weekly with her weight and texting with any questions or concerns. She did not communicate with me that she had difficulty translating the right BMI website into [place]. This was addressed during her visit today. She will trial meal plan and exercise plan prior to initiation of any medications at this time. She was offered referral to behavioral health given her underlying stress and anxiety but declines at this time. Additionally, discussed the importance of exercise as it directly relates to her weight loss goals. Goal is burning 300 calories per day 7 days per week. We will have her return to the office in 2 months.
[2025-02-01 09:33] VITALS: BP 119/71; PULSE 76; TEMP 36.1; O2SAT 100; BMI 38.4
--- OUTSIDE RECORDS SUMMARY | 2025-02-01 09:59 | XMS_ITS | Data Portability ---
Author Organization [place] - [facility], Allergy Address [address] [place] [address] Care Team Providers Care Ingot Supervisor Name Role Phone XI GONZALEZ Primary Care Provider [phone] Assessment No assessment recorded. Plan of Treatment [...] be done here at f/u 2024 025 [place] [facility] [place], [address] [facility], [facility] [address], [place], [address], 11/17/2024 10:38:08 Medication Orders budesonid e 0.5 mg/2 mL suspensio n for nebulizat ion 2024 025 [facility], [address] [place] [address], [id number], 01/02/2025 09:25:54 prednison e 10 mg tablet 2024 025 [facility], [address] [place] [address], [id number], 11/07/2024 11:21:46 doxycycli ne hyclate 100 mg tablet 2024 025 [facility], [address] [place] [address], [id number], 11/07/2024 11:21:46 fluticaso ne propionat e 50 mcg/actua tion nasal spray,dion pension 2024 025 [facility], [address] [place], [place], [id number], 11/07/2024 11:21:46 Patient TargetsNo targets recorded. Patient InstructionsNo instructions recorded. Reason for Referral None Reported. Results Created Date Observation Date Name Description Value Unit Range Abnormal Flag Note LastModifiedBy Organization Detail LastModifiedTime 11/17/1911/16/2024 CT, sinus es, w/o contr ast No observ ation record ed. reppsteiner [facility] [place] [address] [address], [place], [address], 11/20/2024 14:46:34 Result Notes None recorded. Problems Name Problem SNOMED Code Status Onset Date Resolution Date Notes Provider Name and Address Organization Details Recorded Time Nasal congestion 32942929 Active 025 MEL Ta MD [address] [address], [place], [address], [facility] - [facility] 5 11:05:36 Chronic sinusitis 21044383 Active 025 MEL Ta MD [address] [address], [place], [address], [facility] - [facility] 5 11:05:39 Seasonal allergic rhinitis 606258634 Active 025 MEL Ta MD [address] [address], [place], [address], [facility] - [facility] [place] 5 11:05:43 Polyp of nasal cavity 652192954 Active 025 MEL Ta MD [address] [place] [address], [place], [address], [facility] - [facility] [place] 5 11:10:36 Problem Notes None recorded. Procedures Surgical History Date Name Laterality Status Provider Name and Address Organization Details Recorded Time 01/02/2025 NasalEndos copy_DP completed MEL RESTREPO MD [address] [address], [place], [address], [facility] 01/02/2025 08:44:55 11/07/2024 NasalEndos copy_DP completed MEL RESTREPO MD 100 [facility] 100, [place], [address], [facility] 11/07/2024 11:05:57 Imaging Results Imaging Date Name Status LastModified by Organiz ation Details LastModified Time 11/16/2024 CT, sinuses, w/o contrast [facility] [place] [address] [facility] [address], [place], [address], 11/20/2024 14:46:34 Procedure Notes None recorded. Medical [...] Updated DateTime 01/02/2025 165.1 cm 36.6 kg/m2 10345.32 g [facility] 01/02/2025 08:29:05 Date Recorded Body height Body mass index (BMI) Body weight Provider Name and Address Organization Details Last Updated DateTime 11/07/2024 165.1 cm 37.9 kg/m2 131604.06 g [facility] 11/07/2024 11:00:30 Social History None recorded. [...] Disorder N Anesthesia Complications N Heart Attack ([place]) N Other Skin Condition N Diabetes N [...] SNOMED-CT Code Diagnosis ICD10 Code Diagnosis Note [id number] MEL RESTREPO MD [facility] [address] [address] 11/07/2024 10:49:49 11/07/2024 11:15:59 Nasal congestion 44637717 R09.81 due to polyps Chronic sinusitis 106589 00 J32.9 see below Polyp of nasal cavity 73 8499126 J33.0 She has bilateral polyps which are 100% obstructiv e. I recommend maximal medical therapy with doxy, prednisone and flonase. We will have her f/u with a CT sinus and assess improvemen t and the need for surgery. [id number] MEL RESTREPO MD [facility] [address] [place] [address] 01/02/2025 08:21:47 01/02/2025 08:42:29 Nasal congestion 80759670 R09.81 due to polyps Chronic sinusitis 170628 [address] scan demonstrat es pansinusit [...] the future. Polyp of nasal cavity 73 0142730 J33.0 She has bilateral polyps which are [...] Recorded Advance Directives Directive None Recorded Payers Insurance Date Sequence Insurance Name Policy Number Policy Banuelos Covered Member ID Banuelos Member ID Guarantor Name 01/02/2025 1 [facility] (MEDICAID HMO) HAKEEMRUDYShane DeleonClifford Levy Diane [id number] Clifford Carvajal 01/02/2025 1 [place]: [facility] Clifford Diane [id number] Clifford Diane Notes Date Note Type Note Provider Name [...] sprays. She does smoke. MEL RESTREPO MD [address] [place] [address], [address], [facility] 11/07/2024 11:13:34 01/02/2025 text/html She reports nasa [...] pansinusitis and nasal polyps. MEL RESTREPO MD [address] [place] [address],[address], [address], [facility] 01/02/2025 08:48:05 OBGyn Episode No OBEpisode recorded.
== END 2025-02-01 10:03 | disposition home or self-care (01) ==
LOC: HO.HBS 09:24
PROVIDERS: PCP Internal Medicine; Visit Provider Physician Assistant Surgical
DX: E66.9 Obesity, unspecified (principal); Z68.38 Body mass index [BMI] 38.0-38.9, adult; Z98.84 Bariatric surgery status
CPT/HCPCS: 99213; G2211

== ENCOUNTER → 2025-02-01 09:23 | Outpatient (BNVA) | payer OTHER, SELFPAY | PROVIDERS: PCP Internal Medicine; Visit Provider Physician Assistant Surgical | DX: Z98.84 Bariatric surgery status (principal) | CPT/HCPCS: 99212 ==

== ENCOUNTER → 2025-03-06 08:57 | Outpatient (REF) | payer OTHER, SELFPAY ==
--- NOTE | 2025-03-06 09:06 | ECG_ITS ---
Test Reason : pre proc exam Blood Pressure : */* mmHG Vent. Rate : 70 BPM Atrial Rate : 70 BPM P-R Int : 172 ms QRS Dur : 94 ms QT Int : 366 ms P-R-T Axes : 39 46 32 degrees QTcB Int : 395 ms Normal sinus rhythm Normal ECG When compared with ECG of 09-Jan-2022 09:07, No significant change was found Referred By: Gale Howard Electronically Signed By: RYLEY GAXIOLA MD
[2025-03-06 09:12] LABS: MANUAL DIFF FLAG NO
[2025-03-06 09:49] LABS: Basophils Percent Auto 0.3 % (0-2); Eosinophils Absolute Auto 0.3 X10*3/uL (0.0-0.4); Hematocrit 36.8 % (37.0-47.0); Hemoglobin 12.1 g/dl (12.0-16.0); Imm Gran Abs Auto 0.01 X10*3/uL (0.00-0.03); Imm Gran Pct Auto 0.2 % (0.0-0.4); Lymphocytes Absolute Auto 2.1 X10*3/uL (1.2-4.9); Lymphocytes Percent Auto 32.3 % (20-40); Mean Corpuscular HGB Conc 32.9 g/dl (31.0-35.0); Mean Corpuscular Hemoglobin 28.2 pg (27.0-33.0); Mean Corpuscular Volume 85.8 fL (80.0-98.0); Monocytes Absolute Auto 0.5 X10*3/uL (0.1-1.2); Neutrophils Absolute Auto 3.6 x10*3/uL (2.0-8.3); Neutrophils Percent Auto 56.2 % (45-73); Platelet Count 272 X10*3/uL (160-400); Red Blood Count 4.29 X10*6/uL (4.20-5.50); Red Cell Distribution Width 13.5 % (11.0-16.0); White Blood Count 6.4 X10*3/uL (4.8-10.8)
[2025-03-06 09:52] LABS: INTERNATIONAL NORM RATIO 0.9 (0.9-1.1); Prothrombin Time 10.7 SEC (10.9-12.4)
[2025-03-06 09:55] LABS: Partial Thromboplastin Time 35.9 SEC (26.0-36.8)
[2025-03-06 10:06] LABS: Appearance Urine Cloudy; Color Urine Yellow; Glucose Urine UA Negative (Negative); Leukocyte Esterase Urine Small (1+) (Negative); Nitrite Urine Negative (Negative); PH 5.5 (5.0-9.0); Specific Gravity - Urine >= 1.030 (1.005-1.025); UMIC TRIGGER UACC YES; Urine Blood Negative (Negative); Urine Ketones Trace mg/dL (Negative); Urine Protein Negative (Neg-Trace)
[2025-03-06 10:12] LABS: Bacteria Urine 4+ (None Seen); Hyaline Casts Urine 0-2 /LPF (0-2); RBC Urine 0-2 /HPF (0-2); UACC Culture Trigger YES
[2025-03-06 10:38] LABS: Alanine Aminotransferase 10 U/L (0-31); Albumin Level 4.1 g/dL (3.5-5.0); Alkaline Phosphatase 39 U/L (39-117); Anion Gap 10 (12-20); Aspartate Amino Transferase 24 U/L (5-31); Bilirubin Total 0.3 mg/dL (0.0-1.0); Blood Urea Nitrogen 19 mg/dL (9-16); Calcium 9.4 mg/dL (8.4-10.2); Carbon Dioxide 25 mmol/L (22-29); Chloride 111 mmol/L (96-108); Estimated Glomerular Filt Rate > 60; Glucose Fasting 85 mg/dL (60-99); Potassium 4.1 mmol/L (3.3-5.1); Sodium 142 mmol/L (135-145); Total Protein 6.9 g/dL (6.5-8.0)
[2025-03-06 10:44] LABS: HCG Quantitative < 2 mIU/mL; Thyroid Stimulating Hormone 2.75 uIU/mL (0.32-4.0)
[2025-03-06 10:47] LABS: HBS Num1 53.98 mIU/mL (0-7.99); HBc Num1 0.22 S/CO (0.00-0.79); HBsAGNum1 0.36 S/CO (0.00-0.99); HIV AB/AG Nonreactive (Nonreactive); HIV Num 1 0.05 S/CO (0.00-0.99); Hepatitis A Antibody IgM 0.18 Index (0-0.79); Hepatitis B Core Antibody Nonreactive (Nonreactive); Hepatitis B Surface Antigen Negative (Negative); ~Hepatitis A Antibody IgM Nonreactive (Nonreactive); ~Hepatitis B Surface Antibody REACTIVE (Nonreactive); ~Hepatitis C Antibody Nonreactive (Nonreactive)
[2025-03-06 11:12] LABS: T4 Thyroxine 8.2 ug/dL (4.5-12.0)
[2025-03-07 04:54] LABS: Triiodothyronine T3 Total 134 ng/dL (76-181)
== END ==
LOC: HO.CARD 08:57
PROVIDERS: PCP Internal Medicine; Visit Provider Internal Medicine
DX: Z01.818 Encounter for other preprocedural examination (principal); Z11.4 Encounter for screening for human immunodeficiency virus [HIV]; D64.9 Anemia, unspecified
CPT/HCPCS: 36415; 80053; 81001; 81003; 84436; 84443; 84480; 84702; 85025; 85610; 85730; 86704; 86706; 86709; 86803; 87086; 87340; 87389; 93005

== ENCOUNTER → 2025-03-06 09:06 | Outpatient (BNV) | payer OTHER, SELFPAY | PROVIDERS: PCP Internal Medicine; Visit Provider Internal Medicine Cardiovascular Disease | DX: Z01.810 Encounter for preprocedural cardiovascular examination (principal) | CPT/HCPCS: 93010 ==

== ENCOUNTER 2025-03-15 08:16 | Outpatient (AMB) | payer OTHER, SELFPAY ==
--- NOTE | 2025-03-15 08:19 | MHC.PC.OV ---
Vital Signs 03/15/25 08:20 Height 5 ft 5 in Weight 231 lb BMI 38.4 BP 118/82 Blood Pressure Location Lt brachial Position Sitting Respiration 12 Pulse 80 Pulse Source Palpation Intake Visit Reasons: Tummy tuck/ breast reduction done in [place] [employer] Required: No Accompanied by: Self / Same As Patient Allergies No Known Allergies Allergy (Mild, Verified 03/15/25 08:54) NKA Medication List - Last Reconciled 03/15/25 by Gale Howard MD albuterol sulfate 90 mcg/actuation (Ventolin HFA) 2 puffs PO Q4-6H PRN 30 days fluticasone propion-salmeterol 115-21 mcg/actuation (Advair HFA) 2 puffs inhalation Q12H fluticasone propionate 50 mcg/actuation 2 sprays intranasal DAILY loratadine 10 mg PO DAILY Tobacco use date assessed: 11/21/24 Dental Screening Dental Screen Date: 11/21/24 HPI HPI Comments History of Present Illness Details The patient is a 35-year-old female presenting with a preoperative evaluation for an abdominoplasty and breast lift. She is scheduled for surgery on April 05 and plans to travel on April 03. The patient has a history of asthma, for which she uses Advair daily. She is followed by a chief information security officer for her asthma management and plans to schedule another appointment soon. She also reports allergic rhinitis, for which she takes loratadine. Her surgical history includes a gastrectomy in 2021 and a cholecystectomy in 2008, both without complications. The patient has recently quit smoking after a two-month period of smoking approximately five cigarettes a day. She reports that she stopped smoking spontaneously and is managing cravings well. [facility] Medical History Pre-op evaluation Well woman exam with routine gynecological exam Morbid obesity HTN (hypertension) GERD (gastroesophageal reflux disease) Hypertension H. pylori infection Cervical cancer screening control counseling Bacterial vaginosis Chlamydia infection Daytime somnolence Obesity, morbid, BMI 50 or higher Menstrual periods irregular Amenorrhea, secondary Potential exposure to STD Moderate asthma Surgical History S/P laparoscopic sleeve gastrectomy History of laparoscopic cholecystectomy Family History Father Hypertension Glaucoma Mother Hypertension Asthma Alzheimer's disease Son In good health Sister In good health Sister No problems noted. Brother No problems noted. Social History (Updated 03/15/25 @ 08:58 by Gale Howard MD) Household Members: Children Housing: House Are you a primary day care attendant to a significant other at home: No Do you presently have visiting nurse or other home services: No Alcohol intake: current Alcohol intake frequency: holidays/special occasions only Alcohol type: beer Patient Tobacco Use Status: Former Tobacco user Tobacco use type: Cigarette Cigarettes Per Day: 5 e-Cigarette/Vaping Use: Never Used Second Hand Smoke Exposure: No service: No Current occupational status: employed Current occupational exposures/hazards: No Cognitive needs: No Hearing needs: No Vision needs: No Female Reproductive History Menstrual Age of Menarche: 11 Questionnaire Thrive Questionnaire Date Thrive assessed: 11/21/24 AUDIT C Alcohol Use Questionnaire (AUDIT-C) 2. How many drinks containing alcohol do you have on a typical day when you are drinking?: 3 or 4 3. How often do you have six or more drinks on one occasion?: Less than monthly Total Score: 2 NAYLA-7 AMB Questionnaire NAYLA-7 Date NAYLA - 7 assessed: 11/21/24 Source: Developed by Drs. Kirill Walsh, Stacy Mrat, Josef Munroe and colleagues, with an educational марина from [employer]. Review of Systems Const All systems reviewed & are unremarkable except as noted in HPI and below Eyes Reports no additional complaints, Denies change in vision and Denies other visual disturbances Card Denies chest pain at rest, Denies chest pain with activity, Denies edema, Denies irregular heart rhythm, Denies claudication, Denies dyspnea, Denies dyspnea on exertion, Denies orthopnea, Denies paroxysmal nocturnal dyspnea and Denies slow heart rate Resp Denies cough, Denies dyspnea and Denies dyspnea on exertion GI Denies abdominal pain, Denies change in bowel habits, Denies excessive flatus, Denies nausea and Denies vomiting Denies urinary incontinence, Denies urinary hesitancy and Denies urinary urgency Musc Denies abnormal gait, Denies atrophy, Denies deformity and Denies limited range of motion Neuro Denies abnormal gait, Denies behavioral changes and Denies lack of coordination Psych Denies behavioral changes Physical exam (Primary Care) Vital Signs: Last Vital Signs BP 118/82 03/15/25 08:20 BMI result Body Mass Index 38.4 BMI Assessment/Plan discussion: High BMI High, discussed plan: lifestyle, weight reduction, dietary, physical activity and alcohol moderation Tobacco/Smoking Status: Tobacco use Status Tobacco use date assessed 11/21/24 03/15/25 08:25 Patient Tobacco Use Status Current everyday Tobacco 03/15/25 08:25 Tobacco use type Cigarette 03/15/25 08:25 e-Cigarette/Vaping Use Never Used 03/15/25 08:25 Thrive Assessment: Date of Thrive Assessment Date Thrive assessed 11/21/24 03/15/25 08:25 Resp Effort & Inspection: normal respiratory effort Auscultation: clear to auscultation bilaterally Cardio Jugular venous distension: no JVD Rate: regular rate Rhythm: regular rhythm Heart sounds: S1 normal heart sound present and S2 normal heart sound present Extrem General: Yes full ROM Coding Level of Care Code Est Pt Level 4 (00727) Complex EM visit Add On G2211 Diagnoses Pre-op evaluation Z01.818 Moderate asthma J45.909 Environmental allergies Z91.09 Class 2 obesity with body mass index (BMI) of 38.0 to 38.9 in adult E66.812; Z68.38 Time Spent (min) 20 Assessment & Plan Assessment & Plan (1) Pre-op evaluation: Code(s): Z01.818 - Encounter for other preprocedural examination Category: Medical (2) Moderate asthma: Comment: has rescue inhaler-well controlled at this time Code(s): J45.909 - Unspecified asthma, uncomplicated Category: Medical (3) Environmental allergies: Code(s): Z91.09 - Other allergy status, other than to drugs and biological substances Category: Medical (4) Class 2 obesity with body mass index (BMI) of 38.0 to 38.9 in adult: Code(s): E66.812 - Obesity, class 2; Z68.38 - Body mass index [BMI] 38.0-38.9, adult Category: Medical Plan The patient is medically cleared for the upcoming abdominoplasty and breast lift surgery scheduled for April 05. She has been assessed with a 0.4% risk of cardiac complications intraoperatively, classified as class 1 with no medical control indication by the Revised Cardiac Risk Index RCRI). The patient should continue her current asthma management with Advair and follow up with her chief information security officer as planned. She is advised to maintain her cessation of smoking to optimize surgical outcomes and recovery. Patient was informed and verbally consented to the use of an ambient scribe for clinic note documentation during this visit. I discussed with the patient the results of her preoperative evaluation, confirming that she is medically cleared for surgery with a low risk of cardiac complications. We reviewed her asthma management plan and the importance of maintaining smoking cessation to ensure optimal surgical outcomes. Patient Instructions: - Continue using Advair daily for asthma management. - Follow up with your chief information security officer as planned. - Maintain smoking cessation to optimize surgical outcomes.
[2025-03-15 08:20] VITALS: BP 118/82; PULSE 80; RESP 12; BMI 38.4
--- OUTSIDE RECORDS SUMMARY | 2025-03-15 08:22 | XMS_ITS | Data Portability ---
Author Organization [place] - [facility], Allergy Address [address] [place] [phone] Care Team Providers Care Automated Cutting Machine Operator Name Role Phone XI GONZALEZ Primary Care Provider [phone] Assessment No assessment recorded. Plan of Treatment [...] be done here at f/u 2024 025 [facility] [place], [address] [facility], [facility] [address], [place], [address], 11/17/2024 10:38:08 Medication Orders budesonid e 0.5 mg/2 mL suspensio n for nebulizat ion 2024 025 [facility], [address] [place] [address], [id number], 01/02/2025 09:25:54 prednison e 10 mg tablet 2024 025 [facility], [address] [place] [address], [id number], 11/07/2024 11:21:46 doxycycli ne hyclate 100 mg tablet 2024 025 [facility], [address] [place] [address], [id number], 11/07/2024 11:21:46 fluticaso ne propionat e 50 mcg/actua tion nasal spray,dion pension 2024 025 [facility], [address], [place], [id number], 11/07/2024 11:21:46 Patient TargetsNo targets recorded. Patient InstructionsNo instructions recorded. Reason for Referral None Reported. Results Created Date Observation Date Name Description Value Unit Range Abnormal Flag Note LastModifiedBy Organization Detail LastModifiedTime 11/17/1911/16/2024 CT, sinus es, w/o contr ast No observ ation record ed. reppsteiner [facility] [place] [address] [address], [place], [address], 11/20/2024 14:46:34 Result Notes None recorded. Problems Name Problem SNOMED Code Status Onset Date Resolution Date Notes Provider Name and Address Organization Details Recorded Time Nasal congestion 99693836 Active 025 MEL Ta MD [address] [address], [place], [phone], [facility] - [facility] 5 11:05:36 Chronic sinusitis 03220177 Active 025 MEL Ta MD [address] [address], [place], [address], [facility] - [facility] 5 11:05:39 Seasonal allergic rhinitis 948871324 Active 025 MEL Ta MD [address] [address], [place], [phone], [facility] [place] 5 11:05:43 Polyp of nasal cavity 696299877 Active 025 MEL Ta MD [address] [place] [address], [place], [address], [facility] - [facility] [place] 5 11:10:36 Problem Notes None recorded. Procedures Surgical History Date Name Laterality Status Provider Name and Address Organization Details Recorded Time 01/02/2025 NasalEndos copy_DP completed MEL RESTREPO MD [address] [address], [place], [phone], [facility] 01/02/2025 08:44:55 11/07/2024 NasalEndos copy_DP completed MEL RESTREPO MD [address] [place] [facility] [address], [place], [phone], [facility] 11/07/2024 11:05:57 Imaging Results None recorded. Procedure [...] Updated DateTime 11/07/2024 165.1 cm 37.9 kg/m2 543835.06 g Mónica Kenny [facility] 11/07/2024 11:00:30 Date Recorded Body height Body mass index (BMI) Body weight Provider Name and Address Organization Details Last Updated DateTime 01/02/2025 165.1 cm 36.6 kg/m2 06786.32 g Móniac Kenny [facility] 01/02/2025 08:29:05 Social History None recorded. Functional Status None recorded. Mental Status None recorded. Family History Nothing Reported. Medical History Condition Response Allergies/Hayfever N Heart Problems N Anxiety N Tonsil Infections N Emphysema N Migraines Y Thyroid Problems N Glaucoma N Depression N COPD N Developmental Delay N Nasal or Sinus Problems Y Anemia N Immune System Disorder N Anesthesia Complications N Heart Attack (NM) N Other Skin Condition N Diabetes N [...] SNOMED-CT Code Diagnosis ICD10 Code Diagnosis Note [id number] MEL RESTREPO MD [facility] [address] [phone] 11/07/2024 10:49:49 11/07/2024 11:15:59 Nasal congestion 10491358 R09.81 due to polyps Chronic sinusitis 884475 00 J32.9 see below Polyp of nasal cavity 73 7335002 J33.0 She has bilateral polyps which are 100% obstructiv e. I recommend maximal medical therapy with doxy, prednisone and flonase. We will have her f/u with a CT sinus and assess improvemen t and the need for surgery. [id number] MEL RESTREPO MD [facility] [address] [facility] [place] [address] 01/02/2025 08:21:47 01/02/2025 08:42:29 Nasal congestion 48185711 R09.81 due to polyps Chronic sinusitis 283393 [address] scan demonstrat es pansinusit [...] the future. Polyp of nasal cavity 73 9856371 J33.0 She has bilateral polyps which are 100% obstructiv e.She only benefited slightly from maximal medical therapy. I discussed the off label use of budesonide rinses. She is interested in this. We will continue medical therapy with topical steroids and I will reassess in 4 months. She likely will need surgery at some point. Health Concerns Section Related Observation LastModified by Organization Jerilyn loyd LastModified Time None Recorded Concern Status LastModified by Organization Details LastModified Time None Recorded Advance Directives Directive None Recorded Payers Insurance Date Sequence Insurance Name Policy Number Policy Banuelos Covered Member ID Banuelos Member ID Guarantor Name 01/02/2025 1 [facility] NET PLAN (MEDICAID HMO) JUSTA Carvajal [id number] Clifford Carvajal 01/02/2025 1 [place] [facility] Clifford Carvajal [id number] Clifford Carvajal Notes Date Note Type Note [...] sprays. She does smoke. MEL RESTREPO MD [address] [place] [address], [phone], [facility] 11/07/2024 11:13:34 01/02/2025 text/html She reports [...] pansinusitis and nasal polyps. MEL RESTREPO MD [address] [place] [address], [phone], [facility] 01/02/2025 08:48:05 OBGyn Episode No OBEpisode recorded.
== END 2025-03-15 09:02 | disposition home or self-care (01) ==
PROVIDERS: PCP Internal Medicine; Visit Provider Internal Medicine
DX: Z01.818 Encounter for other preprocedural examination (principal); J45.909 Unspecified asthma, uncomplicated; Z91.09 Other allergy status, other than to drugs and biological substances; E66.812 Obesity, class 2; Z68.38 Body mass index [BMI] 38.0-38.9, adult

== ENCOUNTER → 2025-03-15 08:16 | Outpatient (BNVA) | payer OTHER, SELFPAY | PROVIDERS: PCP Internal Medicine; Visit Provider Internal Medicine | DX: Z01.818 Encounter for other preprocedural examination (principal); J45.909 Unspecified asthma, uncomplicated; E66.812 Obesity, class 2; Z68.38 Body mass index [BMI] 38.0-38.9, adult; Z91.09 Other allergy status, other than to drugs and biological substances; Z87.891 Personal history of nicotine dependence | CPT/HCPCS: 99212 ==

== ENCOUNTER 2025-04-02 10:57 | Outpatient (AMB) | payer OTHER, SELFPAY ==
--- NOTE | 2025-04-02 11:04 | MHC.OFFVISWM ---
VS Expanded 04/02/25 11:11 BP 117/80 Blood Pressure Location Rt brachial Blood Pressure Position Sitting Pulse 71 Pulse Source Pulse Oximeter Temp 96.9 F Temperature Source Temporal Artery Scan Pulse Oximetry 99 Oxygen Delivery Method Room Air Height 5 ft 5 in Weight 234 lb 6.4 oz BMI 39.0 Body Fat % 43.0 Body Fat Mass 100.8 Fat Free Mass 133.6 Visceral Fat Rating 11.0 Body Water % 40.8 Body Water Mass 95.6 Muscle Mass/Score 126.8 Basal Metabolic Rate/Score 1,879 Intake Visit Reasons: (OV) PO LSG 06/09/22 Cottage Parent Required: Yes Cottage Parent Services: Cottage Parent Present Cottage Parent Name: hospital cmi Allergies No Known Allergies Allergy (Mild, Verified 04/02/25 11:07) NKA Medication List - Last Reconciled 04/02/25 by ALESSANDRA Asher albuterol sulfate 90 mcg/actuation (Ventolin HFA) 2 puffs PO Q4-6H PRN 30 days fluticasone propion-salmeterol 115-21 mcg/actuation (Advair HFA) 2 puffs inhalation Q12H fluticasone propionate 50 mcg/actuation 2 sprays intranasal DAILY loratadine 10 mg PO DAILY HPI Comments Details: This?a?35?yo female who is s/p LSG without hiatal hernia repair on?06/09/2022. Presents for 2 year 10 month post op visit. She was seen in the office 12/05/2024 with a weight of 221.2 lb, prior to that she had not been seen in the office since December 2022 with a weight of 218 lb. Weight today is 234.4 lb with a BMI of 39. She has gained 13.2 lb since her visit in November. There has been a 109.2 pound weight loss,(initial weight 343.6 pounds) since starting the program on 01/02/2022 reflecting a 31.7 % total body weight loss and a weight loss of 70.9 pounds since surgery (operative weight 305.3 pounds) reflecting a 23.2 % TBWL since surgery. No complaints of nausea, emesis, abdominal pain or reflux. Reports infrequent but normal bowel movements everyday. She states that since last visit she was able to go to the right bmi and created a plan. She did not communicate with me her difficulty. She states she has stress and anxiety and eats sweets at at night. She was offered appointment at her last appointment in January but declined. She would like a referral to behavioral health. She additionally continues to not communicate Present meal plan includes: 1130-12 premier protein rtd 2-230 another shake 7pm meal pork chops, rice veg, not measuring quantity candy, donut, corn flakes (supposed to have a protein bar but not doing it) 48-64 oz water, no soda or juice. ? Exercise routine includes: treadmill, stationary bike and weight at home. PF treadmill 4 days per week, 300-400 emre no home exercise as she has a house guest [facility] Medical History Pre-op evaluation Well woman exam with routine gynecological exam Morbid obesity HTN (hypertension) GERD (gastroesophageal reflux disease) Hypertension H. pylori infection Cervical cancer screening control counseling Bacterial vaginosis Chlamydia infection Daytime somnolence Obesity, morbid, BMI 50 or higher Menstrual periods irregular Amenorrhea, secondary Potential exposure to STD Moderate asthma Surgical History S/P laparoscopic sleeve gastrectomy History of laparoscopic cholecystectomy Family History Father Hypertension Glaucoma Mother Hypertension Asthma Alzheimer's disease Son In good health Sister In good health Sister No problems noted. Brother No problems noted. Social History (Updated 04/02/25 @ 11:07 by Devi Ledezma CMA) Household Members: Children Housing: House Are you a primary respiratory care faculty to a significant other at home: No Do you presently have visiting nurse or other home services: No Alcohol intake: current Alcohol intake frequency: holidays/special occasions only Alcohol type: beer Patient Tobacco Use Status: Former Tobacco user Tobacco use type: Cigarette Cigarettes Per Day: 5 e-Cigarette/Vaping Use: Never Used Second Hand Smoke Exposure: No service: No Current occupational status: employed Current occupational exposures/hazards: No Cognitive needs: No Hearing needs: No Vision needs: No Female Reproductive History Menstrual Age of Menarche: 11 Physical Exam Const General: healthy appearing and no acute distress Resp Effort & Inspection: normal respiratory effort Auscultation: clear to auscultation bilaterally Cardio Rate: regular rate Rhythm: regular rhythm GI Auscultation: normal bowel sounds Extrem General: Yes normal to inspection Assessment & Plan Assessment & Plan (1) S/P laparoscopic sleeve gastrectomy: Comment: May 2022 Code(s): Z98.84 - Bariatric surgery status Category: Surgical Plan: Patient is not following the plans although she was able to create a meal plan on right BMI jose antonio. Encouraged her to follow the meal plan exactly. Additionally, she states that she does not like protein bars, and I encouraged her to remove them from the option. Encouraged her to go to the gym 7 days a week as she is able to do so. Encouraged her to increase exercise and improve consistency. Encouraged to text weekly especially if she is having any problems with the plans. We will refer her to behavioral health for her underlying anxiety which she states is causing her to eat donuts and candy and serial at night. Admittedly, she is not following the plan after dinner. We will have her return to the office in approximately 1 month Orders: Referrals Behavioral Health Referral F41.9 - Anxiety disorder, unspecified
[2025-04-02 11:11] VITALS: BP 117/80; PULSE 71; TEMP 36.1; O2SAT 99; BMI 39.0
--- OUTSIDE RECORDS SUMMARY | 2025-04-02 11:58 | XMS_ITS | Data Portability ---
Author Organization [place] - [facility], Allergy Address [address] [address] Care Team Providers Care Contract Design Agent Name Role Phone XI GONZALEZ Primary Care [...] be done here at f/u 2024 025 [facility], [address] [facility] [address], [place], [address], 11/17/2024 10:38:08 Medication Orders budesonid e 0.5 mg/2 mL suspensio n for nebulizat ion 2024 025 [facility], [address] [place] [address], [id number], 01/02/2025 09:25:54 prednison e 10 mg tablet 2024 025 [facility], [address] [place] [address], [id number], 11/07/2024 11:21:46 doxycycli ne hyclate 100 mg tablet 2024 025 [facility], [address] [place] [address], [id number], 11/07/2024 11:21:46 fluticaso ne propionat e 50 mcg/actua tion nasal spray,dion pension 2024 025 [facility], [address] , [place], [place], [id number], 11/07/2024 11:21:46 Patient TargetsNo targets recorded. Patient InstructionsNo instructions recorded. Reason for Referral None Reported. Results Created Date Observation Date Name Description Value Unit Range Abnormal Flag Note LastModifiedBy Organization Detail LastModifiedTime 11/17/1911/16/2024 CT, sinus es, w/o contr ast No observ ation record ed. reppsteiner [facility] [address] [address], [place], [address], 11/20/2024 14:46:34 Result Notes None recorded. Problems Name Problem SNOMED Code Status Onset Date Resolution Date Notes Provider Name and Address Organization Details Recorded Time Nasal congestion 39146314 Active 025 MEL Ta MD [address] [address], [place], [phone], [facility] 5 11:05:36 Chronic sinusitis 16070535 Active 025 MEL Ta MD [address] [address], [place], [address], [facility] 5 11:05:39 Seasonal allergic rhinitis 521272194 Active 025 MEL Ta MD [address] [address], [place], [address], [facility] 5 11:05:43 Polyp of nasal cavity 138100419 Active 025 MEL Ta MD [address] [address], [place], [address], [facility] 5 11:10:36 Problem Notes None recorded. Procedures Surgical History Date Name Laterality Status Provider Name and Address Organization Details Recorded Time 01/02/2025 NasalEndos copy_DP completed MEL RESTREPO MD [address], [address], [facility] 01/02/2025 08:44:55 11/07/2024 NasalEndos copy_DP completed MEL RESTREPO MD [address], [address], [facility] 11/07/2024 11:05:57 Imaging Results None recorded. Procedure [...] Updated DateTime 11/07/2024 165.1 cm 37.9 kg/m2 225099.06 g Mónica Kenny [facility] 11/07/2024 11:00:30 Date Recorded Body height Body mass index (BMI) Body weight Provider Name and Address Organization Details Last Updated DateTime 01/02/2025 165.1 cm 36.6 kg/m2 29446.32 g Mónica Kenny [facility] 01/02/2025 08:29:05 Social History None recorded. Functional Status None recorded. Mental Status None recorded. Family History Nothing Reported. Medical History Condition Response Allergies/Hayfever N Heart Problems N Anxiety N Tonsil Infections N Emphysema N Migraines Y Thyroid Problems N Depression N COPD N Developmental Delay N Glaucoma N Nasal or Sinus Problems Y Anemia N Immune System Disorder N Anesthesia Complications N Heart Attack ([place]) N Other Skin Condition N Diabetes N Rhinitis N Bleeding Disorder N Food Allergy N Hearing Loss N Arthritis N Hyperlipidemia N Cancer N Stroke N Dementia N Nasal polyps Y Asthma Y Sleep Disorder N High Cholesterol N GERD/Reflux N Liver Disease N Headaches N Fibromyalgia N Hypertension Y Speech Delay N Kidney Disease N Gynecological HistoryNo gynecological history recorded. Obstetrics History GPAL:G 0 P 0 0 0 0 Past Encounters Encounter ID Performer Location Encounter Start Date Encounter Closed Date Diagnosis/Indication Diagnosis SNOMED-CT Code Diagnosis ICD10 Code Diagnosis Note [id number] MEL RESTREPO MD [facility] [address] [address] 11/07/2024 10:49:49 11/07/2024 11:15:59 Nasal congestion 90310879 R09.81 due to polyps Chronic sinusitis 448367 00 J32.9 see below Polyp of nasal cavity 73 7586961 J33.0 She has bilateral polyps which are 100% obstructiv e. I recommend maximal medical therapy with doxy, prednisone and flonase. We will have her f/u with a CT sinus and assess improvemen t and the need for surgery. [id number] MEL RESTREPO MD [facility] [address] [facility] [place] [address] 01/02/2025 08:21:47 01/02/2025 08:42:29 Nasal congestion 33796681 R09.81 due to polyps Chronic sinusitis 142919 [address] scan demonstrat es pansinusit [...] the future. Polyp of nasal cavity 73 6791158 J33.0 She has bilateral polyps which are [...] Banuelos Member ID Guarantor Name 01/02/2025 1 [facility] (MEDICAID HMO) JUSTA Carvajal [id number] Clifford Diane 01/02/2025 1 [place] [facility] Clifford Carvajal [id number] Clifford Carvajal Notes Date Note Type Note [...] sprays. She does smoke. MEL RESTREPO MD [address] [place] [address], [phone], [facility] 11/07/2024 11:13:34 01/02/2025 text/html She reports nasa [...] pansinusitis and nasal polyps. MEL RESTREPO MD [address] [place] [address],[address], [address], [facility] 01/02/2025 08:48:05 OBGyn Episode No OBEpisode recorded.
== END 2025-04-02 11:35 | disposition home or self-care (01) ==
LOC: HO.HBS 10:58
PROVIDERS: PCP Internal Medicine; Visit Provider Physician Assistant Surgical
DX: E66.9 Obesity, unspecified (principal); Z68.39 Body mass index [BMI] 39.0-39.9, adult; Z90.3 Acquired absence of stomach [part of]; Z98.84 Bariatric surgery status
CPT/HCPCS: 99213; G2211

== ENCOUNTER → 2025-04-02 10:57 | Outpatient (BNVA) | payer SELFPAY | PROVIDERS: PCP Internal Medicine; Visit Provider Physician Assistant Surgical | DX: E66.01 Morbid (severe) obesity due to excess calories (principal); K21.9 Gastro-esophageal reflux disease without esophagitis; Z68.39 Body mass index [BMI] 39.0-39.9, adult; Z90.49 Acquired absence of other specified parts of digestive tract; Z90.3 Acquired absence of stomach [part of]; Z91.199 Patient's noncompliance with other medical treatment and regimen due to unspecified reason | CPT/HCPCS: 99212 ==

== ENCOUNTER 2025-05-07 10:22 | Outpatient (AMB) | payer OTHER, SELFPAY ==
--- NOTE | 2025-05-07 10:25 | MHC.NURWM ---
Intake Intake Visit Reasons: (OV) PO LSG 06/09/22 Allergies No Known Allergies Allergy (Mild, Verified 04/02/25 11:07) NKA Coding
--- NOTE | 2025-05-07 10:28 | MHC.OFFVISWM ---
VS Expanded 05/07/25 10:34 BP 123/79 Blood Pressure Location Rt brachial Blood Pressure Position Sitting Pulse 86 Pulse Source Pulse Oximeter Temp 97.0 F Temperature Source Temporal Artery Scan Pulse Oximetry 100 Oxygen Delivery Method Room Air Height 5 ft 5 in Weight 220 lb 3.2 oz BMI 36.6 Body Fat % 34.7 Body Fat Mass 76.2 Fat Free Mass 143.8 Visceral Fat Rating 8.0 Body Water % 46.8 Body Water Mass 103.0 Muscle Mass/Score 136.4 Basal Metabolic Rate/Score 1,969 Intake Visit Reasons: (OV) PO LSG 06/09/22 Computer Support Analyst Required: No Computer Support Analyst Services: Computer Support Analyst Offered & Declined Allergies No Known Allergies Allergy (Mild, Verified 05/07/25 10:35) NKA Medication List - Last Reconciled 05/07/25 by ALESSANDRA Asher albuterol sulfate 90 mcg/actuation (Ventolin HFA) 2 puffs PO Q4-6H PRN 30 days fluticasone propion-salmeterol 115-21 mcg/actuation (Advair HFA) 2 puffs inhalation Q12H fluticasone propionate 50 mcg/actuation 2 sprays intranasal DAILY loratadine 10 mg PO DAILY HPI Comments Details: This?a?35?yo female who is s/p LSG without hiatal hernia repair on?06/09/2022. Presents for 2 year 11 month post op visit. She was seen in the office 12/05/2024 with a weight of 221.2 lb, prior to that she had not been seen in the office since December 2022 with a weight of 218 lb. Weight today is 220.2 lb with a BMI of 36.6. There has been a 123.4 pound weight loss,(initial weight 343.6 pounds) since starting the program on 01/02/2022 reflecting a 35.9 % total body weight loss and a weight loss of 85.1 pounds since surgery (operative weight 305.3 pounds) reflecting a 27.8 % TBWL since surgery. No complaints of nausea, emesis, abdominal pain or reflux. Reports infrequent but normal bowel movements everyday. She states that since last visit she went to [place] for a Mommy make over . Breast reduction and tummy tuck. She was told no exercise for 3-4 months. She was last seen 2 weeks ago by phone, no further appointments. Has Right BMI plan but not following it. She is not currently exercising given her recent surgery. Present meal plan includes: 10-12 premier protein rtd 2-230 another shake 5pm meal pork chops, rice veg, not measuring quantity candy, donut, corn flakes (supposed to have a protein bar but not doing it) 48-64 oz water, no soda or juice. ? Exercise routine includes: none PFSH Medical History Pre-op evaluation Well woman exam with routine gynecological exam Morbid obesity HTN (hypertension) GERD (gastroesophageal reflux disease) Hypertension H. pylori infection Cervical cancer screening control counseling Bacterial vaginosis Chlamydia infection Daytime somnolence Obesity, morbid, BMI 50 or higher Menstrual periods irregular Amenorrhea, secondary Potential exposure to STD Moderate asthma Surgical History S/P laparoscopic sleeve gastrectomy History of laparoscopic cholecystectomy Family History Father Hypertension Glaucoma Mother Hypertension Asthma Alzheimer's disease Son In good health Sister In good health Sister No problems noted. Brother No problems noted. Social History (Updated 04/02/25 @ 11:07 by Devi Ledezma CMA) Household Members: Children Housing: House Are you a primary home health care coordinator to a significant other at home: No Do you presently have visiting nurse or other home services: No Alcohol intake: current Alcohol intake frequency: holidays/special occasions only Alcohol type: beer Patient Tobacco Use Status: Former Tobacco user Tobacco use type: Cigarette Cigarettes Per Day: 5 e-Cigarette/Vaping Use: Never Used Second Hand Smoke Exposure: No service: No Current occupational status: employed Current occupational exposures/hazards: No Cognitive needs: No Hearing needs: No Vision needs: No Female Reproductive History Menstrual Age of Menarche: 11 Physical Exam Const General: healthy appearing and no acute distress Resp Effort & Inspection: normal respiratory effort Auscultation: clear to auscultation bilaterally Cardio Rate: regular rate Rhythm: regular rhythm GI Auscultation: normal bowel sounds Skin Other: Patient wearing supportive undergarments from her recent surgery and incisions can not be evaluated Extrem General: Yes normal to inspection Assessment & Plan Assessment & Plan (1) S/P laparoscopic sleeve gastrectomy: Comment: May 2022 Code(s): Z98.84 - Bariatric surgery status Category: Surgical Plan: Patient underwent a ?mommy make over? approximately 1 month ago. She was told not to exercise for 3-4 months. She was last seen 2 weeks ago by phone with no further follow-up appointments. She continues to eat candy and donuts encountered flex at night. She is not following a meal plan although does have the right BMI jose antonio. She made a meal plan on the jose antonio, but is not following it. Discussed the consequences of not following a meal plan, especially given recent surgery. She is not exercising and was advised to discuss with her surgeons in [place] when she is able to exercise. Strongly encouraged to at the very least follow the plan that she printed out from the right BMI jose antonio. she does not wish to have any lab work at this time nor did not want any particular advice. I have recommended that she return to the office in 3 months.
[2025-05-07 10:34] VITALS: BP 123/79; PULSE 86; TEMP 36.1; O2SAT 100; BMI 36.6
== END 2025-05-07 10:48 | disposition home or self-care (01) ==
LOC: HO.HBS 10:23
PROVIDERS: PCP Internal Medicine; Visit Provider Physician Assistant Surgical
DX: E66.9 Obesity, unspecified (principal); Z68.36 Body mass index [BMI] 36.0-36.9, adult; Z90.3 Acquired absence of stomach [part of]; Z98.84 Bariatric surgery status
CPT/HCPCS: 99213

== ENCOUNTER → 2025-05-07 10:22 | Outpatient (BNVA) | payer OTHER, SELFPAY | PROVIDERS: PCP Internal Medicine; Visit Provider Physician Assistant Surgical | DX: Z98.84 Bariatric surgery status (principal); F41.9 Anxiety disorder, unspecified | CPT/HCPCS: 99212 ==

== ENCOUNTER 2025-05-16 14:23 | Outpatient (AMB) | payer OTHER, SELFPAY ==
--- NOTE | 2025-05-16 14:00 | A.OFFWM_ITS ---
Intake Intake Visit Reasons: TV PO LSG 06/09/22 Allergies No Known Allergies Allergy (Mild, Verified 05/07/25 10:35) A [facility] Medical History Pre-op evaluation Well woman exam with routine gynecological exam Morbid obesity HTN (hypertension) GERD (gastroesophageal reflux disease) Hypertension H. pylori infection Cervical cancer screening control counseling Bacterial vaginosis Chlamydia infection Daytime somnolence Obesity, morbid, BMI 50 or higher Menstrual periods irregular Amenorrhea, secondary Potential exposure to STD Moderate asthma Surgical History S/P laparoscopic sleeve gastrectomy History of laparoscopic cholecystectomy Family History Father Hypertension Glaucoma Mother Hypertension Asthma Alzheimer's disease Son In good health Sister In good health Sister No problems noted. Brother No problems noted. Social History Household Members: Children Housing: House Are you a primary critical care clinical nurse specialist to a significant other at home: No Do you presently have visiting nurse or other home services: No Alcohol intake: current Alcohol intake frequency: holidays/special occasions only Alcohol type: beer Patient Tobacco Use Status: Former Tobacco user Tobacco use type: Cigarette Cigarettes Per Day: 5 e-Cigarette/Vaping Use: Never Used Second Hand Smoke Exposure: No service: No Current occupational status: employed Current occupational exposures/hazards: No Cognitive needs: No Hearing needs: No Vision needs: No Female Reproductive History Menstrual Age of Menarche: 11 Behavioral Health Assessment Weight Management Therapy Therapy Notes Details The patient is a 35-year-old female presenting for her initial behavioral health assessment, referred by her [facility] provider, ALESSANDRA Cristina, due to concerns about stress-related eating at night. She previously underwent weight-loss surgery on 06/09/2022. Today's session focused on a comprehensive diagnostic evaluation and identification of current needs. Confidentiality, privacy, and the terms of services provided by the program were reviewed and discussed. A PHQ-9 was administered, with a total score of 7. This score is indicative of mild depressive symptoms, which may be contributing to her current challenges with stress eating and overall self-care. Schumacher needs identified during the assessment include improving sleep hygiene, establishing a consistent meal schedule, increasing physical activity, managing high stress levels, and reducing frequent snacking throughout the day. The patient will return for continued assessment and to develop a treatment plan. Presenting Concerns Referral Source WMp-Provider. Reason for referral Weight-gain after weight-loss surgery Precipitating Event Night eating. Recent weight: 220Lbs. Her goal is to be at 170Lbs. Living Situation Current Living Situation Own At risk of losing current housing? No Satisfied with current living situation? Yes Comments PT lives with her , son (17y/o), mother and sister. Food/Weight/Diet Expectations of change The initial goal is to Patient wants to be at least 170-180Lbs PT is implementing the following: Current meal plan: advised to use therightBMI. But not following the plan. Exercise plan: Nothing over a month ago, as she had surgery. (Thaddeus low) Scale: yes. History/Relationship with food Example of meals before starting the program: Breakfast: Lunch: Dinner: Snacks: Drinks/Liquids: Social History Family history and relationship PT is 3 years ago, they have no children. PT has 1 son who is 19 y/o. PT lives with her mother and sister who need care due to medical issues. She has 3 siblings. 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 Developmental history and status None, WNL. Social support , her son. Community support PCP Spiritism/Spirituality None Cultural/Ethnic information Legal Involvement and History Current or historical involvement with the legal system? None reported. Education Highest grade completed 10th grade. Got GED. Preferred learning style Auditory, Verbal, Written, Learn by doing and Visual Currently enrolled in educational program? No Interested in further educational program? 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 ) Wants help to find employment? No Meaningful activities Reading, listen to music, crafts. Financial Situation Describe current financial situation Comfortable Financial assistance? None Service Service? No Mental Health and Addiction Treatment Current/Past substance abuse? No Comments Alcohol: Social. every couple month 5-6 beers. Cigarettes/Tobacco: none. Cannabis/Edibles: none Current/Past addictive behavior concerns? No Psychiatric history The patient reports a history of depression and anxiety and previously participated in counseling a few years ago. She is not currently engaged in any mental health treatment and is not taking any psychiatric medications. She denies any history of psychiatric hospitalization, mental health crises, or current safety concerns related to suicidal ideation or suicide attempts. She does disclose a history of self-harm at age 13. Medical and Physical Health Summary Additional Medical History not covered in history None aditional Sexual History concerns None reported Physical exam in the last year? Yes Pain Screening Current pain? No Pain in the last few months? No Medications Is the patient compliant with medications? Yes Does the patient have Chen Guardian in place? Not applicable Does the patient use complimentary health approaches? No Trauma/Abuse History History of trauma? No Questionnaires PHQ-9 Over the last 2 weeks, how often have you been bothered by any of the following problems? 1. Little interest or pleasure in doing things: several days 2. Feeling down, depressed, or hopeless: not at all 3. Trouble falling or staying asleep, or sleeping too much: more than half the days (Trouble falling) 4. Feeling tired or having little energy: several days 5. Poor appetite or overeating: nearly every day 6. Feeling bad about yourself - or that you are a failure or have let yourself or your family down: not at all 7. Trouble concentrating on things, such as reading the newspaper or watching television: not at all 8. Moving or speaking so slowly that other people could have noticed. Or the opposite - being so fidgety or restless that you have been moving around a lot more than usual: not at all 9. Thoughts that you would be better off or of hurting yourself in some way: not at all Total score: 7 Depression Screening Interpretation: Positive Depression Screening Done: Yes 13615 - PHQ-9 Billing: Yes Source: Developed by Drs. Kirill Walsh, Stacy Mart, Josef Munroe and colleagues, with an educational марина from [employer]. Assessment & Plan Assessment & Plan (1) Adjustment disorder: Code(s): F43.20 - Adjustment disorder, unspecified Qualifiers: Adjustment disorder type: with mixed disturbance of emotions and conduct Qualified Code(s): F43.25 - Adjustment disorder with mixed disturbance of emotions and conduct Plan The patient will return for continued assessment and to develop a treatment plan. Next jose antonio: 06/08/2025 at 2pm in person Telehealth Telehealth Telehealth Platform: [employer] Location of provider rendering services: other (Home office. [place], [place]) Location of patient: address on file Patient Identification confirmed using: Name, : Yes Telehealth method: voice only Patient verbally consented to treatment: Yes Patient verbally consented to billing insurance company: Yes Patient informed of any privacy concerns related to visit: Yes Minutes spent on Phone/Video with Pt.: 50 Coding Level of Care Code New Pt Tele Psy Diag Eval (90644) Patient Type New Diagnoses Adjustment disorder with mixed disturbance of emotions and conduct F43.25 Adjustment disorder type: with mixed disturbance of emotions and conduct Additional Codes PHQ-9 - 56082 - PHQ-9 Billing: Yes ([id number]) Time Spent (min) 50 Comment Start time: 2:10pm -End time: 3:00pm
== END 2025-05-16 15:28 | disposition home or self-care (01) ==
LOC: HO.HBST 14:23
PROVIDERS: PCP Internal Medicine; Visit Provider Counselor Mental Health
DX: F43.25 Adjustment disorder with mixed disturbance of emotions and conduct (principal)
CPT/HCPCS: 90791

== ENCOUNTER 2025-06-08 13:50 | Outpatient (AMB) | payer OTHER, SELFPAY ==
--- NOTE | 2025-06-08 14:00 | A.OFFWM_ITS ---
Intake Intake Visit Reasons: OV PO LSG 06/09/22 Allergies No Known Allergies Allergy (Mild, Verified 08/02/25 10:18) A FORMERLY [facility] Medical History (Updated 08/02/25 @ 10:33 by Gale Howard MD) Pre-op evaluation Well woman exam with routine gynecological exam Morbid obesity HTN (hypertension) GERD (gastroesophageal reflux disease) Hypertension H. pylori infection Cervical cancer screening control counseling Bacterial vaginosis Chlamydia infection Daytime somnolence Obesity, morbid, BMI 50 or higher Menstrual periods irregular Amenorrhea, secondary Potential exposure to STD Moderate asthma Surgical History (Updated 08/02/25 @ 10:25 by Gale Howard MD) H/O abdominoplasty S/P laparoscopic sleeve gastrectomy History of laparoscopic cholecystectomy Family History Father Hypertension Glaucoma Mother Hypertension Asthma Alzheimer's disease Son In good health Sister In good health Sister No problems noted. Brother No problems noted. Social History Household Members: Children Housing: House Are you a primary careers adviser to a significant other at home: No Do you presently have visiting nurse or other home services: No Alcohol intake: current Alcohol intake frequency: holidays/special occasions only Alcohol type: beer Patient Tobacco Use Status: Former Tobacco user Tobacco use type: Cigarette Cigarettes Per Day: 5 e-Cigarette/Vaping Use: Never Used Second Hand Smoke Exposure: Yes service: No Current occupational status: employed Current occupational exposures/hazards: No Cognitive needs: No Hearing needs: No Vision needs: No Female Reproductive History Menstrual Age of Menarche: 11 Behavioral Health Assessment Weight Management Therapy Therapy Notes Details Patient presents for a behavioral health follow-up visit. Today, we completed the comprehensive assessment and explored factors contributing to challenges with weight loss and goal attainment. We discussed ongoing unhealthy routines and how these patterns contribute to increased hunger and persistent food-related thoughts. The session emphasized the importance of meeting daily protein goals, maintaining adequate hydration, and engaging in regular exercise. Interventions included identifying specific triggers for unhealthy eating, devel oping strategies to manage cravings, and creating a structured meal and activity plan. We practiced cognitive-behavioral techniques to challenge negative self- talk and increase motivation. The patient was encouraged to use self-monitoring tools, such as food and activity logs, to increase accountability. We also discussed setting realistic, achievable short-term goals to help rebuild momentum and confidence in her weight-loss journey. Presenting Concerns Referral Source WMp-Provider. Reason for referral Weight-gain after weight-loss surgery Precipitating Event Night eating. Recent weight: 220Lbs. Her goal is to be at 170Lbs. Living Situation Current Living Situation Own At risk of losing current housing? No Satisfied with current living situation? Yes Comments PT lives with her , son (17y/o), mother and sister. Food/Weight/Diet Expectations of change Most recent weight: 212Lbs Patient wants to be at least 170-180Lbs PT is implementing the following: Current meal plan: advised to use therightBMI. But not following the plan. Exercise plan: Nothing 2 months ago, as she had surgery. (Thaddeus low) Scale: yes. History/Relationship with food She drinks 1 cup of coffee w/ cream in the morning. PT skips breakfast and lunch and ends up eating at 4-5pm, style meals, and then at night gets very hungry and snacks on cereal @10pm or chips. She drinks about 1 bottle of water at day, denies soda or juice intake. History/Relationship with weight PT reports she has always been overweight. 12/2021 ahs was 343 lbs. and her lowest w eight is 212Lbs (from 03/07/2025) after WLS. History/Relationship with dieting WLS 2021. gym 3x week. Binge Eating Do you frequently eat large amounts of food in short periods of time, not feeling physically hungry? No Do you feel out of control when you eat a large amount of food in a short period of time? No Do you eat large amounts of food rapidly and typically alone? No Night Eating Do you wake up at least once during the night to eat? No If you wake up in the night, do you find that it is necessary to eat something in order to fall back asleep? No Do you have little or no appetite in the morning and feel very hungry in the evening, often overeating between dinner and when you go to bed? Yes Social History Family history and relationship PT is 3 years ago, they have no children. PT has 1 son who is 19 y/o. PT lives with her mother and sister who need care due to medical issues. She has 3 siblings. 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 Developmental history and status None, WNL. Social support , her son. Community support PCP Mormon/Spirituality None Cultural/Ethnic information Legal Involvement and History Current or historical involvement with the legal system? None reported. Education Highest grade completed 10th grade. Got GED. Preferred learning style Auditory, Verbal, Written, Learn by doing and Visual Currently enrolled in educational program? No Interested in further educational program? 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 ) Wants help to find employment? No Meaningful activities Reading, listen to music, crafts. Financial Situation Describe current financial situation Comfortable Financial assistance? None Service Service? No Mental Health and Addiction Treatment Current/Past substance abuse? No Comments Alcohol: Social. every couple month 5-6 beers. Cigarettes/Tobacco: none. Cannabis/Edibles: none Current/Past addictive behavior concerns? No Psychiatric history The patient has a history of depression and anxiety and participated in counseling several years ago. She is not currently engaged in mental health treatment and is not taking any psychiatric medications. She denies any history of psychiatric hospitalization, mental health crises, or current safety concerns, including suicidal ideation or suicide attempts. She does report a history of self-harm at age 13. Medical and Physical Health Summary Additional Medical History not covered in history None aditional Sexual History concerns None reported Physical exam in the last year? Yes Pain Screening Current pain? No Pain in the last few months? No Medications Is the patient compliant with medications? Yes Does the patient have Chen Guardian in place? Not applicable Does the patient use complimentary health approaches? No Trauma/Abuse History History of trauma? No Assessment & Plan Assessment & Plan (1) Adjustment disorder: Code(s): F43.20 - Adjustment disorder, unspecified Plan Patient will return for follow-up in 3 weeks. Advised to contact the physician behavioral assistant or Dr. Ta to discuss updating her meal plan to include a wider variety of food options. In upcoming sessions, we will continue to focus on mindset, decision-making, and building discipline to support long-term, sustainable weight loss. Ongoing work will include reinforcing healthy routines, addressing barriers to consistency, and developing strategies for maintaining motivation and accountability post-surgery. * Next jose antonio: 06/27/2025 Coding [place] [address] Psytx >53 mins Patient Type Established Diagnoses Adjustment disorder F43.20 Time Spent (min) 60
== END 2025-06-08 15:06 | disposition home or self-care (01) ==
LOC: HO.HBST 13:51
PROVIDERS: PCP Internal Medicine; Visit Provider Counselor Mental Health
DX: F43.20 Adjustment disorder, unspecified (principal)
CPT/HCPCS: 90837

== ENCOUNTER 2025-08-02 09:48 | Outpatient (AMB) | payer OTHER, SELFPAY ==
--- NOTE | 2025-08-02 10:02 | MHC.PC.OV ---
Vital Signs 08/02/25 10:03 Height 5 ft 5 in Weight 208 lb 6 oz BMI 34.7 BP 130/82 Blood Pressure Location Rt brachial Position Sitting Pulse 78 Pulse Source Pulse Oximeter Temp 97.3 F Temp Source Temporal Artery Scan Pulse Oximetry (%) 98 Oxygen Delivery Method Room Air Intake Visit Reasons: pe Intake Note: Patient is here today for a physical. Healthcare Applications Analyst Required: Yes Healthcare Applications Analyst Language: Sudanese Molding Technician: Not Required per policy Accompanied by: Self / Same As Patient Allergies No Known Allergies Allergy (Mild, Verified 08/02/25 10:18) NKA Medication List - Last Reconciled 08/02/25 by Gale Howard MD albuterol sulfate 90 mcg/actuation (Ventolin HFA) 2 puffs PO Q4-6H PRN 30 days fluticasone propion-salmeterol 115-21 mcg/actuation (Advair HFA) 2 puffs PO Q12H fluticasone propionate 50 mcg/actuation 2 sprays intranasal DAILY loratadine 10 mg PO DAILY Tobacco use date assessed: 08/02/25 Dental Screening Dental Screen Date: 11/21/24 HPI HPI Comments History of Present Illness Details The patient is a 35-year-old female presenting for physical exam. She has hair loss. Pap smear done 2021 and was normal with HPV negative. The patient describes a severe scalp condition that resulted in complete baldness in one area, producing a yellow, dripping liquid. She reports the area is now drying. The patient's past medical history is significant for a cholecystectomy and gastrectomy in 2021. Her current medications include Advair, loratadine, and a nasal spray for allergies. She reports her Mirena IUD was removed. She denies any known medication allergies. She denies any history of depression or anxiety. [facility] Medical History (Updated 08/02/25 @ 10:33 by Gale Howard MD) Pre-op evaluation Well woman exam with routine gynecological exam Morbid obesity HTN (hypertension) GERD (gastroesophageal reflux disease) Hypertension H. pylori infection Cervical cancer screening control counseling Bacterial vaginosis Chlamydia infection Daytime somnolence Obesity, morbid, BMI 50 or higher Menstrual periods irregular Amenorrhea, secondary Potential exposure to STD Moderate asthma Surgical History (Updated 08/02/25 @ 10:25 by Gale Howard MD) H/O abdominoplasty S/P laparoscopic sleeve gastrectomy History of laparoscopic cholecystectomy Family History Father Hypertension Glaucoma Mother Hypertension Asthma Alzheimer's disease Son In good health Sister In good health Sister No problems noted. Brother No problems noted. Social History Household Members: Children Housing: House Are you a primary healthcare associate to a significant other at home: No Do you presently have visiting nurse or other home services: No Alcohol intake: current Alcohol intake frequency: holidays/special occasions only Alcohol type: beer Patient Tobacco Use Status: Former Tobacco user Tobacco use type: Cigarette Cigarettes Per Day: 5 e-Cigarette/Vaping Use: Never Used Second Hand Smoke Exposure: Yes service: No Current occupational status: employed Current occupational exposures/hazards: No Cognitive needs: No Hearing needs: No Vision needs: No Female Reproductive History Menstrual Age of Menarche: 11 Questionnaire PHQ-9 Over the last 2 weeks, how often have you been bothered by any of the following problems? 1. Little interest or pleasure in doing things: not at all 2. Feeling down, depressed, or hopeless: not at all 3. Trouble falling or staying asleep, or sleeping too much: not at all 4. Feeling tired or having little energy: not at all 5. Poor appetite or overeating: not at all 6. Feeling bad about yourself - or that you are a failure or have let yourself or your family down: not at all 7. Trouble concentrating on things, such as reading the newspaper or watching television: not at all 8. Moving or speaking so slowly that other people could have noticed. Or the opposite - being so fidgety or restless that you have been moving around a lot more than usual: not at all 9. Thoughts that you would be better off or of hurting yourself in some way: not at all Total score: 0 Depression Screening Interpretation: Negative Depression Screening Done: Yes 64184 - PHQ-9 Billing: Yes Source: Developed by Drs. Kirill Walsh, Stacy Mart, Josef Munroe and colleagues, with an educational марина from [employer]. Thrive Questionnaire Date Thrive assessed: 08/02/25 I am a: Patient What is your living situation today?: I have a steady place to live Within the past 12 months, did the food you bought not last and you didn't have the money to get more?: Never true Within the past 12 months, did you worry whether your food would run out before you got money to buy more?: Never true Do you have trouble paying for medicines?: No Do you have trouble getting transportation to medical appointments?: No Do you have trouble paying your heating and electricity bill?: No Do you have trouble taking care of your child, family member or friend?: No Do you have trouble with day-to-day activities such as bathing, preparing meals, shopping, managing finances, etc.?: No Are you currently unemployed and looking for a job?: No Are you interested in more education?: No Please select the resources that you would like help with: None Currently or been in a relationship where the following occur: No concerns reported THRIVE Score: 0 AUDIT C Alcohol Use Questionnaire (AUDIT-C) 1. How often do you have a drink containing alcohol?: Monthly or less 2. How many drinks containing alcohol do you have on a typical day when you are drinking?: 1 or 2 3. How often do you have six or more drinks on one occasion?: Never Total Score: 1 Score Reviewed/Action Taken: No NAYLA-7 AMB Questionnaire NAYLA-7 Date NAYLA - 7 assessed: 11/21/24 Feeling nervous, anxious, or on edge: 0 = Not at all Not being able to stop or control worryin = Not at all Worrying too much about different things: 1 = Several days Trouble relaxin = Not at all Being so restless that it is hard to sit still: 0 = Not at all Becoming easily annoyed or irritable: 1 = Several days Feeling afraid as if something awful might happen: 0 = Not at all Total NAYLA-7 score (0-4 normal; 5-9 mild; 10-14 moderate; 15-21 severe): 2 Source: Developed by Drs. Kirill Walsh, Stacy Mart, Josef Munroe and colleagues, with an educational марина from [employer]. NAYLA-7 Assessment Billing NAYLA-7 Assessment Tool: NAYLA-7 Assessment 94392 Review of Systems Const All systems reviewed & are unremarkable except as noted in HPI and below Card Denies chest pain at rest, Denies chest pain with activity, Denies edema, Denies irregular heart rhythm, Denies claudication, Denies dyspnea, Denies dyspnea on exertion, Denies orthopnea, Denies paroxysmal nocturnal dyspnea and Denies slow heart rate Resp Denies cough, Denies dyspnea and Denies dyspnea on exertion GI Denies abdominal pain, Denies change in bowel habits, Denies excessive flatus, Denies nausea and Denies vomiting Neuro Denies lack of coordination Physical exam (Primary Care) Vital Signs: Last Vital Signs Temp 97.3 F 08/02/25 10:03 Pulse 78 08/02/25 10:03 BP 130/82 08/02/25 10:03 Pulse Ox 98 08/02/25 10:03 Oxygen Delivery Method Room Air 08/02/25 10:03 BMI result Body Mass Index 34.7 BMI Assessment/Plan discussion: High BMI High, discussed plan: lifestyle, weight reduction, dietary and physical activity Tobacco/Smoking Status: Tobacco use Status Tobacco use date assessed 08/02/25 08/02/25 10:07 Patient Tobacco Use Status Former Tobacco user 08/02/25 10:07 Tobacco use type Cigarette 08/02/25 10:07 e-Cigarette/Vaping Use Never Used 08/02/25 10:07 PHQ-9: PHQ-9 Score PHQ-9: Total score 0 08/02/25 10:35 Depression Screening Interpretation: Negative Thrive Assessment: Date of Thrive Assessment Date Thrive assessed 08/02/25 08/02/25 10:07 Currently or been in a relationship where the following occur: No concerns reported [facility] Head: Yes normal to inspection, Yes normocephalic and Yes atraumatic Ears: external ears normal Eyes General: appearance normal, both eyes and all related structures Eyelids: Yes eyelids normal Conjunctivae: conjunctivae normal Neck Neck: Yes normal visual inspection and Yes supple Resp Effort & Inspection: normal respiratory effort Auscultation: clear to auscultation bilaterally Cardio Jugular venous distension: no JVD Rate: regular rate Rhythm: regular rhythm Heart sounds: S1 normal heart sound present and S2 normal heart sound present GI Inspection: Yes normal to inspection Palpation (GI): Soft to palpation and nontender Auscultation: normal bowel sounds Skin General skin exam: no rashes or lesions noted Neuro General: no focal motor deficits Extrem General: Yes full ROM Psych Appearance: grossly normal Office Procedures Flu Questionnaire Does the patient have a severe egg allergy?: No Does the patient have severe life threatening allergies?: No Does the patient have a fever or illness today?: No Has the patient ever had Guillain-Cheriton Syndrome?: No Has the patient ever had any past reaction to a flu shot?: No Immunizations Fluarix [id number] (PF) 45 mcg (15 mcg x 3)/0.5 mL IM syringe Performing Provider: Gale Howard MD [facility] Administered by: Rachel Cifuentes CMA on 08/02/25 10:35 Dose Route Admin Location Dispensed Lot Number Expiration Date NDC Investment Specialist 0.5 mL IM Left Deltoid 0.5 mL [id number] 03/26/26 99110-612-18 [employer] VIS Given Date VIS Provided VIS Publication Date 08/02/25 Single Vaccine 24 Eligibility Eligibility Date Funding Source Not [facility] Eligible 08/02/25 Private Coding Level of Care Code Est Pt Level 3 (32438) Est Pt Prev Care 18-39y(87401) Diagnoses Physical exam Z00.00 Hair loss L65.9 Additional Codes NAYLA-7 Assessment Billing - NAYLA-7 Assessment Tool: NAYLA-7 Assessment 75593 ([id number]) PHQ-9 - 03832 - PHQ-9 Billing: Yes ([id number]) Time Spent (min) 33 Assessment & Plan Assessment & Plan (1) Physical exam: Code(s): Z00.00 - Encounter for general adult medical examination without abnormal findings Category: Medical (2) Hair loss: Code(s): L65.9 - Nonscarring hair loss, unspecified Category: Medical Plan Plan 1. Physical exam Repeat in a year. 2. Alopecia The patient presents with significant hair loss, which was described as severe and exudative but is now showing signs of healing. A referral will be made to a medical translator in [place] for further evaluation and management. A prescription medication will also be provided for the condition. Orders: Orders Influenza [id number] Immunization Today Z23 - Encounter for immunization Referrals Dermatology Referral L65.9 - Nonscarring hair loss, unspecified Medications: New prednisone Take 4 tabs for 2 days, then 3 tabs for 2 days, then 2 tabs for 2 days, then 1 tab for 2 days 10 mg PO DIRECTED 20 tabs 0RF 8 days Refilled albuterol sulfate 90 mcg/actuation (Ventolin HFA) 2 puffs PO Q4-6H PRN 18 grams 2RF for wheezing 30 days J45.909 - Unspecified asthma, uncomplicated loratadine 10 mg PO DAILY 30 tabs 3RF J30.2 - Other seasonal allergic rhinitis
[2025-08-02 10:03] VITALS: BP 130/82; PULSE 78; TEMP 36.3; O2SAT 98; BMI 34.7
--- OUTSIDE RECORDS SUMMARY | 2025-08-02 11:06 | XMS_ITS | Continuity of Care Document ---
Author Organization [place] - [facility], [facility] Address [address] [place] [address] Care Team Providers Care Pan Devulcanizer Name Role Phone XI GONZALEZ Primary Care Provider [phone] Assessment No assessment recorded. Plan of Treatment Reminders Order Date Submit Date Provider Last Modified By Organization Details Last Modified Time Details Appointments Post Op 2025 01:30P M ALESSANDRA SELBY Not available Not available Not available Post Op 30 2025 02:00P M MEL Ta MD Not available Not available Not available Lab None recorded. Referral None recorded. Procedures None recorded. Surgeries septoplas ty (SURG) 2024 025 [email or web address] Not available 05/22/2025 12:57:14 endoscopy , nasal/sin us, w/ total ethmoidec myah (SURG) 2024 025 [email or web address] Not available 05/22/2025 12:57:13 endoscopy , nasal/sin us, w/ maxillary antrostom y & tissue removal (SURG) 2024 025 [email or web address] Not available 05/22/2025 12:57:13 stereotac tic computer- assisted navigatio n (SURG) 2024 025 [email or web address] Not available 05/22/2025 12:57:14 frontal sinusotom y (SURG) 2024 025 [email or web address] Not available 05/22/2025 12:57:14 Imaging None recorded. Medication Orders None recorded. Patient TargetsNo targets recorded. Patient InstructionsNo instructions recorded. Reason for Referral None Reported. Problems Name Problem SNOMED Code Status Onset Date Resolution Date Notes Provider Name and Address Organization Details Recorded Time Nasal congestion 06147100 Active 2024 MEL Ta MD [address] [address], [place], [address], [facility] 11:05:36 Chronic sinusitis 50124411 Active 2024 MEL Ta MD [address] [address], [place], [address], [facility] 11:05:39 Seasonal allergic rhinitis 953633944 Active 2024 MEL Ta MD [address] [address], [place], [address], [facility] 11:05:43 Polyp of nasal cavity 006597003 Active 2024 MEL Ta MD [address] [address], [place], [address], [facility] 11:10:36 Hypertrophy of nasal turbinates 73725207 Active 2024 MEL Ta MD [address] [address], [place], [address], [facility] 12:50:01 Deviated nasal septum 416319843 Active 2024 MEL Ta MD [address] [address], [place], [address], [facility] 12:50:01 Problem Notes None recorded. Procedures Surgical History Date Name Laterality Status Provider Name and Address Organization Details Recorded Time 01/02/2025 NasalEndos copy_DP completed MEL RESTREPO MD [address], [address], [facility] 01/02/2025 08:44:55 11/07/2024 NasalEndos copy_DP completed MEL RESTREPO MD [address] [place] [address], [address], [facility] - [facility] 11/07/2024 11:05:57 Imaging Results None recorded. Procedure Notes None recorded. Medical Equipment None Reported. Medications Name Sig Start Date Stop Date Status Note LastModified by Organization Details LastModified Time cyclobenzap rine 10 mg tablet active Not Available Not Available Not Available prednisone 10 mg tablet TAKE 4 TABLETS BY MOUTH EVERY DAY FOR 3 DAYS, THEN DECREASE TO 2 TABLETS DAILY FOR 3 DAYS, THEN 1 TABLET DAILY FOR 3 DAYS, THEN STOP 05/22 completed Not Available Not Available Not Available azithromyci n 250 mg tablet TAKE 2 TABLETS BY MOUTH ON DAY 1, THEN TAKE 1 TABLET DAILY ON DAYS 2-5 05/22 completed Not Available Not Available Not Available ondansetron HCl 4 mg tablet active Not Available Not Available Not Available sulfamethox azole 800 mg-trimetho prim 160 mg tablet TAKE 1 TABLET BY MOUTH TWICE DAILY active Not Available Not Available No t Available tramadol 50 mg tablet active Not Available Not Available No t Available vitamin A 3,000 mcg (10,000 unit) capsule TAKE 1 CAPSULE BY MOUTH EVERY DAY active Not Available Not Available No t Available budesonide 0.5 mg/2 mL suspension for nebulizatio n active Not Available Not Available Not Available fluticasone propionate 50 mcg/actuati on nasal spray,suspe nsion INSTILL 2 SPRAYS IN EACH NOSTRIL ONCE DAILY active Not Available Not Available No t Available clotrimazol e 1 % topical cream APPLY 1/4 GRAM TOPICALLY TO AFFECTED AREA(S) TWICE DAILY DIRECTED FOR quatro WEEKS active Not Available Not Available No t Available doxycycline hyclate 100 mg tablet TAKE 1 TABLET BY MOUTH TWICE DAILY FOR 10 DAYS 05/22 completed Not Available Not Available Not Available loratadine 10 mg tablet TAKE 1 TABLET BY MOUTH EVERY DAY active Not Available Not Available No t Available Ventolin HFA 90 mcg/actuati on aerosol inhaler INHALE 2 PUFFS BY MOUTH EVERY 4 TO 6 HOURS NEEDED FOR WHEEZING active Not Available Not Available No t Available Advair HFA 45 mcg-21 mcg/actuati on aerosol inhaler INHALE 2 PUFFS BY MOUTH TWICE DAILY. ADMINISTE R WITH SPACER. active Not Available Not Available No t Available Advair HFA 115 mcg-21 mcg/actuati on aerosol inhaler INHALE 2 PUFFS BY MOUTH EVERY TWELVE HOURS, RINSE MOUTH AFTER USING. active Not Available Not Available No t Available tranexamic acid 650 mg tablet TAKE 1 TABLET BY MOUTH DAILY. active Not Available Not Available No t Available Vitals Date Recorded Body height Provider Name an d Address Organization Details Last Updated DateTime 05/22/2025 165.1 cm ARCHIE JOHNATHANEdwin [place] - [facility] 05/22/2025 11:42:21 Social History None recorded. Functional Status None recorded. Mental Status None recorded. Family History Nothing Reported. Medical History Condition Response Allergies/Hayfever N Heart Problems N Anxiety N Tonsil Infections N Emphysema N Migraines Y Thyroid Problems N Glaucoma N Depression N COPD N Developmental Delay N Nasal or Sinus Problems Y Anemia N Immune System Disorder N Anesthesia Complications N Heart Attack ([place]) N Other Skin Condition N Diabetes N Rhinitis N Bleeding Disorder N Food Allergy N Arthritis N Hearing Loss N Hyperlipidemia N Cancer N Stroke N Dementia N Nasal polyps Y Asthma Y High Cholesterol N Sleep Disorder N GERD/Reflux N Liver Disease N Headaches N Fibromyalgia N Hypertension Y Speech Delay N Kidney Disease N Gynecological HistoryNo gynecological history recorded. Obstetrics History GPAL:G 0 P 0 0 0 0 Past Encounters Encounter ID Performer Location Encounter Start Date Encounter Closed Date Diagnosis/Indication Diagnosis SNOMED-CT Code Diagnosis ICD10 Code Diagnosis IMO Codes Diagnosis Note [id number] MEL RESTREPO MD [facility] [address] [address] 05/22/2025 11:38:30 05/22/2025 12:27:40 Nasal congestion 98488210 R09.81 due to polyps Chronic sinusitis 719681 [address] scan demonstrat es pansinusit is (I reviewed again today). She also has 100% obstructiv e nasal [...] s the risks and would like to proceed with surgery. She may require septoplast y due to left septal deviation if surgery is pursued in the future. Polyp of nasal cavity 73 0433314 J33.0 see above Deviated nasal septum 12 3604720 J34.2 Health Concerns Section Related Observation LastModified by Organization Detai ls LastModified Time None Recorded Concern Status LastModified by Organization Details LastModified Time None Recorded Payers Encounter Date Sequence Insurance Name Policy Number Policy Banuelos Covered Member ID Banuelos Member ID Guarantor Name 05/22/2025 1 [facility] - HEALTH NET PLAN (MEDICAID HMO) JUSTA Carvajal [id number] Clifford Carvajal Notes Date Note Type Note Provider Name and Address Organization Details Recorded Time 05/22/2025 text/html ROS as noted in the HPI She reports nasal blockage for 2 years. At the last visit nasal polyps were noted on nasal endoscopy and I offered surgery. She had minimal benefit from prednisone and antibiotics. She declined surgery and has been doing budesonide rinses with minimal improvement as well. I personally reviewed her CT sinus which was obtained since the last visit which showed pansinusitis and nasal polyps. MEL RESTREPO MD [address] [place] [address], [phone], [facility] - [facility] 05/22/2025 12:50:48 OBGyn Episode No OBEpisode recorded.
--- OUTSIDE RECORDS SUMMARY | 2025-08-02 11:06 | XMS_ITS | Data Portability ---
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 Name Role Phone XI GONZALEZ Primary Care [...] 025 [email or web address] Not available 05/22/2025 12:57:[address], sinuses, w/o contrast - to be done here at f/u 2024 025 [facility] [place], [address] , [facility] [address], [place], [address], 11/17/2024 10:38:08 Medication Orders budesonid e 0.5 mg/2 mL suspensio n for nebulizat ion 2024 025 [facility], [address] [place] [address], [id number], 01/02/2025 09:25:54 prednison e 10 mg tablet 2024 025 [facility], [address] [place] [address], [id number], 05/23/2025 15:36:42 doxycycli ne hyclate 100 mg tablet 2024 025 [facility], [address] [place] [address], [id number], 05/23/2025 15:36:42 fluticaso ne propionat e 50 mcg/actua tion nasal spray,dion pension 2024 025 [facility], [address] [place] [address], [id number], 11/07/2024 11:21:46 Patient TargetsNo targets recorded. Patient InstructionsNo instructions recorded. Reason for Referral None Reported. Results Created Date Observation Date Name Description Value Unit Range Abnormal Flag Note LastModifiedBy Organization Detail LastModifiedTime 11/17/19 25 11/16/2024 CT, sinus es, w/o contr ast No observ ation record ed. [email or web address] [facility] [place] [address], [place], [address], 11/20/2024 14:46:34 Result Notes None recorded. Problems Name Problem SNOMED Code Status Onset Date Resolution Date Notes Provider Name and Address Organization Details Recorded Time Nasal congestion 65049345 Active 2024 MEL Ta MD [address] [address], [facility] [place], [address], [facility] - [facility] 11:05:36 Chronic sinusitis 25304442 Active 2024 MEL Ta MD [address] [address], [facility] [place], [address], [facility] - [facility] 11:05:39 Seasonal allergic rhinitis 228943643 Active 2024 MEL Ta MD [address] [address], [facility] [place], [address], [facility] - [facility] 11:05:43 Polyp of nasal cavity 539094831 Active 2024 MEL Ta MD [address] [address], [facility] [place], [address], [facility] 11:10:36 Hypertrophy of nasal turbinates 70448733 Active 2024 MEL Ta MD [address] [address], [facility] [place], [address], [facility] 12:50:01 Deviated nasal septum 246476811 Active 2024 MEL Ta MD [address] [address], [facility] [place], [address], [facility] 12:50:01 Problem Notes None recorded. Procedures Surgical History Date Name Laterality Status Provider Name and Address Organization Details Recorded Time 01/02/2025 NasalEndos copy_DP completed MEL RESTREPO MD 100 [facility],[address], [address], [facility] 01/02/2025 08:44:55 11/07/2024 NasalEndos copy_DP completed MEL RESTREPO MD 100 [facility],[address], [address], [facility] 11/07/2024 11:05:57 Imaging Results None recorded. [...] Updated DateTime 11/07/2024 165.1 cm 37.9 kg/m2 446452.06 g Mónica Kenny [place] - [facility] 11/07/2024 11:00:30 Date Recorded Body height Body mass index (BMI) Body weight Provider Name and Address Organization Details Last Updated DateTime 01/02/2025 165.1 cm 36.6 kg/m2 03545.32 g Mónica Kenny [place] - [facility] 01/02/2025 08:29:05 Date Recorded Body height Provider Name an d Address Organization Details Last Updated DateTime 05/22/2025 165.1 cm ARCHIE MANNEdwin [place] - [facility] [place] 05/22/2025 11:42:21 Social History None recorded. Functional [...] Disorder N Anesthesia Complications N Heart Attack ([place]) N Other Skin Condition N Diabetes N [...] ICD10 Code Diagnosis IMO Codes Diagnosis Note [id number] MEL RESTREPO MD [facility] [address] [address] 11/07/2024 10:49:49 11/07/2024 11:15:59 Nasal congestion 84835122 R09.81 due to polyps Chronic sinusitis 663912 00 J32.9 see below Polyp of nasal cavity 73 4703784 J33.0 She has bilateral polyps which are 100% obstructiv e. I recommend maximal medical therapy with doxy, prednisone and flonase. We will have her f/u with a CT sinus and assess improvemen t and the need for surgery. [id number] MEL RESTREPO MD [facility] [address] [place] [address] 01/02/2025 08:21:47 01/02/2025 08:42:29 Nasal congestion 44244877 R09.81 due to polyps Chronic sinusitis 340632 [address] scan demonstrat es pansinusit [...] the future. Polyp of nasal cavity 73 5620900 J33.0 She has bilateral polyps which are 100% obstructiv e.She only benefited slightly from maximal medical therapy. I discussed the off label use of budesonide rinses. She is interested in this. We will continue medical therapy with topical steroids and I will reassess in 4 months. She likely will need surgery at some point. [id number] MEL RESTREPO MD [facility] [address] [address] 05/22/2025 11:38:30 05/22/2025 12:27:40 Nasal congestion 92713356 R09.81 due to polyps Chronic sinusitis 355717 [address] scan demonstrat es pansinusit [...] the future. Polyp of nasal cavity 73 9764566 J33.0 see above Deviated nasal septum 12 6733102 J34.2 Health Concerns Section Related Observation LastModified by Organization Detai ls LastModified Time None Recorded Concern Status LastModified by Organization Details LastModified Time None Recorded Advance Directives Directive None Recorded Payers Insurance Date Sequence Insurance Name Policy Number Policy Banuelos Covered Member ID Banuelos Member ID Guarantor Name 05/19/2025 1 [facility] - HEALTH NET PLAN (MEDICAID HMO) JUSTA Carvajal [id number] Clifford Carvajal 01/02/2025 1 [place] [facility] Clifford Carvajal [id number] Clifford Carvajal Notes Date Note Type Note Provider Name and Address Organization Details Recorded Time 11/07/2024 text/html ROS as noted in the HPI [...] sprays. She does smoke. MEL RESTREPO MD [address] [place] [address], [phone], [facility] 11/07/2024 11:13:34 01/02/2025 text/html ROS as noted in the HPI [...] pansinusitis and nasal polyps. MEL RESTREPO MD [address] [place] [address],[address], [address], [facility] 01/02/2025 08:48:05 05/22/2025 text/html ROS as noted in the [...] pansinusitis and nasal polyps. MEL RESTREPO MD [address] [place] [address], [place], [address], [facility] - [facility] 05/22/2025 12:50:48 OBGyn Episode No OBEpisode recorded.
== END 2025-08-02 10:39 | disposition home or self-care (01) ==
LOC: HO.HMCH 09:49
PROVIDERS: PCP Internal Medicine; Visit Provider Internal Medicine
DX: Z00.00 Encounter for general adult medical examination without abnormal findings (principal); L65.9 Nonscarring hair loss, unspecified; Z23 Encounter for immunization

== ENCOUNTER → 2025-08-02 09:48 | Outpatient (BNVA) | payer OTHER, SELFPAY | PROVIDERS: PCP Internal Medicine; Visit Provider Internal Medicine | DX: Z00.00 Encounter for general adult medical examination without abnormal findings (principal); L65.9 Nonscarring hair loss, unspecified; J45.909 Unspecified asthma, uncomplicated; Z23 Encounter for immunization | CPT/HCPCS: 90471; 90656; 96127; 99212; 99395 ==